=== PATIENT | female | born 1945 | race Caucasian/White ===

== ENCOUNTER → 2017-03-02 | Outpatient (CLI) | payer OTHER ==
[~2017-03-02] MED LIST: IOPAMIDOL (ISOVUE 370) 100 ML BTL IV ONE
== END ==
LOC: FIMAGING 10:34
PROVIDERS: ATTEND Thoracic Surgery (Cardiothoracic Vascular Surgery)
DX: I71.2 Thoracic aortic aneurysm, without rupture (principal)
CPT/HCPCS: 71275; Q9967

== ENCOUNTER 2017-03-08 06:35 | Inpatient (IN) | payer OTHER ==
[2017-03-08] MEDS ORDERED: diphenhydrAMINE 25 MG CAP PO ONE (06:45)
[2017-03-08] MEDS ORDERED: DIAZEPAM 5 MG TAB PO ONE (06:45)
[2017-03-08] MEDS ORDERED: FAMOTIDINE 20 MG TAB PO ONE (06:45)
[2017-03-08] MEDS ORDERED: ASPIRIN EC 325 MG TAB PO ONE (06:45)
[2017-03-08] MEDS ORDERED: NS 1,000 ML IV ONE (06:45)
--- NOTE | 2017-03-08 07:05 | CPEKG ---
Heart Rate: 66 RR Interval: 909 P-R Interval: 152 QRSD Interval: 96 QT Interval: 404 QTC Interval: 424 P [place]: 45 QRS [place]: 25 T Wave [place]: 59 EKG Severity - BORDERLINE ECG - EKG Impression: SINUS RHYTHM EKG Impression: BORDERLINE T ABNORMALITIES, LATERAL LEADS Electronically Signed By: Chris Woods 08-Mar-2017 08:35:45
[2017-03-08 07:28] LABS: % IMMATURE GRANULYOCYTES 0.4 % (0.0-1.1); ABSOLUTE IMMATURE GRANULOCYTES 0.02 10^3/uL (0.00-0.10); ADD DIFF? NO; ADD MORPH? NO; ADD SCAN? NO; ATYPICAL LYMPHOCYTE FLAG 10 (0-99); FRAGMENT RBC FLAG 0 (0-99); HEMATOCRIT 39.5 % (38.0-47.0); HEMOGLOBIN 12.9 g/dL (12.6-16.3); LEFT SHIFT FLG 0 (0-99); LIPEMIA HEMOLYSIS FLAG 80 (0-99); MEAN CELL HEMOGLOBIN 30.7 pg (27.9-34.1); MEAN CELL HEMOGLOBIN CONCENTR. 32.7 g/dL (32.4-36.7); MEAN PLATELET VOLUME 10.5 fL (8.7-11.7); PLATELET CLUMPS FLAG 0 (0-99); PLATELET COUNT 223 10^3/uL (150-400); RED CELL DISTRIBUTION WIDTH 12.8 % (11.5-15.2)
[2017-03-08 07:37] LABS: INR 0.94 (0.83-1.16); PROTIME(PATIENT) 12.5 SEC (12.0-15.0)
[2017-03-08] MEDS ORDERED: LIDOCAINE 1% 300 MG/30 ML SDV ONE (07:40)
[2017-03-08] MEDS ORDERED: fentaNYL 100 MCG/2 ML INJ ONE ×9 (07:40→17:12)
[2017-03-08] MEDS ORDERED: MIDAZOLAM 2 MG/2 ML VIAL ONE ×3 (07:41→18:03)
[2017-03-08] MEDS ORDERED: VERAPAMIL 5 MG/2 ML VIAL ONE (07:41)
[2017-03-08] MEDS ORDERED: IOPAMIDOL (ISOVUE-370) 150 ML BTL IV ONE (07:41)
[2017-03-08] MEDS ORDERED: HEPARIN 10,000 UNIT/10 ML MDV ONE ×4 (07:41→16:13)
[2017-03-08 07:49] LABS: ANION GAP 15 mEq/L (8-16); CALCIUM 9.8 mg/dL (8.5-10.4); CARBON DIOXIDE 23 mEq/l (22-31); CHLORIDE 105 mEq/L (97-110); CHOLESTEROL 249 mg/dL (140-220); CHOLESTEROL/HDL RATIO 2.62 RATIO (1.00-4.44); CREATININE 0.7 mg/dL (0.6-1.0); GLOMERULAR FILTRATION RATE > 60; GLUCOSE 87 mg/dL (70-100); HIGH DENSITY LIPOPROTEIN 95 mg/dL (40-85); LDL/HDL RATIO 1.49 RATIO (1.00-3.22); LOW DENSITY LIPOPROTEIN 142 mg/dL (80-100); MAGNESIUM 1.9 mg/dL (1.6-2.3); NON-HIGH DENSITY LIPOPROTEIN 154 mg/dL (90-129); POTASSIUM 4.3 mEq/L (3.5-5.2); SODIUM 143 mEq/L (134-144); TRIGLYCERIDE 61 mg/dL (35-135); VERY LOW DENSITY LIPOPROTEINS 12 mg/dL (8-25)
--- NOTE | 2017-03-08 08:30 | PDPROPOC ---
Sedation Plan of Care ASA Classification: ASA 3 Mallampati Score: Class 3 332 Rule: 332
--- NOTE | 2017-03-08 08:31 | PDHPUP ---
History & Physical Update H&P update statement: This history and physical update is based on an assessment of the patient which was completed after admission or registration (within 24 hours), but prior to the surgery/procedure. H&P update: H&P reviewed & patient examined, no change in patient's condition since H&P completed
[2017-03-08] MEDS ORDERED: ETOMIDATE 40 MG/20 ML INJ ONE (09:28)
[2017-03-08] MEDS ORDERED: OXYCODONE/APAP 5/325 TAB PO PRN (10:21)
[2017-03-08] MEDS ORDERED: NITROGLYCERIN 0.4 MG BTL SL PRN (10:21)
[2017-03-08] MEDS ORDERED: ATROPINE SULFATE 1 MG/10 ML SYR IVP PRN (10:21)
[2017-03-08] MEDS ORDERED: HYDROCODONE/APAP 5/325 TAB PO PRN (10:21)
[2017-03-08] MEDS ORDERED: ONDANSETRON 4 MG/2 ML VIAL IVP PRN (10:21)
--- NOTE | 2017-03-08 10:27 | PDDXCAT ---
Diagnostic Cath Note - . Date: 03/08/17 Residential Property Tax Appraiser: Olivia Indication: other (severe if not critical aortic stenosis) - Procedure Access: left wrist Procedure: left heart catheterization, coronary angiography, left ventriculogram , right heart catheterization - Materials Left Heart Cath materials: standard multipack (JL4, JR4, pigtail) Right Heart Cath size: 5F Right Heart Cath materials: PWP catheter - Findings-Left Heart Catheterization LM: 6 mm in size no flow limiting obstruction LAD: 4mm in size with branching diagonal and usual septal system AGATA III flow and no flow limiting dissection, thrombus or plaque LCX: dominant left system with 3 mm size and AGATA III flow no flow limiting plaque, dissection or thrombus RCA: non dominant bifurcates early into RV and acute marginal branch small in caliber no flow limiting obstruction EDP: 21mmHg LVEF: greater than 75% and hyperciontractile with no wall motion abnormality, no significant MR. The visualized protion of the thoracic aorta reveals a proximal aorta towards the right side. the aortic root has three sinuses of Valsalva most consistent with a trileaflet aortic valve that is likely functionally bicuspid. Wall motion: no segmental wall motion abnormality - Findings-Right Heart Catheterization RA: 7/12/9mmHg RV: 31/6/10mmHg PA: 30/14/20mmHg mean PAOP: 14/16/15mmHg AO: 108/55with a mean of 75mmHg CO: 6.42 liters per minute CI: 3.67 liters per minute ore meter squared Complications: none Estimated blood loss: <50ml Closure method: manual pressure Assessment: The patient has a left dominant system without flow limiting obstruction. Maximal luminal stenosis is 20% in the proximal LAD. The patient has critical aortic valve stenosis with an SUNDAR of 0.78cm squared. the peak to peak gradient was 84mmHg and the mean gradient was 54mmHg. The patient has a thoracic aortic aneurysm. Plan: Aortic valve and aortic root replacement under the care of Dr. Ponce.
--- NOTE | 2017-03-08 11:08 | CPEKG ---
Heart Rate: 60 RR Interval: 1000 P-R Interval: 172 QRSD Interval: 94 QT Interval: 432 QTC Interval: 432 P [place]: 45 QRS [place]: 40 T Wave [place]: 77 EKG Severity - BORDERLINE ECG - EKG Impression: SINUS RHYTHM EKG Impression: BORDERLINE T ABNORMALITIES, ANT-LAT LEADS Electronically Signed By: Chris Woods 08-Mar-2017 11:49:11
[2017-03-08 11:46] LABS: HEMOGLOBIN A1C 5.5 % (4.0-6.0)
[2017-03-08] MEDS ORDERED: NS 1,000 ML IV SCH (12:15)
--- NOTE | 2017-03-08 14:57 | CPEKG ---
Heart Rate: 66 RR Interval: 909 P-R Interval: 148 QRSD Interval: 92 QT Interval: 400 QTC Interval: 420 P [place]: 4 QRS [place]: 27 T Wave [place]: 69 EKG Severity - BORDERLINE ECG - EKG Impression: SINUS RHYTHM EKG Impression: BORDERLINE T ABNORMALITIES, ANT-LAT LEADS Electronically Signed By: Chris Woods 08-Mar-2017 16:31:07
[2017-03-08] MEDS ORDERED: AMINOCAPROIC ACID 5 GM/20 ML VIAL ONE ×2 (16:08→16:11)
[2017-03-08] MEDS ORDERED: ALBUMIN 5% 250 ML BOTTLE IV ONE ×2 (16:08→19:06)
[2017-03-08] MEDS ORDERED: CALCIUM CHLORIDE 1 GM/10 ML INJ ONE ×2 (16:08→16:10)
[2017-03-08] MEDS ORDERED: methylPREDNISolone SOD SUCC 1 GM/8 ML VIAL ONE (16:09)
[2017-03-08] MEDS ORDERED: LIDOCAINE 2% 100 MG/5 ML SYR ONE (16:09)
[2017-03-08] MEDS ORDERED: AMIODARONE HCL 150 MG/3 ML VIAL ONE ×2 (16:09→16:12)
[2017-03-08] MEDS ORDERED: CITRATE DEXTROSE SOLN 500 ML BAG ONE (16:09)
[2017-03-08] MEDS ORDERED: MAGNESIUM SULFATE 1 GM/2 ML VIAL ONE (16:09)
[2017-03-08] MEDS ORDERED: PROTAMINE SULFATE 50 MG/5 ML VIAL IVP ONE (16:10)
[2017-03-08] MEDS ORDERED: niCARdipine/NACL/200 ML BAG IV ONE (16:11)
[2017-03-08] MEDS ORDERED: DOPamine/DEXTROSE/250 ML BAG IV ONE (16:11)
[2017-03-08] MEDS ORDERED: POTASSIUM Cl (KCl) 20 MEQ/50 ML BAG IV ONE (16:11)
[2017-03-08] MEDS ORDERED: MILRINONE/DEXTROSE/100 ML BAG IV ONE (16:11)
[2017-03-08] MEDS ORDERED: NA BICARBONATE 50 MEQ/50 ML VIAL ONE (16:11)
[2017-03-08] MEDS ORDERED: ADENOSINE 6 MG/2 ML VIAL ONE (16:12)
[2017-03-08] MEDS ORDERED: ceFAZolin 1 GM VIAL ONE (16:12)
[2017-03-08] MEDS ORDERED: ROCURONIUM 100 MG/10 ML VIAL ONE (16:13)
[2017-03-08] MEDS ORDERED: PROPOFOL 200 MG/20 ML VIAL ONE (16:18)
--- NOTE | 2017-03-08 17:43 | PDANEPAE ---
ANE History of Present Illness av replacement, asc aorta aneur repair ANE Past Medical History - Cardiovascular History Hx Hypertension: No Hx Arrhythmias: Yes Hx Chest Pain: No Hx Coronary Artery / Peripheral Vascular Disease: No Hx CHF / Valvular Disease: No Hx Palpitations: No Cardiovascular History Comment: heart murmur. aortic stenosis. dilation of ascending aorta - Pulmonary History Hx COPD: No Hx Asthma/Reactive Airway Disease: No Hx Recent Upper Respiratory Infection: No Hx Oxygen in Use at Home: No Hx Sleep Apnea: No Sleep Apnea Screening Result - Last Documented: Negative Pulmonary History Comment: doesn't think she has 100% capacity with lungs - Neurologic History Hx Cerebrovascular Accident: No Hx Seizures: No Hx Dementia: No - Endocrine History Hx Diabetes: No - Renal History Hx Renal Disorders: Yes Renal History Comment: frequency with age - Liver History Hx Hepatic Disorders: No - Neurological & Psychiatric Hx Hx Neurological and Psychiatric Disorders: No - Cancer History Hx Cancer: No - Congenital Disorder History Hx Congenital Disorders: No - GI History Hx Gastrointestinal Disorders: No - Other Health History Other Health History: wears glasses - Chronic Pain History Chronic Pain: No - Surgical History Prior Surgeries: na ANE Review of Systems - Exercise capacity METS (RN): 4 METS ANE Patient History - Allergies Allergies/Adverse Reactions: ampicillin Allergy (Verified 03/07/17 18:33) Unknown Penicillins Allergy (Verified 03/08/17 15:43) Other-Enter Comments - Home Medications Home Medications: Aspirin EC [Aspirin EC 81 mg (*)] 81 mg PO DAILY 03/08/17 [Last Taken 3 Days Ago ] Herbals/Supplements -Info Only 1 ea PO DAILY 03/08/17 [Last Taken 3 Days Ago] Multivitamins [Multivitamin (*)] 1 each PO DAILY #0 03/08/17 [Last Taken 3 Days Ago] [place]-3 Fatty Acids [Fish Oil 1000 mg (*)] 1 cap PO DAILY #0 03/08/17 [Last Taken 3 Days Ago] Zolpidem Tartrate [Ambien] 5 mg PO DAILY PRN 03/08/17 [Last Taken Unknown] - NPO status NPO Since - Liquids (Date): 03/08/17 NPO Since - Liquids (Time): 13:30 NPO Since - Solids (Date): 03/07/17 NPO Since - Solids (Time): 19:00 - Smoking Hx Smoking Status: Never smoked - Family Anes Hx Family Hx Anesthesia Complications: none ANE Labs/Vital Signs - Labs Result Diagrams: 03/08/17 07:15 03/08/17 07:15 - Vital Signs Height: 168 cm Weight: 65.8 kg ANE Physical Exam - Airway Mallampati Score: Class 2 Mouth exam: normal dental/mouth exam - Pulmonary Pulmonary: no respiratory distress - Cardiovascular Cardiovascular: regular rate and rhythym - ASA Status ASA Status: III, E ANE Anesthesia Plan Anesthesia Plan: general endotracheal anesthesia Lines/Monitors: arterial line, central line, PENELOPE Urgent/Emergent Case: Sawyer solis completed preop but documented later for safe timely pt care
[2017-03-08] MEDS ORDERED: SUGAMMADEX SODIUM 200 MG/2 ML VIAL IVP ONE (19:28)
[2017-03-08] MEDS ORDERED: PANTOPRAZOLE SODIUM 40 MG in NS 100 ML IV ONE (19:53)
[2017-03-08] MEDS ORDERED: LACTULOSE 20 GM/30 ML UDCUP PO PRN (19:53)
[2017-03-08] MEDS ORDERED: MEPERIDINE 25 MG/ML SYR IVP PRN (19:53)
[2017-03-08] MEDS ORDERED: D50W 25 GM/50 ML SYR IVP PRN (19:53)
[2017-03-08] MEDS ORDERED: BISACODYL 10 MG SUPP PR PRN (19:53)
[2017-03-08] MEDS ORDERED: MAGNESIUM HYDROXIDE 30 ML UDCUP PO PRN (19:53)
[2017-03-08] MEDS ORDERED: CEPACOL LOZENGE PO PRN (19:53)
[2017-03-08] MEDS ORDERED: ACETAMINOPHEN 325 MG TAB PO PRN (19:53)
[2017-03-08] MEDS ORDERED: SODIUM CL NASAL 45 ML BTL EACHNARE PRN (19:53)
[2017-03-08] MEDS ORDERED: MAGNESIUM SULF 2 GM/WATER 50 ML IV ONE (19:53)
[2017-03-08] MEDS ORDERED: POLYETHYLENE GLYCOL 3350 17 GM PKT PO PRN (19:53)
[2017-03-08] MEDS ORDERED: ACETAMINOPHEN 650 MG SUPP PR PRN (19:53)
[2017-03-08] MEDS ORDERED: ONDANSETRON DISINTEGRATING 4 MG TAB PO PRN (19:53)
[2017-03-08] MEDS ORDERED: INSULIN REGULAR HUMAN 100 UNIT in NS 100 ML IV SCH (20:00)
--- NOTE | 2017-03-08 20:01 | POSTOPPROG ---
Post Op Note Date of Operation: 03/08/17 Surgeon: Son Ponce [employer] Aide: Rebeca Pre-op Diagnosis: , asc aortic aneurysm, question hemopericardium Post-op Diagnosis: same Procedure: Emergent AVR #23 Magna, replace asc aorta # 24 graft, SHORTY atriclip, drain p Findings: sanguinous pericardial effusion Inf/Abcess present in the surg proc area at time of surgery?: No EBL: 50-100
[2017-03-08] MEDS ORDERED: NALOXONE HCL 0.4 MG/ML INJ IVP PRN (20:23)
--- NOTE | 2017-03-08 20:23 | POSTANESTH ---
Post Anesthetic Evaluation Cardiovascular Status: Normal, Stable Respiratory Status: Requires Airway Assist (stable on vent) Level of Consciousness/Mental Status: Mildly Sleepy, Arousable Pain Control: Adequate, Prn Tx Ordered Nausea/Vomiting Control: Adequate, Prn Tx Ordered Complications Possibly Related to Anesthesia: None Noted
[2017-03-08] MEDS: fentaNYL 100 MCG/2 ML INJ IVP PRN ×2 (20:26→21:47)
[2017-03-08] MEDS: MUPIROCIN 2% 22 GM OINT NS SCH (21:16)
[2017-03-08] MEDS: SENNOSIDES/DOCUSATE SODIUM TAB PO SCH (21:17)
[2017-03-08] MEDS: ALBUMIN 5% 250 ML IV PRN ×2 (21:21→22:05)
[2017-03-08] MEDS: POTASSIUM Cl (KCl) 50 ML IV PRN (21:41)
[2017-03-08] MEDS: ceFAZolin 2 GM/DEXTROSE 100 ML IV SCH (21:41)
[2017-03-08 23:39] LABS: CALCULATED OXYGEN SATURATION 96 % (92-95); O2 CONCENTRATIION 60 % (0-100)
[2017-03-09] MEDS: POTASSIUM Cl (KCl) 50 ML IV PRN ×3 (00:02→03:10)
[2017-03-09] MEDS: ALBUMIN 5% 250 ML IV PRN ×2 (01:15→02:58)
[2017-03-09 01:24] LABS: CALCULATED OXYGEN SATURATION 99 % (92-95); O2 CONCENTRATIION 60 % (0-100)
[2017-03-09 01:24] LABS: CALCULATED OXYGEN SATURATION 97 % (92-95); O2 CONCENTRATIION 40 % (0-100)
[2017-03-09] MEDS: ONDANSETRON 4 MG/2 ML VIAL IVP PRN ×4 (01:29→21:26)
[2017-03-09] MEDS: METOCLOPRAMIDE 10 MG/2 ML VIAL IVP PRN ×3 (01:29→16:33)
[2017-03-09] MEDS: HYDROCODONE/APAP 5/325 TAB PO PRN ×2 (02:12→07:14)
[2017-03-09] MEDS: KETOROLAC 15 MG/1 ML SDV IVP PRN ×2 (02:17→08:01)
[2017-03-09 04:10] LABS: % IMMATURE GRANULYOCYTES 0.3 % (0.0-1.1); ABSOLUTE IMMATURE GRANULOCYTES 0.03 10^3/uL (0.00-0.10); ADD DIFF? NO; ADD MORPH? NO; ADD SCAN? NO; ATYPICAL LYMPHOCYTE FLAG 0 (0-99); FRAGMENT RBC FLAG 0 (0-99); HEMATOCRIT 27.1 % (38.0-47.0); HEMOGLOBIN 8.7 g/dL (12.6-16.3); LEFT SHIFT FLG 30 (0-99); LIPEMIA HEMOLYSIS FLAG 80 (0-99); MEAN CELL HEMOGLOBIN 31.1 pg (27.9-34.1); MEAN CELL HEMOGLOBIN CONCENTR. 32.1 g/dL (32.4-36.7); MEAN CELL VOLUME 96.8 fL (81.5-99.8); MEAN PLATELET VOLUME 10.4 fL (8.7-11.7); PLATELET CLUMPS FLAG 0 (0-99); PLATELET COUNT 99 10^3/uL (150-400); RED CELL DISTRIBUTION WIDTH 13.2 % (11.5-15.2)
--- NOTE | 2017-03-09 04:24 | GOP ---
[f rep st] OPERATIVE REPORT DATE OF OPERATION: 03/08/2017 SURGEON: Son Ponce DO COOLER WORKER: Ismael Jose PA-C. ANESTHESIOLOGIST: Kenroy Sullivan MD. PREOPERATIVE DIAGNOSIS: 1. Critical aortic stenosis with ascending aortic aneurysm and severe left ventricular hypertrophy. 2. Suspect hemopericardium post cath. POSTOPERATIVE DIAGNOSIS: 1. Critical aortic stenosis with ascending aortic aneurysm and severe left ventricular hypertrophy. 2. Suspect hemopericardium post cath. PROCEDURE PERFORMED: 1. Emergent aortic valve replacement with a #23 Magna bioprosthesis. 2. Replace ascending aorta with #24 Hemashield graft. 3. Drain hemopericardium. 4. Atrial clip to the left atrial appendage. FINDINGS: This patient presented for an elective diagnostic left heart catheterization in anticipat ion of aortic valve and ascending aortic aneurysm surgery. Post procedure, she developed pleuritic chest pain unremitting. An echo suggested small amount of effusion. However, she became somewhat h emodynamically unstable upon assuming the standing position, and for that reason, she was stabilized and brought to the operating room for emergent surgery. She was very stable hemodynamically coming into the operating room. DESCRIPTION OF PROCEDURE: She was intubated. Monitoring lines were placed. She was prepped and dr aped in sterile classical manner. Transesophageal echo was placed by Cardiology, which showed no se gmental wall motion abnormality and hyperdynamic very thick left ventricular function. Sternotomy w as performed. She was heparinized. The pericardium was opened and we were met with approximately 1 00 cc of leonie blood in the pericardium under slight pressure, that was evacuated. We spent some ti me inspecting the heart and found no obvious source nor any ongoing bleeding. We suspected microper foration of the ventricular wall, which was not clearly evident. We then cannulated the patient in the transverse arch and right atrium. A retrograde catheter was placed, as well as antegrade. Card iopulmonary bypass was begun. The aorta was crossclamped and an LV sump was placed in the right sup erior pulmonary vein. It should be noted the ascending aorta measured almost 5 cm in its widest dim ension externally. After arresting the heart, we placed an atrial clip in the left atrial appendage with complete occlusion and flush with the left atrium. We then excised the ascending aorta from t he sinotubular junction up to the base of the innominate artery. There was no significant plaque. The aortic wall was actually thick and quite firm. We then excised the heavily calcified bicuspid l eaflet with debridement of the anulus in the anterior and ventricular side of the anterior leaflet o f the mitral valve. CO2 was infused throughout the procedure. The chambers were irrigated for any debris while retrograde cardioplegia was administered. We then sized the patient for a 23 Magna christa ve which was sutured in place utilizing core knots without difficulty. We then beveled a 24 mm Dharmesh shield graft and sewed it end-to-side into the arch with continuous running 3-0 Prolene reinforced i n several sites. BioGlue was applied. We then cut the graft for appropriate length and sutured it end-to-side to the sinotubular junction with several sites of reinforcement. We then placed an aort ic vent in the graft, placed the patient in deep Trendelenburg and removed the cross-clamp with suct ion on the ascending aortic vent. Spontaneous cardiac activity was noted to resume. The sump was k ept until no further air was identified. It was then removed. With the patient in Trendelenburg wi th the aortic vent on, she was weaned from bypass. Heparin was reversed with protamine. The cannul a was removed and oversewn. Some time was spent inspecting all suture lines and looking for any pot ential source for the blood that was in the pericardium pre pump. None was identified. A drain was placed in the right pleura and the anterior mediastinum, partially entering the pericardium. The p ericardium was closed, as well as the thymic fat. The sternum was closed in standard fashion. The patient was extubated in the operating room, returned to ICU in stable condition. /[id number]/MODL
[2017-03-09 04:33] LABS: ANION GAP 10 mEq/L (8-16); CALCIUM 7.8 mg/dL (8.5-10.4); CARBON DIOXIDE 20 mEq/l (22-31); CHLORIDE 116 mEq/L (97-110); CREATININE 0.6 mg/dL (0.6-1.0); GLOMERULAR FILTRATION RATE > 60; GLUCOSE 119 mg/dL (70-100); POTASSIUM 5.1 mEq/L (3.5-5.2); SODIUM 146 mEq/L (134-144)
[2017-03-09] MEDS: ceFAZolin 2 GM/DEXTROSE 100 ML IV SCH ×3 (05:04→21:23)
[2017-03-09] MEDS: HEPARIN 5,000 UNIT/0.5 ML SYR SC SCH ×4 (05:09→22:13)
--- NOTE | 2017-03-09 07:13 | SOAPPROG ---
SOAP Progress Note Assessment/Plan: Assessment: POD#1 Emergent drainage hemopericardium, AVR #23 Magna bioprosthesis , Asc ao replacement #24 hemashield, prophylactic AtriClip lig SHORTY Post cath hemopericardium - Pericarditic pain with unstable hemodynamics prompting emergent surgical exploration. Small quantity of blood evacuated. No active bleeding or clear site of injury identified. Microperforation of LV suspected. Sx severe with enlarged asc ao - s/p tissue AVR with dacron interposition graft. Antithrombotic prophylaxis with ASA alone pending stability of rhythm. Valvular cardiomyopathy - Concentric LVH, LVEDP 21, LVEF > 60%. Off CPB without vasoactive support. No sustained tachycardia or bradyarrhythmia. No sig volume overload. Care with preload. AF prophylaxis with BB as allowed by BP. Acute expected blood loss anemia with thrombocytopenia - Stable. No blood or blood products transfused. CTOP modest. Care with VTE prophylaxis while platelet count depressed. Plan: Routine POD#1 orders re lines, drains, and mobility. NGT decompression of stomach bubble. Clear liquid diet thru lunch. Add duragesic patch x 1, scheduled toradol x 24h. Colloid prn CVP < 8. Start metoprolol 12.5 mg BID tonight. Tx to PCU. 03/09/17 07:10 Subjective: Nauseous. Back hurts. Objective: Vital Signs Temp Pulse Resp BP Pulse Ox 37.5 C 78 13 117/44 L 92 03/09/17 06:00 03/09/17 06:00 03/09/17 06:00 03/09/17 06:00 03/09/17 06:00 Laboratory Results 03/09/17 04:00 03/09/17 04:00 03/08/17 03/09/17 03/10/17 05:59 05:59 05:59 Intake Total 2683 Output Total 1685 Balance 998 PT 12.5 SEC (12.0-15.0) 03/08/17 07:15 INR 0.94 (0.83-1.16) 03/08/17 07:15 SR/ST with garrick of SVT. SBP trending up into 110s. Stable sats on min suppl O2. Adequate fluid balance. CXR-> No PTX. No pulm vasc congestion. No undrained effusions. Large amount stomach gas. Min CTOP. Labs ok. K mildly overcorrected. Na sugg intravasc dry. Physical Exam - Physical Exam General Appearance: alert, mild distress (uncomfortable) Respiratory: lungs clear (grossly), other (blakes x 2 y-d to pleurovac, serosang drainage, no tidal, no air leak) Cardiac/Chest: regular rate, rhythm, other (Sternum grossly stable. Sternotomy CDI. Vwires intact.) Abdomen: normal bowel sounds, soft Skin: warm/dry Extremities: swelling (trace) ICD10 Worksheet Patient Problems: Problems Problem Status Onset S/P AVR (aortic valve replacement) Acute S/P aneurysm repair Acute Aortic valve stenosis Chronic Coronary artery disease Chronic
[2017-03-09] MEDS: PANTOPRAZOLE SODIUM 40 MG TAB PO SCH (08:05)
[2017-03-09] MEDS: ASPIRIN EC 81 MG TAB PO SCH (08:05)
[2017-03-09] MEDS: SENNOSIDES/DOCUSATE SODIUM TAB PO SCH ×2 (08:05→22:42)
[2017-03-09] MEDS: MUPIROCIN 2% 22 GM OINT NS SCH ×2 (08:20→22:41)
[2017-03-09] MEDS ORDERED: KETOROLAC 15 MG/1 ML SDV IVP SCH (08:31)
[2017-03-09] MEDS ORDERED: fentaNYL 25 MCG PATCH TD ONE (09:00)
--- NOTE | 2017-03-09 09:09 | ECHO ---
[id number] Preliminary + + [address] : : [place] [address] : : [phone] + Adult Echocardiographic Report + -+ :Name: Husam GAUTHIER Date: 03/08/2017 12:32 PM : : Hospital Admission Number: [id number] Location: C: :: 1945 Gender: Female : :Age: 71 yrs Race: WH : :Reason For Study: chest pain s/p left heart cath : :History: chest pain s/o left heart CATH : + -+ Left Ventricle The left ventricle is normal in size and function. There is moderate concentric left ventricular hypertrophy. The left ventricular ejection fraction is normal. Ejection Fraction = 65%. The left ventricular wall motion is normal. Pericardium/Pleural Small pericardial effusion. Conclusion Limited echocardiogram to rule out pericardial effusion. (1) Left ventricular systolic ejection fraction was normal (65%) (2) Small pericardial effusion - no tamponade Final Reading Physician: electronically signed on 03/09/2017 09:08 AM Ordering Physician: Son Ponce Performed By: Dianne Amador
--- NOTE | 2017-03-09 10:19 | GCON ---
[f rep st] CONSULTATION BAG MAKER CONSULTATION Patient examined postoperatively after receiving an emergent aortic valve replacement and replacemen t of the ascending aorta with graft, drained pericardium and an atrial clip. The patient is a 71-ye ar-old white female with a past medical history including migraines and severe aortic stenosis. Aga in, she is examined postoperatively after an emergent aortic valve replacement. The patient is sitt ing up in a chair, somewhat drowsy. She states her chest pain is fairly well controlled. She has s ome nausea but no vomiting. She denies any shortness of breath, cough or production of sputum. PAST MEDICAL HISTORY: Again significant for aortic stenosis, migraines. PAST SURGICAL HISTORY: She has had tonsillectomy, colonoscopy. MEDICATIONS: At home include potassium, multivitamin, magnesium sulfate, fish oil, aspirin, vitamin D3. ALLERGIES: Amoxicillin and penicillin. SOCIAL HISTORY: No history of tobacco use. No history of alcohol use. PHYSICAL EXAM: VITAL SIGNS: Blood pressure is 121/43, pulse 81, respirations 12, temperature is 36 .8, oxygen saturation 97% on 2 L. GENERAL: She is a well-developed, well-nourished, elderly white female who is resting comfortably in no acute distress. HEENT: Eyes are PERRLA, EOMI. Throat show s no erythema or tonsillar hypertrophy. NECK: Supple with no cervical adenopathy. HEART: Regular rate and rhythm with a 2/6 systolic murmur at left sternal border without radiation. LUNGS: Dimin ished breath sounds but no wheeze. ABDOMEN: Soft, nontender. Bowel sounds present in all 4 quadra nts. EXTREMITIES: No clubbing, cyanosis, or edema. LABORATORIES: White count is 10.6, hemoglobin is 8.7, hematocrit 27, platelet count is 99. Sodium 146, potassium 5.0, chloride 113, CO2 is 20, BUN is 11, creatinine 0.6, glucose is 119. Arterial bl ood gas, pH 7.30, pCO2 of 42, pO2 of 106, bicarb 22, oxygen saturation is 97%. IMPRESSION: 1. Critical aortic stenosis and an ascending aortic aneurysm and left ventricular hypertrophy. 2. Status post emergent aortic valve replacement and grafting of the ascending aorta and drainage o f the pericardium with atrial clip. 3. Respiratory is currently stable. 4. History of migraines. RECOMMENDATION: 1. Continue adequate pain control. 2. Continue aggressive blood sugar control. 3. DVT and PE prophylaxis, holding anticoagulation for now. 4. Stress ulcer prophylaxis. 5. PT and OT. 6. Ambulation. /[id number]/MODL
[2017-03-09] MEDS ORDERED: traMADol 50 MG TAB PO PRN (11:01)
--- NOTE | 2017-03-09 13:46 | ECHO ---
[id number] + + [address] : : [place] [address] : : [phone] + Adult Echocardiographic Report + -+ :Name: DISHA Husam Date: 03/09/2017 11:23 AM BP: 121/41 mmHg : : Hospital Admission Number: [id number] Location: 0: :: 1945 Gender: Female Height: 66 in : :Age: 71 yrs Race: WH Weight: 156 lb : :Reason For Study: limited to eal AVR post-op : : BSA: 1.8 meters2 : :History: S/P AVR 03/08/17 : + -+ Doppler Measurements \T\ Calculations Ao V2 max: 144.2 cm/sec LV V1 max: 96.7 cm/sec Ao max P.3 mmHg LV V1 max P.7 mmHg Ao mean P.9 mmHg LV V1 mean P.1 mmHg Ao V2 mean: 104.4 cm/sec LV V1 mean: 68.9 cm/sec Ao V2 VTI: 30.5 cm LV V1 VTI: 20.4 cm Aortic Valve Two small jets of AI noted. There is a bioprosthetic aortic valve. The prosthetic aortic valve is well-seated. The gradient is normal for this prosthetic aortic valve. Pericardium/Pleural There is no pericardial effusion. Conclusion The study was technically limited. There is a bioprosthetic aortic valve. The prosthetic aortic valve is well-seated. Two small jets of AI noted. The gradient is normal for this prosthetic aortic valve. The echo is limited in its quality secondary to prone postion and post operative state. There is no evidence of a pericardial effusion. Final Reading Physician: Liz James signed on 03/09/2017 01:44 PM Ordering Physician: Son Ponce Performed By: Dianne Amador
[2017-03-09] MEDS: KETOROLAC 30 MG/1 ML SDV IVP PRN ×2 (15:40→21:26)
[2017-03-09 18:02] LABS: POTASSIUM 5.1 mEq/L (3.5-5.2)
[2017-03-09] MEDS: METOPROLOL TARTRATE 25 MG TAB PO SCH (21:40)
[2017-03-09] MEDS ORDERED: ZOLPIDEM TARTRATE 5 MG TAB PO SCH (22:10)
[2017-03-10 04:26] LABS: % IMMATURE GRANULYOCYTES 0.6 % (0.0-1.1); ADD DIFF? NO; ADD MORPH? NO; ADD SCAN? NO; ATYPICAL LYMPHOCYTE FLAG 0 (0-99); FRAGMENT RBC FLAG 0 (0-99); HEMATOCRIT 31.8 % (38.0-47.0); LEFT SHIFT FLG 10 (0-99); LIPEMIA HEMOLYSIS FLAG 80 (0-99); MEAN CELL HEMOGLOBIN CONCENTR. 31.4 g/dL (32.4-36.7); MEAN CELL VOLUME 98.5 fL (81.5-99.8); PLATELET CLUMPS FLAG 0 (0-99); PLATELET COUNT 121 10^3/uL (150-400); RED BLOOD CELL COUNT 3.23 10^6/uL (4.18-5.33); RED CELL DISTRIBUTION WIDTH 13.2 % (11.5-15.2)
[2017-03-10 05:12] LABS: ANION GAP 9 mEq/L (8-16); CARBON DIOXIDE 22 mEq/l (22-31); CHLORIDE 109 mEq/L (97-110); GLOMERULAR FILTRATION RATE 55; GLUCOSE 142 mg/dL (70-100); POTASSIUM 5.3 mEq/L (3.5-5.2); SODIUM 140 mEq/L (134-144)
[2017-03-10] MEDS: ceFAZolin 2 GM/DEXTROSE 100 ML IV SCH (05:30)
[2017-03-10] MEDS: HEPARIN 5,000 UNIT/0.5 ML SYR SC SCH ×3 (05:31→21:38)
--- NOTE | 2017-03-10 06:56 | SOAPPROG ---
SOAP Progress Note Assessment/Plan: POD#2 Emergent drainage hemopericardium, AVR #23 Magna bioprosthesis, Asc ao replacement #24 hemashield, prophylactic AtriClip lig SHORTY Post cath hemopericardium - Pericarditic pain with unstable hemodynamics prompting emergent surgical exploration. Small quantity of blood evacuated. No active bleeding or clear site of injury identified. Microperforation of LV suspected. Sx severe with enlarged asc ao - s/p tissue AVR with dacron interposition graft. Antithrombotic prophylaxis with ASA alone pending stability of rhythm. Valvular cardiomyopathy - Concentric LVH, LVEDP 21, LVEF > 60%. Off CPB without vasoactive support. No sustained tachycardia or bradyarrhythmia. No sig volume overload. Care with preload. AF prophylaxis with BB as allowed by BP. Acute expected blood loss anemia with thrombocytopenia - Stable. No blood or blood products transfused. VTE prophylaxis with heparin SQ. Post-op nausea - improved with removal of fentanyl path. Continue liquid diet. Avoid narcotics. Subjective: Nausea much improved. Still has back pain. Denies SOB. Objective: Vital Signs Temp Pulse Resp BP Pulse Ox 36.4 C 73 17 128/70 H 97 03/10/17 04:00 03/10/17 04:00 03/10/17 04:00 03/10/17 04:00 03/10/17 04:00 Laboratory Results 03/10/17 04:10 03/10/17 04:10 03/09/17 03/10/17 03/11/17 05:59 05:59 05:59 Intake Total 2683 1524.3 Output Total 1685 1555 Balance 998 -30.7 PT 12.5 SEC (12.0-15.0) 03/08/17 07:15 INR 0.94 (0.83-1.16) 03/08/17 07:15 Physical Exam - Physical Exam General Appearance: WD/WN, alert, no apparent distress EENT: No scleral icterus (R), No scleral icterus (L) Neck: normal inspection Respiratory: No respiratory distress Cardiac/Chest: regular rate, rhythm Abdomen: non-tender, soft, No distended Skin: normal color, warm/dry Extremities: No pedal edema Neuro/Psych: no motor/sensory deficits, alert, normal mood/affect, oriented x 3 ICD10 Worksheet Patient Problems: Problems Problem Status Onset S/P AVR (aortic valve replacement) Acute S/P aneurysm repair Acute Aortic valve stenosis Chronic Coronary artery disease Chronic
[2017-03-10] MEDS ORDERED: ACETAMINOPHEN 650 MG SUPP PR PRN (08:24)
[2017-03-10] MEDS ORDERED: traMADol 50 MG TAB PO PRN (08:25)
[2017-03-10] MEDS: KETOROLAC 30 MG/1 ML SDV IVP PRN ×3 (08:26→21:38)
[2017-03-10] MEDS ORDERED: NS 1,000 ML IV SCH (08:30)
[2017-03-10] MEDS: SENNOSIDES/DOCUSATE SODIUM TAB PO SCH ×2 (08:32→21:39)
[2017-03-10] MEDS: METOPROLOL TARTRATE 25 MG TAB PO SCH ×2 (08:32→21:38)
[2017-03-10] MEDS: PANTOPRAZOLE SODIUM 40 MG TAB PO SCH (08:33)
[2017-03-10] MEDS: ASPIRIN EC 81 MG TAB PO SCH (08:33)
[2017-03-10] MEDS: ACETAMINOPHEN 500 MG TAB PO PRN ×2 (08:42→15:27)
[2017-03-10] MEDS ORDERED: FUROSEMIDE 20 MG/2 ML VIAL IVP ONE (12:00)
[2017-03-10] MEDS: MUPIROCIN 2% 22 GM OINT NS SCH (12:50)
[2017-03-10] MEDS ORDERED: AMIODARONE HCL 150 MG/100 ML BAG (1.5 MG/ML) IV ONE (14:50)
--- NOTE | 2017-03-10 15:09 | CPEKG ---
Heart Rate: 138 RR Interval: 435 QRSD Interval: 76 QT Interval: 320 QTC Interval: 485 QRS [place]: 12 T Wave [place]: 47 EKG Severity - ABNORMAL ECG - EKG Impression: ATRIAL FIBRILLATION EKG Impression: DIFFUSE ST ABNORMALITIES,COULD BE RATE RELATED Electronically Signed By: Chris Woods 10-Mar-2017 15:52:49
[2017-03-10] MEDS ORDERED: AMIODARONE A.FIB-6HR INFSN (ORDER 2/3) IV ONE (15:30)
[2017-03-10] MEDS ORDERED: AMIODARONE A.FIB-LOAD DOSE(ORDER 1/3) IV ONE (15:30)
--- NOTE | 2017-03-10 15:53 | ASMTCASEMG ---
Living Arrangements What is your living Answers: Alone arrangement? Who do you live with? Type Of Residence What kind of residence do Answers: House you live in? Discharge Plan Comments Coordination Status Comments Notes: Pt admitted for chest discomfort post open heart surgery. Spoke w/ BIJU Soliz, likely no needs. Chest tubes will be removed tomorrow and tenative d/c date on Monday at the earliest. Pt will most likely d/c as independent and following up w/ cardiac rehab. Cleared by therapy. CM available for any changes. Date Signed: 03/10/2017 03:52 PM Electronically Signed By:Ann Marie Booker
[2017-03-10] MEDS ORDERED: METOPROLOL TARTRATE 25 MG TAB PO ONE (16:26)
[2017-03-10] MEDS ORDERED: METOPROLOL TARTRATE 5 MG/5 ML INJ IVP ONE (17:10)
[2017-03-10] MEDS ORDERED: AMIODARONE HCL 100 ML IV ONE (17:10)
[2017-03-10 18:06] LABS: POTASSIUM 4.6 mEq/L (3.5-5.2)
[2017-03-10] MEDS ORDERED: ALBUMIN 5% 500 ML IV ONE (18:22)
[2017-03-10] MEDS ORDERED: AMIODARONE A.FIB-18HR INFSN (ORDER 3/3) IV ONE (21:30)
[2017-03-11 04:25] LABS: POTASSIUM 5.2 mEq/L (3.5-5.2)
[2017-03-11] MEDS: HEPARIN 5,000 UNIT/0.5 ML SYR SC SCH ×3 (06:16→22:00)
--- NOTE | 2017-03-11 07:58 | SOAPPROG ---
SOAP Progress Note Assessment/Plan: Assessment: POD#3 Emergent drainage hemopericardium, AVR #23 Magna bioprosthesis , Asc ao replacement #24 hemashield, prophylactic AtriClip lig SHORTY Post cath hemopericardium - Pericarditic pain with unstable hemodynamics prompting emergent surgical exploration. Small quantity of blood evacuated. No active bleeding or clear site of injury identified. Microperforation of LV suspected. Sx severe with enlarged asc ao - s/p tissue AVR with dacron interposition graft. Antithrombotic prophylaxis with ASA alone pending stability of rhythm. Valvular cardiomyopathy - Concentric LVH, LVEDP 21, LVEF > 60%. Off CPB without vasoactive support. No bradyarrhythmias or backup pacing. No sig volume overload. Care with preload. Postoperative PAF - Onset of AF w RVR yest. Well tolerated. SR restored with amio and escalating doses of BB. High threshold for anticoagulation as SHORTY excl. Acute expected blood loss anemia with thrombocytopenia - Stable. No blood or blood products transfused. VTE prophylaxis w SQ hep. Plan: Remove mediastinal drain and TCPW. Cont Metoprolol 25 mg BID. Transition IV amio to orals. No fluid restriction. Colloid prn CVP < 8. FL diet. Advance as tolerated. Inc activity as tolerated. Dispo - Anticipate home on 03/11/17 07:53 Subjective: Hanging in there. Poor sleep aggravated by noise and disruption. Unmotivated for shower or PT. Less nauseous but min appetite. Objective: Vital Signs Temp Pulse Resp BP Pulse Ox 36.5 C 63 15 124/53 H 97 03/11/17 03:55 03/11/17 03:55 03/11/17 03:55 03/11/17 03:55 03/11/17 03:55 Laboratory Results 03/10/17 04:10 03/11/17 03:50 03/10/17 03/11/17 03/12/17 05:59 05:59 05:59 Intake Total 1524.3 1345 Output Total 1555 1860 Balance -30.7 -515 PT 12.5 SEC (12.0-15.0) 03/08/17 07:15 INR 0.94 (0.83-1.16) 03/08/17 07:15 AF yest ~12hr. SR restored ~3am. BP ok. Balanced I/Os. +3 kg overall. Mediastinal drain at removal criteria. CXR-> No pulm vasc congestion, no undrained effusions, mild basilar atelectasis K sl elev, likely secondary to NSAID. Physical Exam - Physical Exam General Appearance: alert, no apparent distress Respiratory: lungs clear (grossly), other (Blakes x 2 to bulb suction, serosang drainage) Cardiac/Chest: regular rate, rhythm, other (Sternum grossly stable. Sternotomy CDI) Abdomen: normal bowel sounds, non-tender, soft Skin: warm/dry Extremities: other (no visible edema) ICD10 Worksheet Patient Problems: Problems Problem Status Onset Postoperative atrial fibrillation Acute S/P AVR (aortic valve replacement) Acute S/P aneurysm repair Acute Aortic valve stenosis Chronic Coronary artery disease Chronic
[2017-03-11] MEDS: PANTOPRAZOLE SODIUM 40 MG TAB PO SCH (08:01)
[2017-03-11] MEDS: ASPIRIN EC 81 MG TAB PO SCH (08:01)
[2017-03-11] MEDS: METOPROLOL TARTRATE 25 MG TAB PO SCH ×2 (08:02→20:52)
[2017-03-11] MEDS: SENNOSIDES/DOCUSATE SODIUM TAB PO SCH ×2 (08:03→20:51)
[2017-03-11] MEDS: AMIODARONE HCL 200 MG TAB PO SCH ×2 (10:30→20:52)
[2017-03-11] MEDS ORDERED: MELATONIN 3 MG TAB PO PRN (11:17)
[2017-03-11] MEDS: IBUPROFEN 600 MG TAB PO SCH ×3 (12:35→20:52)
[2017-03-12] MEDS ORDERED: ALBUMIN 5% 250 ML IV PRN (04:20)
[2017-03-12] MEDS ORDERED: AMIODARONE HCL 100 ML IV ONE (04:30)
[2017-03-12] MEDS: IBUPROFEN 600 MG TAB PO SCH ×4 (05:18→21:19)
[2017-03-12] MEDS: HEPARIN 5,000 UNIT/0.5 ML SYR SC SCH ×3 (05:18→22:51)
[2017-03-12 05:24] LABS: HEMATOCRIT 27.2 % (38.0-47.0); HEMOGLOBIN 8.8 g/dL (12.6-16.3)
[2017-03-12 05:51] LABS: ANION GAP 10 mEq/L (8-16); CALCIUM 8.3 mg/dL (8.5-10.4); CARBON DIOXIDE 22 mEq/l (22-31); CHLORIDE 106 mEq/L (97-110); CREATININE 0.7 mg/dL (0.6-1.0); GLOMERULAR FILTRATION RATE > 60; GLUCOSE 125 mg/dL (70-100); POTASSIUM 4.2 mEq/L (3.5-5.2); SODIUM 138 mEq/L (134-144)
--- NOTE | 2017-03-12 07:51 | SOAPPROG ---
SOAP Progress Note Assessment/Plan: Assessment: POD#4 Emergent drainage hemopericardium, AVR #23 Magna bioprosthesis , Asc ao replacement #24 hemashield, prophylactic AtriClip lig SHORTY Post cath hemopericardium - Pericarditic pain with unstable hemodynamics prompting emergent surgical exploration. Small quantity of blood evacuated. No active bleeding or clear site of injury identified. Microperforation of LV suspected. Sx severe with enlarged asc ao - s/p tissue AVR with dacron interposition graft. Antithrombotic prophylaxis as per rhythm. Valvular cardiomyopathy - Concentric LVH, LVEDP 21, LVEF > 60%. Off CPB without vasoactive support. No bradyarrhythmias or backup pacing. No sig volume overload. Care with preload. Postoperative PAF - Onset of AF w RVR on POD#2. Well tolerated. SR restored with amio and escalating doses of BB. Back in AF w RVR early this am, suboptimally responsive to bolus amio. IV BB planned. IVF prn BP support. Coumadin initiated for [id number] score of 3. Target INR 2, range 2-3, duration TBD. Acute expected blood loss anemia with thrombocytopenia - Stable. No blood or blood products transfused. Platelet rebound noted. VTE prophylaxis w SQ hep pending INR > 1.6. Plan: Remove pleural drain. IV metoprolol 5 mg prn sustained HR > 130. Inc oral metoprolol to 37.5 mg BID. Cont amio 200 mg BID. NS @ 75 ml/h x 1-2 L. 500ml bolus prn SBP < 90. Coumadin 5 mg today. Inc activity as tolerated. Dispo - Anticipate home 1-2 days, pending stability of rhythm 03/12/17 07:47 Subjective: "Great day" yest and bummed about recurrent AF. Aware of palpitations. Comfortable at rest. Did get woozy when up to bathroom. +BM. Satisfactory analgesia on ibuprofen and tylenol. Objective: Vital Signs Temp Pulse Resp BP Pulse Ox 36.6 C 130 H 22 H 98/64 L 95 03/12/17 07:40 03/12/17 07:40 03/12/17 07:40 03/12/17 07:40 03/12/17 07:40 Laboratory Results 03/12/17 05:00 03/12/17 05:00 03/11/17 03/12/17 03/13/17 05:59 05:59 05:59 Intake Total 1345 959 Output Total 1860 1590 250 Balance -515 -631 -250 PT 12.5 SEC (12.0-15.0) 03/08/17 07:15 INR 0.94 (0.83-1.16) 03/08/17 07:15 Recurrent AF ~4am. VVR, sporadic RVR. K, Hct, sats ok. BP marginal and 250 ml albumin given with good effect. Almost off O2. Adequate fluid balance. Pleural drain output below removal criteria. - Pending Discharge Pending Discharge Within 48 Hours: Yes Pending Discharge Date: 03/14/17 Pending Discharge Time: 11:00 Physical Exam - Physical Exam General Appearance: alert, no apparent distress Respiratory: lungs clear (excellent insp effort), other (jacqui to bulb suction, thin serosang drainage) Cardiac/Chest: tachycardia, irregularly irregular, other (Sternum grossly stable. Sternotomy CDI) Abdomen: non-tender, soft Skin: warm/dry Extremities: other (no visible edema) ICD10 Worksheet Patient Problems: Problems Problem Status Onset Postoperative atrial fibrillation Acute S/P AVR (aortic valve replacement) Acute S/P aneurysm repair Acute Aortic valve stenosis Chronic Coronary artery disease Chronic
[2017-03-12] MEDS: AMIODARONE HCL 200 MG TAB PO SCH ×2 (08:24→21:19)
[2017-03-12] MEDS: PANTOPRAZOLE SODIUM 40 MG TAB PO SCH (08:24)
[2017-03-12] MEDS: ASPIRIN EC 81 MG TAB PO SCH (08:24)
[2017-03-12] MEDS ORDERED: SENNOSIDES/DOCUSATE SODIUM TAB PO PRN (09:00)
[2017-03-12] MEDS: METOPROLOL TARTRATE 5 MG/5 ML INJ IVP SCH ×2 (09:50→10:14)
[2017-03-12] MEDS ORDERED: NS 1,000 ML IV SCH (10:00)
[2017-03-12] MEDS ORDERED: METOPROLOL TARTRATE 25 MG TAB PO ONE (12:00)
[2017-03-12] MEDS: METOPROLOL TARTRATE 25 MG TAB PO SCH ×2 (12:08→21:20)
[2017-03-12] MEDS ORDERED: METOPROLOL TARTRATE 5 MG/5 ML INJ IVP ONE (15:33)
[2017-03-12] MEDS ORDERED: WARFARIN SODIUM 5 MG TAB PO ONE (16:00)
[2017-03-12] MEDS ORDERED: NS BOLUS 500 ML (Wide open) IV ONE (17:00)
[2017-03-13] MEDS: IBUPROFEN 600 MG TAB PO SCH ×4 (06:29→21:10)
[2017-03-13] MEDS: HEPARIN 5,000 UNIT/0.5 ML SYR SC SCH ×3 (06:29→21:10)
[2017-03-13] MEDS: METOPROLOL TARTRATE 25 MG TAB PO SCH (06:50)
[2017-03-13 07:05] LABS: HEMATOCRIT 26.3 % (38.0-47.0); HEMOGLOBIN 8.4 g/dL (12.6-16.3); MEAN CELL HEMOGLOBIN CONCENTR. 31.9 g/dL (32.4-36.7); RED BLOOD CELL COUNT 2.71 10^6/uL (4.18-5.33); RED CELL DISTRIBUTION WIDTH 13.2 % (11.5-15.2)
[2017-03-13 07:14] LABS: INR 1.45 (0.83-1.16); PROTIME(PATIENT) 17.6 SEC (12.0-15.0)
--- NOTE | 2017-03-13 07:30 | SOAPPROG ---
SOAP Progress Note Assessment/Plan: POD#5 Emergent drainage hemopericardium, AVR #23 Magna bioprosthesis, Asc ao replacement #24 hemashield, prophylactic AtriClip lig SHORTY Post cath hemopericardium - Pericarditic pain with unstable hemodynamics prompting emergent surgical exploration. Small quantity of blood evacuated. No active bleeding or clear site of injury identified. Microperforation of LV suspected. Sx severe with enlarged asc ao - s/p tissue AVR with dacron interposition graft. Valvular cardiomyopathy - Concentric LVH, LVEDP 21, LVEF > 60%. Off CPB without vasoactive support. No sustained tachycardia or bradyarrhythmia. No sig volume overload. Care with preload. AF prophylaxis with amiodarone and beta-arash. Acute expected blood loss anemia with thrombocytopenia - Stable. No blood or blood products transfused. Post-op nausea - improved with removal of fentanyl path. Continue liquid diet. Avoid narcotics. Postoperative PAF - Continue beta-arash/amiodarone. Coumadin initiated for [id number] score of 3. Target INR 2, range 2-3, duration TBD. Subjective: Feels minor palpitations this morning. Denies SOB. Comfortable. Objective: Vital Signs Temp Pulse Resp BP Pulse Ox 36.6 C 68 18 111/62 99 03/13/17 04:00 03/13/17 04:00 03/13/17 04:00 03/13/17 04:00 03/13/17 04:00 Laboratory Results 03/13/17 06:50 03/12/17 03/13/17 03/14/17 05:59 05:59 05:59 Intake Total 959 3540 Output Total 1590 1550 Balance -631 1990 PT 17.6 SEC (12.0-15.0) H 03/13/17 06:50 INR 1.45 (0.83-1.16) H 03/13/17 06:50 Physical Exam - Physical Exam General Appearance: WD/WN, alert, no apparent distress EENT: No scleral icterus (R), No scleral icterus (L) Neck: normal inspection Respiratory: No respiratory distress Cardiac/Chest: irregularly irregular Abdomen: non-tender, soft, No distended Skin: normal color, warm/dry Extremities: No pedal edema Neuro/Psych: no motor/sensory deficits, alert, normal mood/affect, oriented x 3 ICD10 Worksheet Patient Problems: Problems Problem Status Onset Postoperative atrial fibrillation Acute S/P AVR (aortic valve replacement) Acute S/P aneurysm repair Acute Aortic valve stenosis Chronic Coronary artery disease Chronic
[2017-03-13 07:44] LABS: POTASSIUM 3.9 mEq/L (3.5-5.2)
[2017-03-13] MEDS ORDERED: METOPROLOL TARTRATE 25 MG TAB PO ONE (08:04)
[2017-03-13] MEDS: PANTOPRAZOLE SODIUM 40 MG TAB PO SCH (08:07)
[2017-03-13] MEDS: AMIODARONE HCL 200 MG TAB PO SCH ×2 (08:07→21:10)
[2017-03-13] MEDS: ASPIRIN EC 81 MG TAB PO SCH (08:08)
[2017-03-13] MEDS ORDERED: AMIODARONE HCL 100 ML IV ONE (08:12)
[2017-03-13] MEDS ORDERED: POTASSIUM CL 20 MEQ TAB PO ONE (08:14)
[2017-03-13] MEDS: METOPROLOL TARTRATE 5 MG/5 ML INJ IVP SCH (11:20)
[2017-03-13] MEDS ORDERED: WARFARIN SODIUM 5 MG TAB PO ONE (16:00)
[2017-03-13] MEDS: METOPROLOL TARTRATE 50 MG TAB PO SCH (21:09)
[2017-03-13] MEDS: ZOLPIDEM TARTRATE 5 MG TAB PO PRN (22:48)
[2017-03-14 06:22] LABS: HEMOGLOBIN 8.2 g/dL (12.6-16.3); MEAN CELL HEMOGLOBIN 32.2 pg (27.9-34.1); MEAN CELL HEMOGLOBIN CONCENTR. 32.8 g/dL (32.4-36.7); RED BLOOD CELL COUNT 2.55 10^6/uL (4.18-5.33); RED CELL DISTRIBUTION WIDTH 13.6 % (11.5-15.2)
[2017-03-14] MEDS: IBUPROFEN 600 MG TAB PO SCH ×4 (06:24→21:05)
[2017-03-14] MEDS: HEPARIN 5,000 UNIT/0.5 ML SYR SC SCH (06:26)
[2017-03-14 06:53] LABS: INR 2.44 (0.83-1.16); PROTIME(PATIENT) 26.7 SEC (12.0-15.0)
[2017-03-14 06:58] LABS: ANION GAP 8 mEq/L (8-16); CALCIUM 8.3 mg/dL (8.5-10.4); CARBON DIOXIDE 20 mEq/l (22-31); CHLORIDE 110 mEq/L (97-110); CREATININE 0.8 mg/dL (0.6-1.0); GLOMERULAR FILTRATION RATE > 60; GLUCOSE 94 mg/dL (70-100); POTASSIUM 4.2 mEq/L (3.5-5.2); SODIUM 138 mEq/L (134-144)
--- NOTE | 2017-03-14 07:34 | SOAPPROG ---
SOAP Progress Note Assessment/Plan: Assessment: POD#6 Emergent drainage hemopericardium, AVR #23 Magna bioprosthesis , Asc ao replacement #24 hemashield, prophylactic AtriClip lig SHORTY Post cath hemopericardium - Pericarditic pain with unstable hemodynamics prompting emergent surgical exploration. Small quantity of blood evacuated. No active bleeding or clear site of injury identified. Microperforation of LV suspected. Sx severe with enlarged asc ao - s/p tissue AVR with dacron interposition graft. Antithrombotic prophylaxis as per rhythm. Valvular cardiomyopathy - Concentric LVH, LVEDP 21, LVEF > 60%. Off CPB without vasoactive support. No bradyarrhythmias or backup pacing. No sig volume overload. Care with preload. Postoperative PAF - Onset of AF on POD#2. Periods of SR restored with amio and escalating doses of BB. IVF prn BP support. Coumadin initiated for [id number] score of 3. Target INR 2, range 2-3, duration TBD. Acute expected blood loss anemia with thrombocytopenia - Stable. No blood or blood products transfused. Platelet rebound noted. VTE prophylaxis coumadin. Plan: Cont metoprolol 50 mg BID. Cont amio 200 mg BID. Stop SQ hep. No Coumadin today. Inc activity as tolerated. Dispo - Anticipate home this afternoon 03/14/17 07:28 Subjective: Feels great. Slept soundly. Thrilled no recent palpitations. Tolerating light activity with ease. Hopeful for home today. Objective: Vital Signs Temp Pulse Resp BP Pulse Ox 36.9 C 68 13 128/56 H 92 03/14/17 04:00 03/14/17 04:00 03/14/17 04:00 03/14/17 04:00 03/14/17 04:00 Laboratory Results 03/14/17 06:15 03/14/17 06:15 03/13/17 03/14/17 03/15/17 05:59 05:59 05:59 Intake Total 3540 1155 Output Total 1550 750 Balance 1989 405 PT 26.7 SEC (12.0-15.0) H D 03/14/17 06:15 INR 2.44 (0.83-1.16) H 03/14/17 06:15 Holding SR since mid morning yest. Robust BP and beginning to mobilize fluid. Off O2. CXR -> tiny left pleural effusion w compressive atelectasis. H/H likely dilutional. +3 kg/last 48h. +6 kg overall. Rapid rise in INR to therapeutic level. - Pending Discharge Pending Discharge Within 24 Hours: Yes Pending Discharge Date: 03/15/17 Pending Discharge Time: 11:00 Physical Exam - Physical Exam General Appearance: alert, no apparent distress Respiratory: crackles (left base) Cardiac/Chest: regular rate, rhythm, other (Sternum grossly stable. Sternotomy CDI.) Abdomen: non-tender, soft Skin: warm/dry Extremities: other (no visible dependent edema) ICD10 Worksheet Patient Problems: Problems Problem Status Onset Postoperative atrial fibrillation Acute S/P AVR (aortic valve replacement) Acute S/P aneurysm repair Acute Aortic valve stenosis Chronic Coronary artery disease Chronic
[2017-03-14] MEDS: PANTOPRAZOLE SODIUM 40 MG TAB PO SCH (10:09)
[2017-03-14] MEDS: ASPIRIN EC 81 MG TAB PO SCH (10:09)
[2017-03-14] MEDS: METOPROLOL TARTRATE 50 MG TAB PO SCH ×2 (10:09→21:05)
[2017-03-14] MEDS: AMIODARONE HCL 200 MG TAB PO SCH ×2 (10:09→21:05)
[2017-03-14] MEDS: ACETAMINOPHEN 500 MG TAB PO PRN ×2 (15:44→23:05)
[2017-03-14] MEDS: ZOLPIDEM TARTRATE 5 MG TAB PO PRN (23:05)
[2017-03-15] MEDS: IBUPROFEN 600 MG TAB PO SCH (05:54)
[2017-03-15 07:51] LABS: INR 2.1 (0.83-1.16); PROTIME(PATIENT) 23.7 SEC (12.0-15.0)
[2017-03-15 08:04] VITALS: RESP 18
[2017-03-15] MEDS ORDERED: WARFARIN SODIUM 2.5 MG TAB PO SCH (08:15)
--- NOTE | 2017-03-15 08:18 | SOAPPROG ---
SOAP Progress Note Assessment/Plan: Assessment: POD#7 Emergent drainage hemopericardium, AVR #23 Magna bioprosthesis , Asc ao replacement #24 hemashield, prophylactic AtriClip lig SHORTY Post cath hemopericardium - Pericarditic pain with unstable hemodynamics prompting emergent surgical exploration. Small quantity of blood evacuated. No active bleeding or clear site of injury identified. Microperforation of LV suspected. Sx severe with enlarged asc ao - s/p tissue AVR with dacron interposition graft. Antithrombotic prophylaxis as per rhythm. Valvular cardiomyopathy - Concentric LVH, LVEDP 21, LVEF > 60%. Off CPB without vasoactive support. No bradyarrhythmias or backup pacing. No sig volume overload. Care with preload. Postoperative PAF - Onset of AF on POD#2. Periods of SR restored with amio and escalating doses of BB. IVF prn BP support. Coumadin initiated for [id number] score of 3. Target INR 2, range 2-3, duration TBD. Acute expected blood loss anemia with thrombocytopenia - Stable. No blood or blood products transfused. Platelet rebound noted. VTE prophylaxis coumadin. Plan: Ok for discharge. Instructions re diet, meds, activity, f/u and wound care to be reviewed in presence of family. 03/15/17 08:17 Subjective: Feels well. Satisfactory analgesia on Tylenol. Looking forward to going home. Sister in town to help out for a week. Objective: Vital Signs Temp Pulse Resp BP Pulse Ox 36.7 C 72 18 140/74 H 98 03/15/17 08:00 03/15/17 08:00 03/15/17 08:00 03/15/17 08:00 03/15/17 08:00 Laboratory Results 03/14/17 06:15 03/14/17 06:15 03/14/17 03/15/17 03/16/17 05:59 05:59 05:59 Intake Total 1155 1500 Output Total 750 950 Balance 405 550 PT 23.7 SEC (12.0-15.0) H 03/15/17 07:20 INR 2.10 (0.83-1.16) H 03/15/17 07:20 Holding SR. SBP labile, generally < 120. Stable sats on room air. Adequate fluid balance. Appropriate fall in INR with Coumadin hold yest. Physical Exam - Physical Exam General Appearance: alert, no apparent distress Respiratory: crackles (bases) Cardiac/Chest: regular rate, rhythm, other (Sternotomy and CT sites healing well.) Abdomen: non-tender, soft Skin: warm/dry Extremities: swelling (1+ dependent) ICD10 Worksheet Patient Problems: Problems Problem Status Onset Postoperative atrial fibrillation Acute S/P AVR (aortic valve replacement) Acute S/P aneurysm repair Acute Aortic valve stenosis Chronic Coronary artery disease Chronic
[2017-03-15] MEDS: PANTOPRAZOLE SODIUM 40 MG TAB PO SCH (08:53)
[2017-03-15] MEDS: METOPROLOL TARTRATE 50 MG TAB PO SCH (08:53)
[2017-03-15] MEDS: AMIODARONE HCL 200 MG TAB PO SCH (08:53)
[2017-03-15] MEDS: ASPIRIN EC 81 MG TAB PO SCH (08:53)
[2017-03-15] MEDS: ACETAMINOPHEN 500 MG TAB PO PRN (10:25)
[2017-03-15 11:19] VITALS: BP 112/55; PULSE 65; TEMP 98.4; O2SAT 95
--- NOTE | 2017-03-15 13:37 | PDDCSUM ---
Discharge Summary Discharge Summary: DATE OF ADMISSION: 03/08/17 DATE OF DISCHARGE: 03/15/17 DISPOSITION: Home, self-care PRINCIPAL ADMISSION DIAGNOSES: 1. Severe aortic valve stenosis 2. Enlarged ascending aorta PRINCIPAL DISCHARGE DIAGNOSES: 1. Left dominant coronary system without flow limiting obstruction 2. Valvular cardiomyopathy 3. Post cath hemopericardium 4. Status post aortic valve replacement with a bioprosthesis 5. Status post ascending aortic replacement with a dacron interposition graft 6. Status post prophylactic AtriClip ligation of the left atrial appendage 7. Acute expected blood loss anemia 8. Postoperative paroxysmal atrial fibrillation HISTORY OF PRESENT ILLNESS: 71 yo female with a longstanding cardiac murmur, declining stamina, exertional chest tightness, and presyncope, found to have severe with mild AI and a 4.7 cm ascending aorta. Evaluated for AVR with ascending aortic replacement and admitted in advance of scheduled surgery to complete risk stratification and evaluate candidacy for a minimally invasive approach. Cardiac cath notable for elevated LV filling pressures but negative for obstructive CAD or LVSD. Procedure complicated by pericarditic pain with unstable hemodynamics and echo evidence of a small pericardial effusion. Suspected to have a hemopericardium and taken emergently to the OR. PAST MEDICAL HISTORY: migraine auras MEDICATIONS ON ADMISSION: ASA 81 mg daily, MVI daily, Fish Oil 1000 mg daily, herbal supplement daily, Ambien 5 mg hs prn ALLERGIES/SENSITIVITIES: Penicillin and amoxicillin causing severe nausea CONSULTANTS: Pulmonology/critical care (Emily) PROCEDURES/IMAGIN/30 (Olivia): Right and left heart catheterization with selective coronary angiography, left ventriculogram, and measurement of transvalvular gradients. Access via left wrist. 03/08 (Olivia): Limited transthoracic echocardiogram 03/08 (Kris): Emergent median sternotomy. Drainage of hemopericardium. Aortic valve replacement with a 23 mm [place] Magna bovine pericardial bioprosthesis. Ascending aortic replacement with a 24 mm Hemashield graft. Prophylactic AtriClip ligation of the left atrial appendage. 03/09 (Kris): Limited transthoracic echocardiogram ABBREVIATED HOSPITAL COURSE BY ACTIVE PROBLEM LIST: 1. Post cath hemopericardium - Confirmed upon opening the pericardium. Small quantity of blood evacuated. No active bleeding or clear site of injury identified. Microperforation of LV suspected. 2. Sx severe with enlarged asc ao - s/p tissue AVR with dacron interposition graft. Primary antithrombotic prophylaxis with ASA. Adjunctive anticoagulation as per rhythm. 3. Valvular cardiomyopathy - Concentric LVH, LVEDP 21, LVEF > 60%. Off CPB without vasoactive support. No bradyarrhythmias or backup pacing. No sig volume overload. Care with preload/diuretics. 4. Postoperative PAF - Onset of AF on POD#2. Periods of SR restored with amio and escalating doses of BB. IVF prn BP support. Coumadin initiated for [id number] [id number] score of 3. Target INR 2-3, duration TBD. 5. Acute expected blood loss anemia with thrombocytopenia - Stable. No blood or blood products transfused. Platelet rebound noted. DISCHARGE CLINICAL INFORMATION: Sternum grossly stable. Sternotomy CDI, sutured, +Dermabond. HR 60s-70s. SBP 110s-130s. SpO2 95% RA. Wt 6 kg above admission at 65.8 kilos. WBC 6.3, Hgb ,8.2 HCT 25, Plt 97, Na 138, K 4.2, Cr 0.8 Coumadin flow sheet: Date INR mg 03/12 n/d 5 03/13 1.45 5 03/14 2.44 0 03/15 2.10 2.5 DISCHARGE MEDICATIONS: As on admission with the following adjustments: 1. Hold ASA for INR > 3. NEW prescriptions: 1. Amiodarone 200 mg BID thru 03/25, then 200 mg daily x 2 weeks or as directed. 2. Metoprolol tartrate 50 mg BID. 3. Coumadin 2.5 mg daily or as directed by INR/anticoagulation clinic. 4. Ultram 50 mg 1/2 to 2 tabs q 8h prn breakthrough incisional discomfort. OTC: Tylenol 650-1000 mg 4x daily prn incisional discomfort. Not to exceed 3, 000 mg daily. FOLLOW UP APPOINTMENTS: 1. CV surgery: with Dr Pocne at [facility] on 03/21 at 10:15 am. 2. Cardiology: with Dr Baker at [facility] within 4-6 weeks. Appointment to be established during surgical visit. 3. [facility] anticoagulation clinic: on 03/16 at 10:30 am. FOLLOW UP TESTIN. INR on 03/16. Results to [facility]. 2. CXR prior to surgical appointment.
== END 2017-03-15 12:41 | disposition home or self-care (01) | DRG 907 ==
LOC: FCATH 06:35 → F2W 12:03 → F2N 16:01 → F2W 03-09 15:04
PROVIDERS: ADMIT Internal Medicine Cardiovascular Disease; ATTEND Thoracic Surgery (Cardiothoracic Vascular Surgery)
PROC: 02RX0JZ Replacement of Thoracic Aorta, Ascending/Arch with Synthetic Substitute, Open Approach (ICD-10-PCS; principal; 2017-03-08 16:00)
PROC: 02L70CK Occlusion of Left Atrial Appendage with Extraluminal Device, Open Approach (ICD-10-PCS; principal; 2017-03-08 16:00)
PROC: 5A1221Z Performance of Cardiac Output, Continuous (ICD-10-PCS; principal; 2017-03-08 16:00)
PROC: 0W9D0ZZ Drainage of Pericardial Cavity, Open Approach (ICD-10-PCS; principal; 2017-03-08 16:00)
PROC: 02RF08Z Replacement of Aortic Valve with Zooplastic Tissue, Open Approach (ICD-10-PCS; principal; 2017-03-08 16:00)
PROC: B2151ZZ Fluoroscopy of Left Heart using Low Osmolar Contrast (ICD-10-PCS; 2017-03-08 16:00)
PROC: B246ZZ4 Ultrasonography of Right and Left Heart, Transesophageal (ICD-10-PCS; 2017-03-08 16:00)
PROC: 4A023N8 Measurement of Cardiac Sampling and Pressure, Bilateral, Percutaneous Approach (ICD-10-PCS; 2017-03-08 16:00)
PROC: B2111ZZ Fluoroscopy of Multiple Coronary Arteries using Low Osmolar Contrast (ICD-10-PCS; 2017-03-08 16:00)
PROC: B246ZZ4 Ultrasonography of Right and Left Heart, Transesophageal (ICD-10-PCS; 2017-03-09)
DX: I97.630 Postprocedural hematoma of a circulatory system organ or structure following a cardiac catheterization (principal); K66.1 Hemoperitoneum; I35.0 Nonrheumatic aortic (valve) stenosis; I71.2 Thoracic aortic aneurysm, without rupture; D62 Acute posthemorrhagic anemia; I48.0 Paroxysmal atrial fibrillation; D69.6 Thrombocytopenia, unspecified
CPT/HCPCS: 82947-QW; 97116-GP; 97161-GP; 97166-GO; 97530-GP; 97535-GO; C1768; C1769; G8978-GP-CK; G8979-GP-CI; J0153; J0171; J0282; J0690; J1265; J1644; J1815; J1885; J1940; J2001; J2250; J2260; J2405; J2704; J2720; J2765; J2930; J3010; J7060; P9041; Q9967

== ENCOUNTER 2017-03-16 11:20 | Inpatient (IN) | payer OTHER ==
--- NOTE | 2017-03-16 11:44 | EDPHY ---
HPI/HX/ROS/PE/MDM Narrative: CHIEF COMPLAINT: rapid heart rate, confusion HISTORY OF PRESENT ILLNESS: This patient is a 71 year old female s/p AVR on 03/08 discharged yesterday, arriving with her family for evaluation of tachycardia and altered mental status. Patient was at anticoagulation clinic for a INR check. She had an abrupt change of mental status with confusion, inability to remember how she got to the clinic, didn't remember valve replacement. She was noted to be quite tachycardic. Reports a few seconds of diplopia. This has since resolved. Currently she feels well. She denies headache, chest pain, or shortness of breath. Last night, she she reported shortness of breath and felt like she was suffocating. Family member at bedside states she felt very warm to the touch this morning, and the patient took a dose of Tylenol. No chills, vomiting, diarrhea, urinary complaints, headache, lightheadedness. REVIEW OF SYSTEMS: Aside from elements discussed in the HPI, a comprehensive 10-point review of systems was reviewed and is negative. PAST MEDICAL HISTORY: Migraines with aura. Cardiac surgery 03/08/17 for stenotic aortic valve. SOCIAL HISTORY: Family at bedside. VITAL SIGNS: Reviewed by me. HR 145, atrial fibrillation. GENERAL: Well-developed, well-nourished, resting comfortably in no respiratory distress. HEENT: Atraumatic. Eyes: No icterus, no injection. Mouth: moist mucous membranes. No erythema or lesions. Neck: supple with no adenopathy. LUNGS: Clear to auscultation bilaterally, no wheezes, rhonchi or rales. CARDIAC: Irregularly irregular, systolic murmur. ABDOMEN: Soft, nontender, nondistended, bowel sounds normal. BACK: No CVA tenderness. EXTREMITIES: No trauma. No edema. Range of motion is normal throughout. NEURO: Alert and oriented, grossly nonfocal. SKIN: Warm and dry, no rash. PSYCHIATRIC: Normal mentation, no agitation. Portions of this note were transcribed by a director medical surgical. I personally performed a history, physical exam, medical decision making, and confirmed accuracy of information of the transcribed note. ED Course: 71 year old female s/p aortic valve replacement 03/08/17 presents with atrial fibrillation with RVR and dyspnea and brief confusion. Plan for labs including CBC, BMP, PPTT, Troponin. Plan for EKG, chest x-ray, Head CT. The 12 lead EKG was interpreted by myself. See hard copy and/or "tracemaster" electronic copy for interpretation. Atrial fibrillation. Chest x-ray shows bilateral pleural effusions with bilateral lower lobe atelectasis. Seen by Dr Ponce in ED. Will admit for rate control, evaluation of potential fever. Seen by Dr Selby in ED; see his note for information regarding recommended rate contollling medications. 12:48 Spoke with hospitalist service. Dr. Pereira accepts admission to PCU for atrial fibrillation, shortness of breath. 13:[address] Trimble, radiologist. No acute findings on CT head. Patient does have signs of dental caries which may be require prophylaxic meds prior to surgical or dental procedures. MDM: Differential diagnosis for the patient's shortness of breath and tachycardia was considered including but not limited to pulmonary infectious processes, COPD exacerbation, pulmonary emboli, pulmonary edema, congestive heart failure, arrthythmias, and cardiac causes. - Data Points Imaging Results: Imaging Impressions Chest X-Ray 03/16/17 11:41 Impression: Bilateral pleural effusions with bilateral lower lobe atelectasis. Post aortic valve replacement.. Head CT 03/16/17 11:41 Impression: Senescent features, with no acute intracranial abnormality identified on this unenhanced CT evaluation. If there is further clinical concern regarding the patient's symptoms, MR imaging is suggested, if not otherwise contraindicated. Findings were discussed with Yessica Gongora MD at 13:35, on 03/16/2017. Imaging: Discussed imaging studies w/ property caretaker Radiologist, I viewed and interpreted images myself Laboratory Results: Laboratory Results 03/16/17 11:38 03/16/17 11:38 03/16/17 03/16/17 03/16/17 11:38 11:38 11:38 WBC RBC Hgb Hct MCV MCH MCHC RDW Plt Count MPV Neut % (Auto) Lymph % (Auto) [place] % (Auto) Eos % (Auto) Baso % (Auto) Nucleat RBC Rel Count Absolute Neuts (auto) Absolute Lymphs (auto) Absolute Monos (auto) Absolute Eos (auto) Absolute Basos (auto) Absolute Nucleated RBC Immature Gran % Immature Gran # Platelet Estimate PT 21.6 SEC H SEC (12.0-15.0) INR 1.87 H (0.83-1.16) APTT 38.2 SEC H SEC (23.0-38.0) Sodium 139 mEq/L mEq/L (134-144) Potassium 3.8 mEq/L mEq/L (3.5-5.2) Chloride 105 mEq/L mEq/L (97-110) Carbon Dioxide 21 mEq/l L mEq/l (22-31) Anion Gap 13 mEq/L mEq/L (8-16) BUN 12 mg/dL mg/dL (7-23) Creatinine 0.8 mg/dL mg/dL (0.6-1.0) Estimated GFR > 60 Glucose 116 mg/dL H mg/dL (70-100) Calcium 9.1 mg/dL mg/dL (8.5-10.4) Magnesium 1.8 mg/dL mg/dL (1.6-2.3) Troponin I 0.409 ng/mL H ng/mL (0.000-0.034) 03/16/17 11:38 WBC 8.56 10^3/uL 10^3/uL (3.80-9.50) RBC 3.02 10^6/uL L 10^6/uL (4.18-5.33) Hgb 9.3 g/dL L g/dL (12.6-16.3) Hct 29.0 % L % (38.0-47.0) MCV 96.0 fL fL (81.5-99.8) MCH 30.8 pg pg (27.9-34.1) MCHC 32.1 g/dL L g/dL (32.4-36.7) RDW 14.9 % % (11.5-15.2) Plt Count 44 10^3/uL L D 10^3/uL (150-400) MPV 10.1 fL fL (8.7-11.7) Neut % (Auto) 78.3 % H % (39.3-74.2) Lymph % (Auto) 10.0 % L % (15.0-45.0) [place] % (Auto) 8.3 % % (4.5-13.0) Eos % (Auto) 1.9 % % (0.6-7.6) Baso % (Auto) 0.7 % % (0.3-1.7) Nucleat RBC Rel Count 0.0 % % (0.0-0.2) Absolute Neuts (auto) 6.70 10^3/uL H 10^3/uL (1.70-6.50) Absolute Lymphs (auto) 0.86 10^3/uL L 10^3/uL (1.00-3.00) Absolute Monos (auto) 0.71 10^3/uL 10^3/uL (0.30-0.80) Absolute Eos (auto) 0.16 10^3/uL 10^3/uL (0.03-0.40) Absolute Basos (auto) 0.06 10^3/uL 10^3/uL (0.02-0.10) Absolute Nucleated RBC 0.00 10^3/uL 10^3/uL (0-0.01) Immature Gran % 0.8 % % (0.0-1.1) Immature Gran # 0.07 10^3/uL 10^3/uL (0.00-0.10) Platelet Estimate DECREASED L (ADEQ) PT INR APTT Sodium Potassium Chloride Carbon Dioxide Anion Gap BUN Creatinine Estimated GFR Glucose Calcium Magnesium Troponin I Medications Given: Diltiazem HCl (Cardizem Immediate Release) 60 mg PO Q6HRS GRAHAM Stop: 09/12/17 13:44 Last Admin: 03/16/17 14:40 Dose: 60 mg Amiodarone HCl (Amiodarone Hcl) 200 mls @ 33.333 mls/hr IV ONCE ONE Stop: 03/16/17 19:35 Last Admin: 03/16/17 15:29 Dose: 200 mls Discontinued Medications Diltiazem HCl (Cardizem 25 Mg/5 Ml Vial) 10 mg IVP EDNOW ONE Stop: 03/16/17 12:59 Last Admin: 03/16/17 14:08 Dose: Not Given Furosemide (Lasix Injection) 40 mg IVP ONCE ONE Stop: 03/16/17 13:49 Last Admin: 03/16/17 15:29 Dose: 40 mg Diltiazem HCl 125 mg/ Dextrose 125 mls @ 0 mls/hr IV EDNOW ONE; As Directed PRN Reason: Protocol Stop: 03/16/17 12:59 Last Admin: 03/16/17 14:08 Dose: Not Given Amiodarone HCl (Amiodarone Hcl) 100 mls @ 600 mls/hr IV ONCE ONE Stop: 03/16/17 13:45 Last Admin: 03/16/17 14:30 Dose: 100 mls Potassium Chloride (Klor-Con) 40 meq PO ONCE ONE Stop: 03/16/17 13:50 Last Admin: 03/16/17 15:29 Dose: 40 meq General Initial Vital Signs: Initial Vital Signs Temperature (C) 36.7 C 03/16/17 11:35 Heart Rate 166 H 03/16/17 11:35 Respiratory Rate 16 03/16/17 11:35 Blood Pressure 119/105 H 03/16/17 11:35 O2 Sat (%) 90 L 03/16/17 11:35 O2 Delivery Mode Room Air O2 (L/minute) 2 Allergies/Adverse Reactions: ampicillin Allergy (Verified 03/07/17 18:33) Unknown Penicillins Allergy (Verified 03/08/17 15:43) Other-Enter Comments Home Medications: Medication Instructions Recorded Aspirin EC [Aspirin EC 81 mg (*)] 81 mg PO DAILY 03/08/17 Multivitamins [Multivitamin (*)] 1 each PO DAILY #0 03/08/17 Snyder-3 Fatty Acids [Fish Oil 1000 1 cap PO DAILY #0 03/08/17 mg (*)] Amiodarone HCl [Pacerone (*)] 200 mg PO BID #34 tab 03/15/17 Metoprolol Tartrate [Lopressor 50 50 mg PO BID #60 tab 03/15/17 mg (*)] Warfarin Sodium [Coumadin 2.5MG 2.5 mg PO DAILY AT 4PM #50 tab 03/15/17 (*)] traMADol [Ultram 50 mg (*)] 50 mg PO Q8HRS PRN #20 tab 03/15/17 Acetaminophen [Tylenol ES 500 mg 500 - 1,000 mg PO Q6HRS PRN 03/16/17 (*)] Zolpidem Tartrate [Ambien 5MG (*)] 5 mg PO HS PRN 03/16/17 Departure - Departure Disposition: [facility] Acute Clinical Impression: Postoperative atrial fibrillation, Shortness of breath, S/P AVR (aortic valve replacement) Condition: Fair Report Scribed for: Yessica Gongora Report Scribed by: Yaquelin Borrero Date of Report: 03/16/17 Time of Report: 11:44 Physician Review and Approval Statement: Portions of this note were transcribed by a director medical surgical. I personally performed a history, physical exam, medical decision making, and confirmed accuracy of information the transcribed note.
[2017-03-16 11:47] LABS: % IMMATURE GRANULYOCYTES 0.8 % (0.0-1.1); ABSOLUTE IMMATURE GRANULOCYTES 0.07 10^3/uL (0.00-0.10); ADD DIFF? NO; ADD MORPH? NO; ADD SCAN? NO; ATYPICAL LYMPHOCYTE FLAG 40 (0-99); FRAGMENT RBC FLAG 0 (0-99); HEMOGLOBIN 9.3 g/dL (12.6-16.3); LEFT SHIFT FLG 0 (0-99); LIPEMIA HEMOLYSIS FLAG 80 (0-99); MEAN CELL HEMOGLOBIN 30.8 pg (27.9-34.1); MEAN CELL HEMOGLOBIN CONCENTR. 32.1 g/dL (32.4-36.7); MEAN PLATELET VOLUME 10.1 fL (8.7-11.7); PLATELET CLUMPS FLAG 0 (0-99); RED BLOOD CELL COUNT 3.02 10^6/uL (4.18-5.33); RED CELL DISTRIBUTION WIDTH 14.9 % (11.5-15.2)
[2017-03-16 11:50] LABS: PLATELET COUNT 44 10^3/uL (150-400)
[2017-03-16 11:56] LABS: INR 1.87 (0.83-1.16); PROTIME(PATIENT) 21.6 SEC (12.0-15.0)
[2017-03-16 11:57] LABS: APTT 38.2 SEC (23.0-38.0)
[2017-03-16 12:12] LABS: PLATELET ESTIMATE DECREASED (ADEQ)
[2017-03-16] MEDS ORDERED: DILTIAZEM 125 MG in D5W 125 ML IV ONE (12:58)
[2017-03-16] MEDS ORDERED: DILTIAZEM 25 MG/5 ML VIAL IVP ONE (12:58)
[2017-03-16 13:11] LABS: TROPONIN I 0.409 ng/mL (0.000-0.034)
[2017-03-16 13:14] LABS: ANION GAP 13 mEq/L (8-16); CALCIUM 9.1 mg/dL (8.5-10.4); CARBON DIOXIDE 21 mEq/l (22-31); CHLORIDE 105 mEq/L (97-110); CREATININE 0.8 mg/dL (0.6-1.0); GLOMERULAR FILTRATION RATE > 60; GLUCOSE 116 mg/dL (70-100); POTASSIUM 3.8 mEq/L (3.5-5.2); SODIUM 139 mEq/L (134-144)
[2017-03-16] MEDS ORDERED: ONDANSETRON 4 MG/2 ML VIAL IVP PRN (13:32)
[2017-03-16] MEDS ORDERED: ONDANSETRON DISINTEGRATING 4 MG TAB PO PRN (13:32)
[2017-03-16] MEDS ORDERED: AMIODARONE HCL 200 ML IV ONE (13:36)
[2017-03-16] MEDS ORDERED: AMIODARONE HCL 100 ML IV ONE (13:36)
--- NOTE | 2017-03-16 13:42 | PDCARCONS ---
Cardiology Consult Reason for Consult: Control of atrial fibrillation Chief Complaint: Fatigue Requesting Physician: Kris History of Present Illness: 71-year-old female 6 days status post aortic valve replacement complicated by atrial fibrillation. Patient was recovering at home. She has had 2 days of significant fatigue. Last night she had paroxysmal nocturnal dyspnea with 3 pillow orthopnea. She had some change in consciousness and during her INR check was referred to the emergency department. By the time she arrived there she was mentally clear. She has found be in atrial fibrillation with rapid ventricular response and I am asked to manage her. She has been on amiodarone 200 mg twice daily. She has been on metoprolol 50 mg twice daily for rate control. This has been difficult since her operation. Patient has very mild palpitations. She has no chest pain. She has had mild PND and orthopnea as described above. She has had no syncope or near syncope. She has been able to walk at home. Patient has had mild chills without fever. She has no appetite with a bad taste in her mouth. She has had significant diarrhea. Patient denies cough, hemoptysis. She has been having difficulty sleeping. History Information - Allergies/Home Medication List Allergies/Adverse Reactions: ampicillin Allergy (Verified 03/07/17 18:33) Unknown Penicillins Allergy (Verified 03/08/17 15:43) Other-Enter Comments Home Medications: Aspirin EC [Aspirin EC 81 mg (*)] 81 mg PO DAILY 03/08/17 [Last Taken 3 Days Ago ~03/05/17] Herbals/Supplements -Info Only 1 ea PO DAILY 03/08/17 [Last Taken 3 Days Ago ~] Multivitamins [Multivitamin (*)] 1 each PO DAILY #0 03/08/17 [Last Taken 3 Days Ago ~03/05/17] Eldred-3 Fatty Acids [Fish Oil 1000 mg (*)] 1 cap PO DAILY #0 03/08/17 [Last Taken 3 Days Ago ~03/05/17] Zolpidem Tartrate [Ambien] 5 mg PO DAILY PRN 03/08/17 [Last Taken Unknown] I have personally reviewed and updated: family history, medical history, social history Past Medical History: - Past Medical History atrial fibrillation Additional medical history: Aortic stenosis with LVH - Surgical History Additional surgical history: Aortic valve replacement - Social History Smoking Status: Never smoked AGATA Risk Evaluation greater or equal to 3 CAD risk factors: no known CAD(stenosis greater or eqaul to 50%): no Age in Years: 65-74 Sex: Female Congestive Heart Failure History: No Hypertension History: Yes Stroke/TIA/Thromboembolism History: No Vascular Disease History: No Diabetes Mellitus: No [id number] Score: 5y Physical Exam Physical Exam: Temp Pulse Resp BP Pulse Ox 36.7 C 166 H 16 119/105 H 90 L 03/16/17 11:35 03/16/17 11:35 03/16/17 11:35 03/16/17 11:35 03/16/17 11:35 Constitutional: chronically ill appearing Eyes: anicteric sclera, pale conjunctiva Ears, Nose, Mouth, Throat: dry mucous membranes Cardiovascular: systolic murmur, tachycardia, No JVD Peripheral Pulses: 1+: carotid (R), carotid (L), femoral (R), femoral (L) Respiratory: other (Decrease breath sounds right greater than left. No rales.) Gastrointestinal: normoactive bowel sounds, soft, non-tender abdomen, no palpable masses, No tenderness, No ascites, No hepatosplenomegally, No guarding Genitourinary: no bladder fullness, no bladder tenderness Skin: warm Musculoskeletal: full muscle strength, no muscle tenderness Neurologic: AAOx3, sensation intact bilaterally, CN II-XII Intact, No weakness, No facial droop Psychiatric: interacting appropriately, not anxious, not encephalopathic Lymph, Heme, Immunologic: no cervical LAD, no supraclavicular LAD Lab and Imaging 03/16/17 11:38 03/16/17 11:38 WBC 8.56 10^3/uL (3.80-9.50) 03/16/17 11:38 RBC 3.02 10^6/uL (4.18-5.33) L 03/16/17 11:38 Hgb 9.3 g/dL (12.6-16.3) L 03/16/17 11:38 Hct 29.0 % (38.0-47.0) L 03/16/17 11:38 MCV 96.0 fL (81.5-99.8) 03/16/17 11:38 MCH 30.8 pg (27.9-34.1) 03/16/17 11:38 MCHC 32.1 g/dL (32.4-36.7) L 03/16/17 11:38 RDW 14.9 % (11.5-15.2) 03/16/17 11:38 Plt Count 44 10^3/uL (150-400) L D 03/16/17 11:38 MPV 10.1 fL (8.7-11.7) 03/16/17 11:38 Neut % (Auto) 78.3 % (39.3-74.2) H 03/16/17 11:38 Lymph % (Auto) 10.0 % (15.0-45.0) L 03/16/17 11:38 [place] % (Auto) 8.3 % (4.5-13.0) 03/16/17 11:38 Eos % (Auto) 1.9 % (0.6-7.6) 03/16/17 11:38 Baso % (Auto) 0.7 % (0.3-1.7) 03/16/17 11:38 Nucleat RBC Rel Count 0.0 % (0.0-0.2) 03/16/17 11:38 Absolute Neuts (auto) 6.70 10^3/uL (1.70-6.50) H 03/16/17 11:38 Absolute Lymphs (auto) 0.86 10^3/uL (1.00-3.00) L 03/16/17 11:38 Absolute Monos (auto) 0.71 10^3/uL (0.30-0.80) 03/16/17 11:38 Absolute Eos (auto) 0.16 10^3/uL (0.03-0.40) 03/16/17 11:38 Absolute Basos (auto) 0.06 10^3/uL (0.02-0.10) 03/16/17 11:38 Absolute Nucleated RBC 0.00 10^3/uL (0-0.01) 03/16/17 11:38 Immature Gran % 0.8 % (0.0-1.1) 03/16/17 11:38 Immature Gran # 0.07 10^3/uL (0.00-0.10) 03/16/17 11:38 Platelet Estimate DECREASED (ADEQ) L 03/16/17 11:38 PT 21.6 SEC (12.0-15.0) H 03/16/17 11:38 INR 1.87 (0.83-1.16) H 03/16/17 11:38 APTT 38.2 SEC (23.0-38.0) H 03/16/17 11:38 Sodium 139 mEq/L (134-144) 03/16/17 11:38 Potassium 3.8 mEq/L (3.5-5.2) 03/16/17 11:38 Chloride 105 mEq/L (97-110) 03/16/17 11:38 Carbon Dioxide 21 mEq/l (22-31) L 03/16/17 11:38 Anion Gap 13 mEq/L (8-16) 03/16/17 11:38 BUN 12 mg/dL (7-23) 03/16/17 11:38 Creatinine 0.8 mg/dL (0.6-1.0) 03/16/17 11:38 Estimated GFR > 60 03/16/17 11:38 Glucose 116 mg/dL (70-100) H 03/16/17 11:38 Calcium 9.1 mg/dL (8.5-10.4) 03/16/17 11:38 Troponin I 0.409 ng/mL (0.000-0.034) H 03/16/17 11:38 Visualized and Interpreted Chest x-ray results: Yes A/P Assessment: Discussion: 71-year-old female 6 days post aortic valve replacement now with atrial fibrillation and rapid ventricular response. Will plan for rate control with oral diltiazem and metoprolol. Plan for complete loading with amiodarone IV another gram today. Considerations for cardioversion in the morning if not rate controlled and feeling better. Limited echocardiogram today force assessment of aortic valve replacement and pericardial effusion. Continued aggressive rehabilitation with clinical follow-up. Continue chronic anticoagulation. Plan: Oral diltiazem. Oral metoprolol. IV amiodarone. Limited echocardiogram. Continued cardiac rehabilitation postop. Continue chronic anticoagulation. Review of Systems Review of Systems: - Review of Systems Constitutional: chills, fever, weakness EENTM: blurred vision, double vision Respiratory: orthopnea, shortness of breath Cardiac: edema, irregular heart rate, lightheadedness, palpitations. denies: chest pain, syncope Gastrointestinal/Abdominal: diarrhea. denies: abdominal pain, constipation Genitourinary: no symptoms Musculoskelatal: denies: back pain Skin: denies: rash Neurological: anxiety Hematologic/Lymphatic: denies: easy bleeding, easy bruising Immunologic/allergic: no symptoms reported
[2017-03-16] MEDS ORDERED: FUROSEMIDE 40 MG/4 ML VIAL IVP ONE (13:48)
[2017-03-16] MEDS ORDERED: POTASSIUM CL 20 MEQ TAB PO ONE (13:49)
[2017-03-16] MEDS ORDERED: AMIODARONE HCL 150 MG/3 ML VIAL ONE (14:22)
[2017-03-16] MEDS ORDERED: AMIODARONE HCL 150 MG/100 ML BAG (1.5 MG/ML) IV ONE (14:22)
[2017-03-16] MEDS: DILTIAZEM 60 MG TAB PO SCH ×2 (14:40→17:53)
[2017-03-16] MEDS ORDERED: traMADol 50 MG TAB PO PRN (16:51)
[2017-03-16] MEDS ORDERED: ZOLPIDEM TARTRATE 5 MG TAB PO PRN (16:51)
--- NOTE | 2017-03-16 17:04 | ECHO ---
[id number] + + [id number] : : [place] [address] : : [phone] + Adult Echocardiographic Report + --+ :Name: PATRICK GAUTHIERDanny Date: 03/16/2017 02:15 PM BP: 96/50 mmHg : : Hospital Admission Number: [id number] Location: 4: :: 1945 Gender: Female : :Age: 71 yrs Race: WH : :Reason For Study: evaluate for effusion and AVR fx : :History: s/p AVR and Ao root : + --+ Doppler Measurements & Calculations Ao V2 max: 250.0 cm/sec LV V1 max: 157.0 cm/sec Ao max P.3 mmHg LV V1 max P.9 mmHg Ao mean P.0 mmHg LV V1 mean P.0 mmHg Ao V2 mean: 145.0 cm/sec LV V1 mean: 97.3 cm/sec Ao V2 VTI: 31.5 cm LV V1 VTI: 22.6 cm Left Ventricle The left ventricular cavity is small. There is moderate to severe concentric left ventricular hypertrophy. Left ventricular systolic function is normal. Aortic Valve Mild to moderate aortic regurgitation. There is a bioprosthetic aortic valve. The gradient is normal for this prosthetic aortic valve. Pericardium/Pleural Small pericardial effusion. There is a large pleural effusion. Conclusion Limited echocardiogram to evaluate for pericardial effusion and evaluate AVR. Patient's rhythm is rapid atrial fibrillation. The rhytm is atrial fibrillation. The left ventricular cavity is small. There is moderate to severe concentric left ventricular hypertrophy. Left ventricular systolic function is normal. There is a bioprosthetic aortic valve. The gradient is normal for this prosthetic aortic valve. Small pericardial effusion. There is a large pleural effusion. Mild to moderate aortic regurgitation. Final Reading Physician: Liz Lewis signed on 03/16/2017 05:03 PM Ordering Physician: KOBY BENITEZ Performed By: Dianne Amador
--- NOTE | 2017-03-16 17:31 | GHP ---
[f rep st] HISTORY AND PHYSICAL DATE OF ADMISSION: 03/16/2017 HISTORY OF PRESENT ILLNESS: The patient is a pleasant 71-year-old female, who was just discharged fr om the hospital yesterday following an aortic valve replacement. She did not have bypass at that [facility]. Her postoperative course was complicated by postoperative atrial fibrillation, and she was starte d on amiodarone and metoprolol. She was discharged home yesterday. She was getting an INR check today, felt a little bit lightheaded and dizzy, and had what appeared to be a presyncopal episode. She has also had fatigue. She has had PND and orthopnea, lower extremity edema. She noted a 20-poun d weight gain from admission to discharge from the hospital. She has had some palpitations. She has not had chest pain. She has not had dyspnea other than ortho pnea. REVIEW OF SYSTEMS: Complete 10-point review of systems conducted and negative except as noted in the HPI. PAST MEDICAL HISTORY: Aortic stenosis. ALLERGIES: Ampicillin and penicillin. HOME MEDICATIONS: Aspirin, Tylenol, amiodarone, metoprolol, multivitamin, warfarin, fish oil, tramad ol, and Ambien. SOCIAL HISTORY: Lives in [place], originally from [place]. Has not drunk alcohol in 3 decades. FAMILY HISTORY: Parents . PHYSICAL EXAMINATION: VITAL SIGNS: Temp 36.7, blood pressure 119/105, pulse 166, now 110, breathing 16 times a minute, 98% on room air. GENERAL: No acute distress. HEENT: Sclerae anicteric. Oroph arynx clear. Mucous membranes are moist. NECK: Supple. No lymphadenopathy or JVD. LUNGS: Clear to auscultation anterolaterally. CHEST: Her midline incision is clean, dry, intact. HEART: Irregu larly irregular and tachycardic. ABDOMEN: Soft, nontender, nondistended. EXTREMITIES: There is 1+ lower extremity edema bilaterally. Calves are nontender. SKIN: Without rash. NEUROLOGIC: Nonfoc al. LABORATORY: White count is 8.56, hematocrit 29, which is about her discharge hematocrit, platelets a re 44 on admission. The thrombocytopenia is not new, but this is more severe than it has been. INR is 1.87. Sodium 139, potassium 3.8, chloride 105, bicarb 21, BUN 12, creatinine 0.8, glucose 116. T roponin is 0.49. It was 0.452 when last checked, which was on March 08. IMAGING: Chest x-ray, interpreted by me, shows evidence of midline sternotomy, aortic valve replacem ent, small bilateral pleural effusions. Head CT shows no acute intracranial abnormality. I discusse d the case Dr. Alberts, and he . ASSESSMENT AND PLAN: A 71-year-old female, who presents with a vagal episode with rapid atrial fibri llation and congestive heart failure. 1. Congestive heart failure. This is likely volume overload, following surgery, as opposed to leonie congestive heart failure. Agree with diuresis. There may be a component of diastolic dysfunction w ith a rapid heart rate. 2. Atrial fibrillation. This is rapid. She has been started on diltiazem, amiodarone, and continue her beta arash. Will follow. 3. Thrombocytopenia. This is worse. She is at risk for heparin-induced thrombocytopenia. Will rep eat it in the morning. There is no active bleeding. 4. Pain. We will continue with Tylenol and tramadol. 5. Anemia. This is postoperative anemia, secondary to blood loss. We will follow. 6. Elevated troponin. One would have expected it to decrease further following her surgery last dina cked. Will repeat it in the morning. DISPOSITION: Inpatient status. /[id number]/MODL
[2017-03-16] MEDS: METOPROLOL TARTRATE 50 MG TAB PO SCH (19:29)
[2017-03-16] MEDS: ACETAMINOPHEN 325 MG TAB PO PRN (19:30)
[2017-03-16] MEDS ORDERED: AMIODARONE HCL 540 MG in D5W 300 ML IV ONE (21:30)
[2017-03-16] MEDS ORDERED: NS 500 ML IV ONE (22:55)
--- NOTE | 2017-03-16 23:04 | HOSPPROG ---
Hospitalist Progress Note Assessment/Plan: Prolonged service, direct patient care in addition to the time originally spent by Dr. Sharfi on his H&P, bedside and [id number] w/ patient for 31 minutes (10 :10 - 10:41 p.m.), addressing the following: - RN noted patient more confused, disoriented, poor short-term memory, in setting of SBP 85 and HR 50 - Dr. Khoury was notified by RN, and he requested hospitalist evaluate the patient - patient had chemically cardioverted from Afib RVR to sinus alayna s/p dilt 60, metop 50, and amio gtt - evaluated patient, she is AAOx2 (person and place), has insight, CN II-XII intact, motor 5/5 bilat UE/LE, breath sounds diminished in the bases but otherwise clear, heart rhythm regular w/ II/ systolic at LSB, denies dysuria, has had UOP since receiving lasix - most likely cause of acute encephalopathy is cerebralvascular hypoperfusion in setting of hypotension - will give back 500cc NS bolus, stop amio gtt, and reduce dilt dosing to 30mg q6h, cont metop at 50mg bid - will also order neuro checks, albeit her current neuro exam is unremarkable outside of the cog changes, and it is unlikely that she has thrown a left atrial clot, although it is theoretically possible in setting of chemical cardioversion and subtherapeutic INR - will hold on further neuro-imaging at this time, as originally HCT normal, and also hold on bridging therapy, as empiric bridging would carry high hemorrhagic conversion risk if there actually had already been cardioemboli Objective: Vital Signs Temp Pulse Resp BP Pulse Ox 36.7 C 100 16 99/55 L 90 L 03/16/17 20:00 03/16/17 20:00 03/16/17 20:00 03/16/17 20:00 03/16/17 20:00 03/15/17 03/16/17 03/17/17 05:59 05:59 05:59 Intake Total 250 Balance 250 PT 21.6 SEC (12.0-15.0) H 03/16/17 11:38 INR 1.87 (0.83-1.16) H 03/16/17 11:38 ICD10 Worksheet Patient Problems: Problems Problem Status Onset Shortness of breath Acute Postoperative atrial fibrillation Acute S/P aneurysm repair Acute S/P AVR (aortic valve replacement) Acute Coronary artery disease Chronic Aortic valve stenosis Chronic
[2017-03-16 23:11] LABS: COLOR YELLOW; LEUKOCYTE ESTERASE,URINE TRACE (NEGATIVE); NITRITE,URINE NEGATIVE (NEGATIVE)
[2017-03-16 23:19] LABS: BACTERIA TRACE /hpf (NONE SEEN); HYALINE CASTS 25-50 /lpf (0-1); MUCUS TRACE /lpf (NONE-1+)
[2017-03-17] MEDS: DILTIAZEM 30 MG TAB PO SCH ×4 (00:06→17:47)
[2017-03-17] MEDS: ZOLPIDEM TARTRATE 5 MG TAB PO PRN ×2 (00:25→21:24)
[2017-03-17 05:03] LABS: % IMMATURE GRANULYOCYTES 0.6 % (0.0-1.1); ABSOLUTE IMMATURE GRANULOCYTES 0.05 10^3/uL (0.00-0.10); ADD DIFF? NO; ADD MORPH? NO; ADD SCAN? NO; ATYPICAL LYMPHOCYTE FLAG 70 (0-99); FRAGMENT RBC FLAG 0 (0-99); HEMATOCRIT 25.9 % (38.0-47.0); HEMOGLOBIN 8.2 g/dL (12.6-16.3); LEFT SHIFT FLG 0 (0-99); LIPEMIA HEMOLYSIS FLAG 80 (0-99); MEAN CELL HEMOGLOBIN 30.7 pg (27.9-34.1); MEAN CELL HEMOGLOBIN CONCENTR. 31.7 g/dL (32.4-36.7); MEAN PLATELET VOLUME 11.1 fL (8.7-11.7); PLATELET CLUMPS FLAG 0 (0-99); RED BLOOD CELL COUNT 2.67 10^6/uL (4.18-5.33); RED CELL DISTRIBUTION WIDTH 15.1 % (11.5-15.2)
[2017-03-17 05:04] LABS: PLATELET COUNT 41 10^3/uL (150-400)
[2017-03-17 05:17] LABS: INR 1.87 (0.83-1.16); PROTIME(PATIENT) 21.6 SEC (12.0-15.0)
[2017-03-17 05:18] LABS: APTT 36.5 SEC (23.0-38.0)
[2017-03-17 05:22] LABS: ANION GAP 7 mEq/L (8-16); CALCIUM 8.7 mg/dL (8.5-10.4); CARBON DIOXIDE 25 mEq/l (22-31); CHLORIDE 105 mEq/L (97-110); CREATININE 0.9 mg/dL (0.6-1.0); GLOMERULAR FILTRATION RATE > 60; GLUCOSE 100 mg/dL (70-100); POTASSIUM 4.5 mEq/L (3.5-5.2); SODIUM 137 mEq/L (134-144)
[2017-03-17 05:30] LABS: TROPONIN I 0.508 ng/mL (0.000-0.034)
[2017-03-17 05:37] LABS: PLATELET ESTIMATE DECREASED (ADEQ)
[2017-03-17] MEDS ORDERED: FUROSEMIDE 40 MG/4 ML VIAL IVP ONE ×2 (07:34→16:25)
--- NOTE | 2017-03-17 08:44 | SOAPPROG ---
SOAP Progress Note Assessment/Plan: Assessment: 1. s/p AVR with AI 2. Atrial fibrillation post op. Now in SR 3. Intermittent encephalopathy 4. Thrombocytopenia query valve related versus heparin? 5. Orthopnea with pleural effusion. Procedure: Limited Echo 03/16/2017 03/17/17 08:39 Impression: Day#1. Cardioverted overnight. Limited echo revealed moderate to severe AI. Exam this am with clear, loud diastolic blow. Episode last night of confusion resolved with fluids. Persistent orthopnea remains, Plan: Repeat limited echo this am. Discuss with Dr. Ponce. May need repair. Began discussion with patient. Transition to oral medications for afib rate/rhythm control. Consider thoracentesis for persistent orthopnea. Rehabilitation. Subjective: Feeling a bit better. Orthopnea. No chest pain, No palpitations or syncope. Objective: Medications Generic Name Dose Route Start Last Admin Trade Name Freq PRN Reason Stop Dose Admin Warfarin Sodium 1 ea 03/17/17 15:00 Message-Coumadin Daily Order [facility] 09/13/17 14:59 DAILY@1500 [facility] Warfarin Sodium 1 each 03/16/17 13:45 Warfarin Pharmacy To Dose [facility] 09/12/17 13:44 AD [facility] Protocol Aspirin 81 mg 03/17/17 09:00 Aspirin PO 09/13/17 08:59 DAILY [facility] Diltiazem HCl 30 mg 03/16/17 22:55 03/17/17 00:25 Cardizem Immediate Release PO 09/12/17 13:44 30 mg Q6HRS [facility] Metoprolol Tartrate 50 mg 03/16/17 21:00 03/16/17 19:29 Lopressor PO 09/12/17 20:59 50 mg BID [facility] Vital Signs Temp Pulse Resp BP Pulse Ox 36.7 C 71 11 L 146/80 H 90 L 03/17/17 07:23 03/17/17 07:23 03/17/17 07:23 03/17/17 07:23 03/17/17 07:23 Laboratory Results 03/17/17 03:26 03/17/17 03:26 03/16/17 03/17/17 03/18/17 05:59 05:59 05:59 Intake Total 490 Output Total 200 300 Balance 290 -300 PT 21.6 SEC (12.0-15.0) H 03/17/17 03:26 INR 1.87 (0.83-1.16) H 03/17/17 03:26 Echo revealed moderate to severe AI with eccentric jet. Pleural effusion with normal LV Physical Exam - Physical Exam General Appearance: no apparent distress EENT: pale conjunctiva (R), pale conjunctiva (L), No scleral icterus (L) Neck: full range of motion Respiratory: other (decreased breath sounds right greater than L) Cardiac/Chest: regular rate, rhythm, edema, diastolic murmur, No JVD Peripheral Pulses: 1+: carotid (R), carotid (L), femoral (R), femoral (L) Abdomen: normal bowel sounds, non-tender, soft Back: Normal inspection Skin: warm/dry, No rash Lymphatic: no adenopathy Extremities: non-tender, pedal edema, No calf tenderness Neuro/Psych: alert, normal mood/affect, oriented x 3 ICD10 Worksheet Patient Problems: Problems Problem Status Onset Shortness of breath Acute Postoperative atrial fibrillation Acute S/P aneurysm repair Acute S/P AVR (aortic valve replacement) Acute Coronary artery disease Chronic Aortic valve stenosis Chronic Review of Systems - Review of Systems Constitutional: denies: chills, fever EENTM: no symptoms reported Respiratory: orthopnea. denies: cough Cardiac: no symptoms reported Gastrointestinal/Abdominal: no symptoms reported, diarrhea. denies: abdominal pain, abdominal distention Genitourinary: no symptoms Musculoskelatal: no symptoms Skin: no symptoms Neurological: depressed Hematologic/Lymphatic: no symptoms reported Immunologic/allergic: no symptoms reported
[2017-03-17] MEDS: OMEGA-3 FATTY ACIDS 1,000 MG CAP PO SCH ×2 (09:10→09:12)
[2017-03-17] MEDS: ASPIRIN 81 MG CHEWABLE TAB PO SCH (09:10)
[2017-03-17] MEDS: METOPROLOL TARTRATE 50 MG TAB PO SCH ×2 (09:10→21:25)
[2017-03-17] MEDS: AMIODARONE HCL 200 MG TAB PO SCH (09:19)
--- NOTE | 2017-03-17 11:09 | HOSPPROG ---
Hospitalist Progress Note Assessment/Plan: 71 yo F w recent AVR (dc'd 03/15) admitted w rapid AF and now w AI AI: seen on echo julio and kaushik to discuss eve for reoperation AF: likely caused by above as well as recent cardiac surgery has converted encephalopathy: confused overnight alert this AM attributable to multiple meds and CHF thropmbocytopenia: check HIT Ab follow daily pleural effusions: moerate by cxr (inter by me) hold on thoracentesis dispo: inpt Subjective: case d/w dr kim. tele: sinus Objective: Vital Signs Temp Pulse Resp BP Pulse Ox 36.7 C 71 11 L 146/80 H 90 L 03/17/17 07:23 03/17/17 07:23 03/17/17 07:23 03/17/17 07:23 03/17/17 07:23 Laboratory Results 03/17/17 03:26 03/17/17 03:26 03/16/17 03/17/17 03/18/17 05:59 05:59 05:59 Intake Total 490 Output Total 200 300 Balance 290 -300 PT 21.6 SEC (12.0-15.0) H 03/17/17 03:26 INR 1.87 (0.83-1.16) H 03/17/17 03:26 - Physical Exam Constitutional: no apparent distress, appears nourished Eyes: PERRL, anicteric sclera Ears, Nose, Mouth, Throat: moist mucous membranes, hearing normal Cardiovascular: regular rate and rhythym, diastolic murmur Respiratory: no respiratory distress, other (basilar crackles) Gastrointestinal: normoactive bowel sounds, soft, non-tender abdomen Genitourinary: no bladder fullness, No louis in urethra Skin: warm, normal color Musculoskeletal: full muscle strength, no muscle tenderness Neurologic: AAOx3 ICD10 Worksheet Patient Problems: Problems Problem Status Onset Postoperative atrial fibrillation Acute Shortness of breath Acute S/P AVR (aortic valve replacement) Acute S/P aneurysm repair Acute Aortic valve stenosis Chronic Coronary artery disease Chronic
--- NOTE | 2017-03-17 11:59 | ECHO ---
[id number] + + [address] : : [place] [address] : : [phone] + Adult Echocardiographic Report + -+ :Name: DISHAHusam Date: 03/17/2017 10:52 AM BP: 146/80 mmHg : : Hospital Admission Number: [id number] Location: 20 1: :: 1945 Gender: Female : :Age: 71 yrs Race: WH : :Reason For Study: re-evaluate AVR and AI : :History: s/p AVR : + -+ Doppler Measurements & Calculations Ao V2 max: 234.8 cm/sec AI max sandra: 263.6 cm/sec TR max sandra: 253.1 cm/sec Ao max P.1 mmHg AI max P.0 mmHg TR max P.6 mmHg Ao mean P.9 mmHg Ao V2 mean: 166.5 cm/secAI dec slope: 254.0 cm/sec2 Ao V2 VTI: 47.5 cm AI P1/2t: 304.0 msec Left Ventricle The left ventricle is normal in size and function. Mitral Valve The mitral valve is normal in structure and function. There is moderate mitral regurgitation. Aortic Valve Severe aortic regurgitation. There is a bioprosthetic aortic valve. Pericardium/Pleural trivial pericardial effusion. There is a large pleural effusion. Conclusion Limited echocardiogram to re-evaluate AVR and AI. Patient now normal sinus rhthym. The left ventricle is normal in size and function. There is moderate mitral regurgitation. There is a bioprosthetic aortic valve. Severe aortic regurgitation. trivial pericardial effusion. There is a large pleural effusion. Final Reading Physician: Liz Garsia signed on 03/17/2017 11:58 AM Ordering Physician: KOBY BENITEZ Performed By: Dianne Amador
[2017-03-17] MEDS ORDERED: WARFARIN SODIUM 5 MG TAB PO ONE (16:00)
[2017-03-17] MEDS ORDERED: PHYTONADIONE 2.5 MG/2.5 ML ORAL UDL PO ONE (16:26)
--- NOTE | 2017-03-17 16:36 | SOAPPROG ---
LAMBERT Progress Note Assessment/Plan: Assessment: Plan: 03/17/17 16:32 45 min f/f pt and family counseling pt w new severe paravalvular leak after recent AVR/ascending, not present intraop or post op echo heavily calcified and debrided at surgery , may be a technical issue will redo once coumadin corrects, should repair mitral w ring only as well to avoid future issues platelets decreased due to paravalvular issue, were ok after initial surgery begin reversing INR for OR Monday Objective: Vital Signs Temp Pulse Resp BP Pulse Ox 36.2 C 67 19 125/56 H 93 03/17/17 11:43 03/17/17 11:43 03/17/17 11:43 03/17/17 11:43 03/17/17 11:43 PT 21.6 SEC (12.0-15.0) H 03/17/17 03:26 INR 1.87 (0.83-1.16) H 03/17/17 03:26 ICD10 Worksheet Patient Problems: Problems Problem Status Onset Postoperative atrial fibrillation Acute Shortness of breath Acute S/P AVR (aortic valve replacement) Acute S/P aneurysm repair Acute Aortic valve stenosis Chronic Coronary artery disease Chronic
[2017-03-17] MEDS ORDERED: ACETAMN/DIPHENHYDRAMINE 500/25MG TAB PO PRN (21:05)
[2017-03-17] MEDS: ACETAMINOPHEN 325 MG TAB PO PRN (21:25)
[2017-03-18] MEDS: DILTIAZEM 30 MG TAB PO SCH ×3 (00:12→16:24)
[2017-03-18] MEDS ORDERED: AMIODARONE A.FIB-6HR INFSN (ORDER 2/3) IV ONE (03:00)
[2017-03-18] MEDS ORDERED: AMIODARONE HCL 100 ML IV ONE (03:00)
[2017-03-18] MEDS: ACETAMINOPHEN 325 MG TAB PO PRN (04:04)
[2017-03-18 04:18] LABS: ALANINE AMINOTRANSFERASE 62 IU/L (9-52); ALBUMIN 3.3 g/dL (3.5-5.0); ALKALINE PHOSPHATASE 66 IU/L (38-126); ANION GAP 11 mEq/L (8-16); ASPARTATE AMINOTRANSFERASE 44 IU/L (14-46); BILIRUBIN,TOTAL 0.9 mg/dL (0.1-1.4); CALCIUM 8.3 mg/dL (8.5-10.4); CARBON DIOXIDE 24 mEq/l (22-31); CHLORIDE 103 mEq/L (97-110); CREATININE 0.9 mg/dL (0.6-1.0); GLOMERULAR FILTRATION RATE > 60; GLUCOSE 105 mg/dL (70-100); SODIUM 138 mEq/L (134-144); TOTAL PROTEIN 5.4 g/dL (6.3-8.2)
[2017-03-18 04:25] LABS: INR 1.37 (0.83-1.16); PROTIME(PATIENT) 16.9 SEC (12.0-15.0)
[2017-03-18] MEDS ORDERED: POTASSIUM CL 20 MEQ/15 ML UDCUP ONE (05:37)
[2017-03-18] MEDS: POTASSIUM CL 20 MEQ/15 ML UDCUP PO SCH ×2 (06:14→16:25)
[2017-03-18] MEDS ORDERED: PHYTONADIONE 5 MG in NS 50 ML IV ONE (08:12)
[2017-03-18] MEDS: AMIODARONE HCL 200 MG TAB PO SCH (08:21)
[2017-03-18] MEDS: ASPIRIN 81 MG CHEWABLE TAB PO SCH (08:21)
[2017-03-18] MEDS: METOPROLOL TARTRATE 50 MG TAB PO SCH (08:21)
[2017-03-18] MEDS: OMEGA-3 FATTY ACIDS 1,000 MG CAP PO SCH (08:21)
[2017-03-18 08:27] LABS: % IMMATURE GRANULYOCYTES 0.8 % (0.0-1.1); ABSOLUTE IMMATURE GRANULOCYTES 0.07 10^3/uL (0.00-0.10); ADD DIFF? NO; ADD MORPH? NO; ADD SCAN? NO; ATYPICAL LYMPHOCYTE FLAG 30 (0-99); FRAGMENT RBC FLAG 0 (0-99); HEMATOCRIT 25.4 % (38.0-47.0); HEMOGLOBIN 8.4 g/dL (12.6-16.3); LEFT SHIFT FLG 0 (0-99); LIPEMIA HEMOLYSIS FLAG 80 (0-99); MEAN CELL HEMOGLOBIN 31.5 pg (27.9-34.1); MEAN CELL HEMOGLOBIN CONCENTR. 33.1 g/dL (32.4-36.7); MEAN CELL VOLUME 95.1 fL (81.5-99.8); MEAN PLATELET VOLUME 11.3 fL (8.7-11.7); PLATELET CLUMPS FLAG 0 (0-99); RED BLOOD CELL COUNT 2.67 10^6/uL (4.18-5.33); RED CELL DISTRIBUTION WIDTH 15.1 % (11.5-15.2)
[2017-03-18 08:44] LABS: PLATELET COUNT 34 10^3/uL (150-400)
[2017-03-18 08:57] LABS: PLATELET ESTIMATE DECREASED (ADEQ)
--- NOTE | 2017-03-18 09:25 | HOSPPROG ---
Hospitalist Progress Note Assessment/Plan: 71 yo F w recent AVR (dc'd 03/15) admitted w rapid AF and now w AI AI: seen on echo redo today AF: likely caused by above as well as recent cardiac surgery has converted encephalopathy: not confused this AM thrombocytopenia: check HIT Ab follow daily pleural effusions: moerate by cxr (inter by me) hold on thoracentesis dispo: inpt Subjective: case d/w dr faulkner. valve redo. tachycardic overnight Objective: Vital Signs Temp Pulse Resp BP Pulse Ox 36.4 C 125 H 20 103/82 H 90 L 03/18/17 08:35 03/18/17 08:35 03/18/17 08:35 03/18/17 08:35 03/18/17 08:35 Laboratory Results 03/18/17 08:00 03/18/17 03:50 03/17/17 03/18/17 03/19/17 05:59 05:59 05:59 Intake Total 700 Balance 700 PT 16.9 SEC (12.0-15.0) H 03/18/17 03:50 INR 1.37 (0.83-1.16) H 03/18/17 03:50 - Physical Exam Constitutional: no apparent distress, appears nourished Eyes: PERRL, anicteric sclera Ears, Nose, Mouth, Throat: moist mucous membranes, hearing normal Cardiovascular: diastolic murmur, JVD, tachycardia Respiratory: no respiratory distress, no rales or rhonchi Gastrointestinal: normoactive bowel sounds, soft, non-tender abdomen Genitourinary: no bladder fullness, No louis in urethra Skin: warm, normal color Musculoskeletal: full muscle strength, no muscle tenderness Neurologic: AAOx3, sensation intact bilaterally Psychiatric: interacting appropriately ICD10 Worksheet Patient Problems: Problems Problem Status Onset Postoperative atrial fibrillation Acute Shortness of breath Acute S/P AVR (aortic valve replacement) Acute S/P aneurysm repair Acute Aortic valve stenosis Chronic Coronary artery disease Chronic
[2017-03-18] MEDS ORDERED: MINERAL OIL 10 ML VIAL ONE ×2 (09:54→12:00)
[2017-03-18] MEDS ORDERED: PROTAMINE SULFATE 50 MG/5 ML VIAL IVP ONE (09:55)
[2017-03-18] MEDS ORDERED: MILRINONE/DEXTROSE/100 ML BAG IV ONE (09:56)
[2017-03-18] MEDS ORDERED: POTASSIUM Cl (KCl) 20 MEQ/50 ML BAG IV ONE (09:56)
[2017-03-18] MEDS ORDERED: AMINOCAPROIC ACID 5 GM/20 ML VIAL ONE ×2 (09:56→10:00)
[2017-03-18] MEDS ORDERED: CALCIUM CHLORIDE 1 GM/10 ML INJ ONE ×3 (09:56→10:00)
[2017-03-18] MEDS ORDERED: AMIODARONE HCL 150 MG/3 ML VIAL ONE ×2 (09:57→10:01)
[2017-03-18] MEDS ORDERED: DOPamine/DEXTROSE/250 ML BAG IV ONE (09:57)
[2017-03-18] MEDS ORDERED: ADENOSINE 6 MG/2 ML VIAL ONE (09:57)
[2017-03-18] MEDS ORDERED: niCARdipine/NACL/200 ML BAG IV ONE (09:57)
[2017-03-18] MEDS ORDERED: NA BICARBONATE 50 MEQ/50 ML VIAL ONE ×2 (09:57→12:08)
[2017-03-18] MEDS ORDERED: HEPARIN 10,000 UNIT/10 ML MDV ONE ×2 (09:58→10:02)
[2017-03-18] MEDS ORDERED: ceFAZolin 1 GM VIAL ONE (09:59)
[2017-03-18] MEDS ORDERED: ALBUMIN 5% 250 ML BOTTLE IV ONE (10:00)
[2017-03-18] MEDS ORDERED: CITRATE DEXTROSE SOLN 500 ML BAG ONE ×2 (10:01→13:01)
[2017-03-18] MEDS ORDERED: LIDOCAINE 2% 100 MG/5 ML SYR ONE (10:01)
[2017-03-18] MEDS ORDERED: MAGNESIUM SULFATE 1 GM/2 ML VIAL ONE (10:01)
[2017-03-18] MEDS ORDERED: methylPREDNISolone SOD SUCC 1 GM/8 ML VIAL ONE (10:02)
[2017-03-18] MEDS ORDERED: INSULIN REGULAR HUMAN 100 UNIT in NS 100 ML IV ONE ×2 (11:05→11:08)
[2017-03-18] MEDS ORDERED: NS 1,000 ML IV ONE ×2 (11:05→11:08)
[2017-03-18] MEDS ORDERED: SODIUM BICARBONATE 20 MEQ, LIDOCAINE 1% 10 ML in NORMOSOL-R 1,000 ML MISC ONE (11:05)
[2017-03-18] MEDS ORDERED: ceFAZolin 2 GM/DEXTROSE 100 ML IV ONE ×2 (11:05→11:08)
[2017-03-18] MEDS ORDERED: NOREPINEPHRINE BITARTRATE 16 MG in NS 250 ML IV ONE ×2 (11:05→11:08)
[2017-03-18] MEDS ORDERED: MANNITOL 20% 50 GM/250 ML BAG IV ONE ×2 (11:05→11:08)
[2017-03-18] MEDS ORDERED: CITRATE DEXTROSE SOLN 500 ML BAG MISC ONE ×2 (11:05→11:08)
[2017-03-18] MEDS ORDERED: AMINOCAPROIC ACID 5 GM/20 ML VIAL IV ONE ×2 (11:05→11:08)
[2017-03-18] MEDS ORDERED: PHENYLEPHRINE HCL 50 MG in NS 250 ML IV ONE ×2 (11:05→11:08)
[2017-03-18] MEDS ORDERED: MAGNESIUM SULF 2 GM/WATER 50 ML BAG IV ONE (11:05)
[2017-03-18] MEDS ORDERED: VERAPAMIL 5 MG, NITROGLYCERIN 2.5 MG, HEPARIN 500 UNIT, SODIUM BICARBONATE 0.2 MEQ in L... MISC ONE (11:08)
[2017-03-18] MEDS ORDERED: MUPIROCIN 2% 22 GM OINT NS ONE (11:08)
[2017-03-18] MEDS ORDERED: LIDOCAINE 1% 5 ML SDV ID PRN (11:08)
[2017-03-18] MEDS ORDERED: VANCOMYCIN PHARMACY TO DOSE MISC ONE (11:08)
[2017-03-18] MEDS ORDERED: CEFAZOLIN 2 GM/DEXTROSE/100 ML BAG IV ONE (11:22)
[2017-03-18] MEDS ORDERED: niCARdipine/NACL 200 ML IV SCH (11:30)
[2017-03-18] MEDS ORDERED: LIDOCAINE 2% 5 ML SDV ONE (11:36)
[2017-03-18] MEDS ORDERED: ROCURONIUM 100 MG/10 ML VIAL ONE (11:36)
[2017-03-18] MEDS ORDERED: PROPOFOL 200 MG/20 ML VIAL ONE (11:38)
[2017-03-18] MEDS ORDERED: MIDAZOLAM 2 MG/2 ML VIAL IVP ONE (11:59)
[2017-03-18] MEDS ORDERED: MIDAZOLAM 2 MG/2 ML VIAL ONE ×3 (12:09→16:16)
[2017-03-18] MEDS ORDERED: SCOPOLAMINE HYDROBROMIDE 1 MG/3 DAYS PATCH TD ONE (12:09)
[2017-03-18] MEDS ORDERED: HYDROmorphONE/DILAUDID 2 MG/ML INJ ONE (12:18)
[2017-03-18] MEDS ORDERED: PHENYLEPHRINE HCL 100 MCG/ML SYR ONE (12:30)
[2017-03-18] MEDS ORDERED: VANCOMYCIN HCL/NORMAL SALINE 250 ML IV ONE (13:00)
[2017-03-18] MEDS: SCOPOLAMINE HYDROBROMIDE 1 MG/3 DAYS PATCH TD SCH (16:24)
[2017-03-18] MEDS ORDERED: FUROSEMIDE 20 MG/2 ML VIAL ONE (16:28)
[2017-03-18] MEDS ORDERED: PROPOFOL/EMULSION 500 MG/50 ML BOTTLE IV ONE (16:54)
[2017-03-18] MEDS ORDERED: POLYETHYLENE GLYCOL 3350 17 GM PKT PO PRN (17:14)
[2017-03-18] MEDS ORDERED: D50W 25 GM/50 ML SYR IVP PRN (17:14)
[2017-03-18] MEDS ORDERED: PANTOPRAZOLE SODIUM 40 MG in NS 100 ML IV ONE (17:14)
[2017-03-18] MEDS ORDERED: ALBUMIN 5% 250 ML IV PRN (17:14)
[2017-03-18] MEDS ORDERED: MAGNESIUM SULF 2 GM/WATER 50 ML IV ONE (17:14)
[2017-03-18] MEDS ORDERED: BISACODYL 10 MG SUPP PR PRN (17:14)
[2017-03-18] MEDS ORDERED: ACETAMINOPHEN 650 MG SUPP PR PRN (17:14)
[2017-03-18] MEDS ORDERED: SODIUM CL NASAL 45 ML BTL EACHNARE PRN (17:14)
[2017-03-18] MEDS ORDERED: LACTULOSE 20 GM/30 ML UDCUP PO PRN (17:14)
[2017-03-18] MEDS ORDERED: MEPERIDINE 25 MG/ML SYR IVP PRN (17:14)
[2017-03-18] MEDS ORDERED: METOCLOPRAMIDE 10 MG/2 ML VIAL IVP PRN (17:14)
[2017-03-18] MEDS ORDERED: CEPACOL LOZENGE PO PRN (17:14)
[2017-03-18] MEDS ORDERED: MAGNESIUM HYDROXIDE 30 ML UDCUP PO PRN (17:14)
[2017-03-18] MEDS ORDERED: NS 1,000 ML IV SCH (17:15)
--- NOTE | 2017-03-18 17:22 | POSTOPPROG ---
Post Op Note Date of Operation: 03/18/17 Surgeon: Son Ponce Side Trimmer: Rebeca Anesthesiologist: Nate Anesthesia: GET(General Endotracheal) Pre-op Diagnosis: acute AI, uncertain etio s/p recent AVR w class 4 CHF Post-op Diagnosis: thrombosed AOV, no annular disuption Procedure: Reop Aortic root, ascending aorta replacement Inf/Abcess present in the surg proc area at time of surgery?: No EBL: [id number]
--- NOTE | 2017-03-18 17:22 | PDHPUP ---
History & Physical Update H&P update statement: This history and physical update is based on an assessment of the patient which was completed after admission or registration (within 24 hours), but prior to the surgery/procedure. H&P update: H&P reviewed & patient examined H&P changes: worsening thrombocytopenia, worsening AI, persistent tachycardia
[2017-03-18] MEDS ORDERED: INSULIN REGULAR HUMAN 100 UNIT in NS 100 ML IV SCH (17:30)
[2017-03-18] MEDS ORDERED: NALOXONE HCL 0.4 MG/ML INJ IVP PRN (17:48)
--- NOTE | 2017-03-18 17:48 | POSTANESTH ---
Post Anesthetic Evaluation Cardiovascular Status: Other, See Comment (stable on dopamine) Respiratory Status: Other, See Comment (stable on vent) Level of Consciousness/Mental Status: Mildly Sleepy, Arousable Pain Control: Adequate, Prn Tx Ordered Nausea/Vomiting Control: Adequate, Prn Tx Ordered Complications Possibly Related to Anesthesia: None Noted
--- NOTE | 2017-03-18 17:50 | PDANEPAE ---
ANE History of Present Illness redo avr ANE Past Medical History - Cardiovascular History Hx Hypertension: No Hx Arrhythmias: Yes Hx Chest Pain: No Hx Coronary Artery / Peripheral Vascular Disease: No Hx CHF / Valvular Disease: No Hx Palpitations: No Cardiovascular History Comment: heart murmur. aortic stenosis. dilation of ascending aorta - Pulmonary History Hx COPD: No Hx Asthma/Reactive Airway Disease: No Hx Recent Upper Respiratory Infection: No Hx Oxygen in Use at Home: No Hx Sleep Apnea: No Sleep Apnea Screening Result - Last Documented: Negative Pulmonary History Comment: doesn't think she has 100% capacity with lungs - Neurologic History Hx Cerebrovascular Accident: No Hx Seizures: No Hx Dementia: No - Endocrine History Hx Diabetes: No - Renal History Hx Renal Disorders: Yes Renal History Comment: frequency with age - Liver History Hx Hepatic Disorders: No - Neurological & Psychiatric Hx Hx Neurological and Psychiatric Disorders: No - Cancer History Hx Cancer: No - Congenital Disorder History Hx Congenital Disorders: No - GI History Hx Gastrointestinal Disorders: No - Other Health History Other Health History: wears glasses - Chronic Pain History Chronic Pain: No - Surgical History Prior Surgeries: na ANE Review of Systems Review of Systems: - Exercise capacity METS (RN): 4 METS ANE Patient History - Allergies Allergies/Adverse Reactions: ampicillin Allergy (Verified 03/07/17 18:33) Unknown Penicillins Allergy (Verified 03/08/17 15:43) Other-Enter Comments - Home Medications Home Medications: Aspirin EC [Aspirin EC 81 mg (*)] 81 mg PO DAILY 03/08/17 [Last Taken 03/13/17] Multivitamins [Multivitamin (*)] 1 each PO DAILY #0 03/08/17 [Last Taken ] [place]-3 Fatty Acids [Fish Oil 1000 mg (*)] 1 cap PO DAILY #0 03/08/17 [Last Taken 03/09/17] Acetaminophen [Tylenol ES 500 mg (*)] 500 - 1,000 mg PO Q6HRS PRN 03/16/17 [ Last Taken 03/16/17] Zolpidem Tartrate [Ambien 5MG (*)] 5 mg PO HS PRN 03/16/17 [Last Taken 03/13/17] - NPO status NPO Since - Liquids (Date): 03/18/17 NPO Since - Liquids (Time): 06:00 NPO Since - Solids (Date): 03/17/17 NPO Since - Solids (Time): 20:00 - Anes Hx Anes Hx: post operative nausea and vomiting - Smoking Hx Smoking Status: Never smoked - Family Anes Hx Family Hx Anesthesia Complications: none ANE Labs/Vital Signs - Labs Result Diagrams: 03/18/17 08:00 03/18/17 03:50 - Vital Signs Blood Pressure: 120/91 Heart Rate: 135 Respiratory Rate: 20 O2 Sat (%): 96 Height: 167.64 cm Weight: 69.9 kg ANE Physical Exam - Airway Mallampati Score: Class 2 Mouth exam: normal dental/mouth exam - Pulmonary Pulmonary: no respiratory distress - Cardiovascular Cardiovascular: irregularly irregular - ASA Status ASA Status: III ANE Anesthesia Plan Anesthesia Plan: general endotracheal anesthesia Lines/Monitors: arterial line, central line, PENELOPE Urgent/Emergent Case: Sawyer solis completed preop but documented later for safe timely pt care
[2017-03-18] MEDS: POTASSIUM Cl (KCl) 50 ML IV PRN ×3 (18:10→23:22)
[2017-03-18 18:12] LABS: CALCULATED OXYGEN SATURATION 95 % (92-95); O2 CONCENTRATIION 60 % (0-100)
--- NOTE | 2017-03-18 18:16 | GOP ---
[f rep st] OPERATIVE REPORT DATE OF OPERATION: 03/18/2017 SURGEON: Son Ponce DO PLANT TECH: Ismael Jose PA-C. ANESTHESIA: Kenroy Sullivan M.D. PREOPERATIVE DIAGNOSIS: Acute onset of aortic insufficiency with congestive heart failure, status post recent aortic valve replacement and replacement of ascending aorta. POSTOPERATIVE DIAGNOSIS: Evidence of thrombosed, malfunctioning bioprosthetic valve without perivalvular leak. PROCEDURE PERFORMED: 1. Reoperation aortic root replacement with a #23 Freestyle bioprosthetic root. 2. Re-replacement of ascending aorta with #22 Hemashield graft. FINDINGS: Patient underwent aortic valve and ascending aorta replacement urgently following catheterization laboratory diagnostic catheterization in anticipation of aortic valve surgery when she became hemodynamically unstable. She was found to have a hemopericardium at the time of the original surgery. This was drained. She underwent aortic valve replacement and ascending aorta replacement uneventfully. Postoperative echoes revealed a well-functioning valve without significant leak or obstruction. She was discharged home after a short episode of atrial fibrillation which was medically managed. She then returned the next day with rapid atrial fibrillation and symptoms of congestive heart failure and fluid overload. Repeat echo revealed severe aortic insufficiency, presumed to be perivalvular, although difficult to determine preoperatively. She also had profound new onset thrombocytopenia 9 days postop thought due to the paravalvular leak. She was severely symptomatic and hemodynamically unstable with hypotension and xonfusion and was taken to OR urgently while coumadin reversal was in process. Gradients were slightly higher than the previous echo. Because of this, concerns were that she either had dehiscence of the anulus or infection. DESCRIPTION OF PROCEDURE: She was reconsented for surgery, brought to the operating room urgently, intubated. Monitoring lines were placed. She was prepped and draped in sterile classical manner. Repeat sternotomy was performed without difficulty just by removing the sternal bands and wires. There were 3 L of serous fluid in both pleura. These were drained and discarded. She was then easily dissected out and cannulated in the standard fashion. Cardiopulmonary bypass was begun and cardioplegic arrest was obtained with retrograde cardioplegia initially and then direct antegrade cardioplegia down the coronary ostia. The previous graft was opened and inspecting the valve we found that all 3 leaflets had heavy, new onset granular pannus formation on both the ventricular and aortic side with 1 leaflet being stuck somewhat open due to the pannus ingrowth. Again, this valve was only 9 days old. We then spent some time removing the valve, removing individual pledgets and Cor -Knots sutures. No dehiscence was identified. The anulus was actually intact entirely and circumferentially. We then debrided any remaining fresh pannus from the anulus and the aortic root. At this point, I had 2 choices for other valves given the fact that this valve had abruptly clotted off within 2 weeks. There was no indication to replace this with another Magna valve. I chose a porcine aortic root which I had discussed with the family as far as a bioprosthetic valve which was porcine and had discussed the potential of placing that if I found her tissues to be poor quality or a large disruption. The other choice was a mechanical valve, but she did not want to be on Coumadin. For that reason, a Freestyle root was rotated 120 degrees and sutured into the anulus with felt reinforcement with interrupted single 2-0 Tycron sutures. We then implanted the left coronary artery into the pig's noncoronary sinus which had been rotated after fashioning a 6 mm hole with a punch in the root sinus. This was connected with 5-0 Prolene and reinforced in several sites. We then performed the same on the right coronary artery, being anastomosed to the pig's left coronary artery which lined up perfectly with the previous ostia of the pig. This also was sewn and reinforced with 5-0 Prolene without tension and without difficulty. The porcine LM ostia was oversewn w felt reinforced 4_0 prolene. We then decided to place a new graft. The previous graft was excised and a 22 mm Hemashield graft was sewn end-to-side distally and proximally with continuous running 3-0 Prolene, reinforced in several sites with pledgeted mattress sutures. The cross-clamp was removed with suction on the ascending aortic vent with the patient in Trendelenburg and on the LV sump. When no further air was identified, the patient was easily weaned from bypass. The heparin was reversed with protamine. The cannula was removed and oversewn. Additional blood products were given for thrombocytopenia. The patient was returned to the ICU in stable condition. /[id number]/MODL MTDD
[2017-03-18] MEDS: fentaNYL 100 MCG/2 ML INJ IVP PRN ×2 (19:00→21:40)
[2017-03-18 20:04] LABS: BASE EXCESS -2.2 mEq/L (-2.5-2.5); BICARBONATE 22 mEq/L (22-26); MEASURED OXYGEN SATURATION 95 % (92-95); PCO2 37 mmHg (34-38); PO2 80 mmHg (65-75); TCO2 23 mEq/L (23-27)
[2017-03-18 20:05] LABS: END TIDAL CO2 27; O2 CONCENTRATIION 40 % (0-100); P/F RATIO 200 RATIO; PATIENT RATE 14; PRESSURE SUPPORT 5; SIMV YES
[2017-03-18] MEDS: CHLORHEXIDINE GLUCONATE 15 ML UDL PO SCH (20:39)
[2017-03-18] MEDS: FAMOTIDINE 20 MG/NACL 50 ML IV SCH (20:39)
[2017-03-18] MEDS: SENNOSIDES/DOCUSATE SODIUM TAB PO SCH (20:39)
[2017-03-18] MEDS ORDERED: MUPIROCIN 2% 22 GM OINT NS SCH (21:00)
[2017-03-18] MEDS ORDERED: CHLORHEXIDINE GLUC HIBICLENS 118 ML BTL TP SCH (21:00)
[2017-03-18] MEDS: ceFAZolin 2 GM/DEXTROSE 100 ML IV SCH (21:46)
[2017-03-18] MEDS: MUPIROCIN 2% 22 GM OINT NS SCH (22:07)
[2017-03-18] MEDS: HYDROCODONE/APAP 5/325 TAB PO PRN (23:27)
[2017-03-19 04:04] LABS: % IMMATURE GRANULYOCYTES 0.6 % (0.0-1.1); ABSOLUTE IMMATURE GRANULOCYTES 0.11 10^3/uL (0.00-0.10); ADD DIFF? NO; ADD MORPH? NO; ADD SCAN? NO; ATYPICAL LYMPHOCYTE FLAG 0 (0-99); FRAGMENT RBC FLAG 0 (0-99); HEMATOCRIT 29.6 % (38.0-47.0); HEMOGLOBIN 9.8 g/dL (12.6-16.3); LEFT SHIFT FLG 30 (0-99); LIPEMIA HEMOLYSIS FLAG 80 (0-99); MEAN CELL HEMOGLOBIN 31.1 pg (27.9-34.1); MEAN CELL HEMOGLOBIN CONCENTR. 33.1 g/dL (32.4-36.7); MEAN PLATELET VOLUME 11.8 fL (8.7-11.7); PLATELET CLUMPS FLAG 0 (0-99); RED BLOOD CELL COUNT 3.15 10^6/uL (4.18-5.33); RED CELL DISTRIBUTION WIDTH 15.8 % (11.5-15.2)
[2017-03-19 04:06] LABS: PLATELET COUNT 38 10^3/uL (150-400)
[2017-03-19 04:24] LABS: PLATELET ESTIMATE DECREASED (ADEQ)
[2017-03-19] MEDS: ceFAZolin 2 GM/DEXTROSE 100 ML IV SCH ×3 (05:12→22:06)
[2017-03-19] MEDS ORDERED: HEPARIN 5,000 UNIT/0.5 ML SYR SC SCH (06:00)
[2017-03-19 06:31] LABS: INR 1.25 (0.83-1.16); PROTIME(PATIENT) 15.7 SEC (12.0-15.0)
[2017-03-19 06:35] LABS: ANION GAP 10 mEq/L (8-16); CALCIUM 8.3 mg/dL (8.5-10.4); CARBON DIOXIDE 24 mEq/l (22-31); CHLORIDE 105 mEq/L (97-110); CREATININE 0.9 mg/dL (0.6-1.0); GLOMERULAR FILTRATION RATE > 60; GLUCOSE 130 mg/dL (70-100); POTASSIUM 4.9 mEq/L (3.5-5.2); SODIUM 139 mEq/L (134-144)
--- NOTE | 2017-03-19 07:40 | SOAPPROG ---
SOAP Progress Note Assessment/Plan: POD #1: Reoperation, explant #23 Magna bioprosthetic aortic valve, implant aortic root replacement with #23 freestyle bioprosthetic root, re-replacement ascending aorta with #22 graft, drainage b/l pleural effusions POD #11: AVR with ascending aortic replacement, drainage hemopericardium, AtriClip SHORTY Acute post-operative severe AI with CHF and thrombocytopenia secondary to thrombosed malfunctioning bioprosthetic valve s/p bioprosthetic aortic root replacement and re-replacement of ascending aorta - Wean dopamine to off and possible transfer to PCU later today - CT to bulb suction, AL out if BP stable, FC out - Heparin SQ for DVT prophylaxis when platelets > 100 Acute blood loss anemia with thrombocytopenia and coagulopathy - Stable s/p 2 PRBC, 4 FFP, 1 platelet Paroxysmal atrial fibrillation - Currently in SR - Prophylaxis with amiodarone, beta-arash when appropiate - Coumadin for thromboprophylaxis, duration pending stability of rhythm Subjective: Denies CP/SOB. Objective: Vital Signs Temp Pulse Resp BP Pulse Ox 37 C 80 10 L 105/61 96 03/19/17 04:00 03/19/17 06:00 03/19/17 06:00 03/19/17 06:00 03/19/17 06:00 Laboratory Results 03/19/17 03:55 03/19/17 06:10 03/18/17 03/19/17 03/20/17 05:59 05:59 05:59 Intake Total 700 1768 Output Total 1530 Balance 700 238 PT 15.7 SEC (12.0-15.0) H 03/19/17 06:10 INR 1.25 (0.83-1.16) H 03/19/17 06:10 Physical Exam - Physical Exam General Appearance: WD/WN, alert, no apparent distress EENT: No scleral icterus (R), No scleral icterus (L) Neck: normal inspection Respiratory: No respiratory distress Cardiac/Chest: regular rate, rhythm Abdomen: non-tender, soft, No distended Skin: normal color, warm/dry Extremities: No pedal edema Neuro/Psych: no motor/sensory deficits, alert, normal mood/affect, oriented x 3 ICD10 Worksheet Patient Problems: Problems Problem Status Onset Postoperative atrial fibrillation Acute S/P AVR (aortic valve replacement) Acute Shortness of breath Acute S/P aneurysm repair Acute 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
[2017-03-19] MEDS ORDERED: ACETAMINOPHEN 500 MG TAB ONE (08:31)
[2017-03-19] MEDS ORDERED: ASPIRIN 81 MG CHEWABLE TAB TUBE PRN (09:00)
[2017-03-19] MEDS: CHLORHEXIDINE GLUCONATE 15 ML UDL PO SCH (10:26)
[2017-03-19] MEDS: FAMOTIDINE 20 MG/NACL 50 ML IV SCH (10:29)
[2017-03-19] MEDS: SENNOSIDES/DOCUSATE SODIUM TAB PO SCH ×2 (10:29→21:45)
[2017-03-19] MEDS: OMEGA-3 FATTY ACIDS 1,000 MG CAP PO SCH ×2 (10:30→10:31)
[2017-03-19] MEDS: MUPIROCIN 2% 22 GM OINT NS SCH ×2 (10:30→22:01)
[2017-03-19] MEDS: ASPIRIN 81 MG CHEWABLE TAB PO SCH ×2 (10:30→10:48)
[2017-03-19] MEDS ORDERED: WARFARIN SODIUM 2 MG TAB PO ONE (10:55)
[2017-03-19] MEDS ORDERED: FUROSEMIDE 40 MG/4 ML VIAL IVP ONE (10:57)
[2017-03-19] MEDS ORDERED: PROTOCOL POTASSIUM 1 DOSE MISC PRN (10:58)
--- NOTE | 2017-03-19 12:17 | GCON ---
[f rep st] CONSULTATION CRITICAL CARE CONSULT DATE OF CONSULTATION: 03/19/2017 HISTORY OF PRESENT ILLNESS: The patient is a 71-year-old female, who recently was found to have haider re aortic stenosis, when she complained of exertional dyspnea. She underwent a preoperative cardiac catheterization, which was complicated by hypotension and pericardial effusion. She was then taken t o the operating room emergently for evacuation of her effusion and aortic valve replacement. Her pos toperative course. During that hospitalization was complicated by atrial fibrillation and thrombocyt openia, which she was treated appropriately and seemed to be doing fairly well. She was discharged y day to home, but when she came to [facility] earlier in the day, she had a presyncopal episode, and was found to be in atrial fibrillation with rapid ventricular response. She subsequentl y was brought into the hospital. A repeat echo showed severe aortic regurgitation, thought to be due to leakage and she underwent an emergent aortic valve replacement. She was extubated and seemed to be recovering fairly well. She had some minor hypotension this morning, but is actively weaning off her dopamine, and has rate that is well controlled. REVIEW OF SYSTEMS: Otherwise negative. PAST MEDICAL HISTORY: 1. Aortic stenosis. 2. Migraines. 3. Atrial fibrillation. 4. Thrombocytopenia. PAST SURGICAL HISTORY: Includes aortic valve replacement, as well as remote tonsillectomy. SOCIAL HISTORY: She is a nonsmoker. No alcohol or IV drug use. FAMILY HISTORY: Noncontributory at this time. CURRENT MEDICATIONS: Include Tylenol, Page, amiodarone, aspirin, Dulcolax, Ancef, Reglan p.r.n., Zo zulema p.r.n., Protonix, MiraLAX, scopolamine, Ultram. PHYSICAL EXAM: VITAL SIGNS: Blood pressure was 102/51, heart rate of 82, respirations 16, oxygen sa turation 97% on 1 L. GENERAL: She was a very pleasant woman, in no apparent distress. Able to spea k in full sentences without using accessory muscles for breathing. HEENT: Pupils equally round and reactive to light. Nonicteric and noninjected. Mucous membranes are moist without erythema or exuda te. NECK: Supple without adenopathy or jugular vein distention. Breath sounds were clear to auscul tation bilaterally without wheezes, rubs, or rales. HEART: Regular rate and rhythm, without murmurs , rubs, or gallops. Median sternotomy incision was clean and dry, without evidence of infection. AB DOMEN: Soft, nontender, nondistended, without hepatosplenomegaly. EXTREMITIES: Show no clubbing, c yanosis, or edema. NEUROLOGIC: Nonfocal, including cranial nerves and deep tendon reflexes. SKIN: Warm and dry without evidence of rash. OBJECTIVE DATA: Includes a white count of 19.4, hematocrit was 29 early this morning, it remains 29 at point of care. INR was 1.25. Basic metabolic panel was fairly unremarkable. ASSESSMENT AND PLAN: 1. Status post redo over aortic valve repair, she seems to be doing well now, certainly hemodynamica lly, with very minimal dopamine present, this is actively being weaned off. 2. Atrial fibrillation. This is feeling well controlled at this point, without rapid ventricular re sponse. 3. Hypotension due to her recent surgery. She seems to be getting better from that perspective as w diane. I do not see evidence of septic shock, and I believe her ejection fraction was normal, that wou ld make cardiogenic shock unlikely. 4. Hypoxemia, this is likely related to just atelectasis. We will continue with pulmonary toilet, a nd we will continue to follow. /[id number]/MODL
[2017-03-19] MEDS: traMADol 50 MG TAB PO PRN ×2 (12:32→17:34)
--- NOTE | 2017-03-19 14:01 | GCON ---
[f rep st] CONSULTATION MEDICAL ONCOLOGY CONSULTATION DATE OF CONSULTATION: 03/19/2017 REASON FOR CONSULTATION: Thrombocytopenia. HISTORY OF PRESENT ILLNESS: The patient is a 71-year-old female, who underwent an aortic valve repla cement approximately 11 days ago. She was discharged from the hospital. Her initial valve was a bov ine heart valve. She had a syncopal episode and was readmitted to the hospital, at which time she wa s found to have congestive heart failure. The patient was taken emergently to the operating room yesterday, where she underwent reoperation wit h placement of her heart valve with a porcine valve. Surgery went well. She is currently in the ICU and has been successfully extubated. She has had a gradual drop in her platelet count. She did rec eive heparin products with her first surgery. A HIT antibody has been sent and is pending. All furt her heparin products have been held. She is on warfarin. She has had no significant bleeding or bru ising. She has no extremity swelling or edema, and has not had a thrombotic episode. She denies any prior history of blood abnormalities. When seen this afternoon, she was accompanied by her daughter . PAST MEDICAL HISTORY: Notable for chronic aortic stenosis. ALLERGIES: Ampicillin and penicillin. SOCIAL HISTORY: The patient is originally from [place], [place]. She lives in [place]. She is a nonsmoker. She does not drink alcohol FAMILY HISTORY: Noncontributory. REVIEW OF SYSTEMS: As outlined above. The patient denies any chest pain or dyspnea at rest. Denies abdominal pain or bloating. Denies extremity pain. PHYSICAL EXAMINATION: The patient is resting comfortably in bed in no acute distress. She has an IJ catheter in the right side with no bleeding at the site, no bleeding at IV sites. She does have an ecchymosis over her sternal incision. There was no active bleeding. There was no mucosal bleeding o r epistaxis. No visible petechiae. She has good capillary refill in all of her fingers and toes. No extremity swelling or edema. No evidence of DVT. LABORATORY STUDIES: Platelet count on March 08 was 223,000, fell 99,000, and jenny to 124,000. It was 44,000 on readmission to the hospital, dropped to 34,000 yesterday, and is up to 38,000 today. The remainder of CBC from today reveals a hemoglobin of 9.8, a hematocrit of 29%, a white count of 19 ,400. Sodium 138, potassium 5.0, chloride 107, BUN 16, creatinine 0.9. INR is 1.25. HIT antibody t est is pending. IMPRESSION AND PLAN: 1. Thrombocytopenia (suspect a consumptive thrombocytopenia). 2. Congestive heart failure due to aortic stenosis, status post re-do aortic valve replacement on . 3. Postoperative anemia. The patient is a pleasant 71-year-old female, who is admitted currently to the ICU following readmiss ion to the hospital for atrial fibrillation and congestive heart failure. She underwent an emergent aortic valve replacement yesterday with a porcine aortic valve. She has developed gradual thrombocyt openia over the last several days. She was exposed to heparin products and certainly the temporal co urse could potentially be consistent with heparin-induced thrombocytopenia, though clinically I think this is less likely. There is no evidence of thrombosis. All heparin products have been held. I baudilio jansen confirmed this with nursing. I do not believe she needs to be started on argatroban. She has be gun warfarin which I support. I suspect that her thrombocytopenia is more likely due to a component of low-grade disseminated intra vascular coagulation from her mechanical heart valve that has now been replaced. She likely has also a consumptive component. Her most recent platelet count is slightly better. There is no clinical e vidence of bleeding. I do not recommend any further intervention currently. Continue current management. I do recommend continuing to hold all heparin products. I discussed this with nursing today. We will await the results of her heparin-induced thrombocytopenia assay. If positive, I would feel t hat this represented a true allergy to heparin, and this would need to be avoided in the future. I expect that her platelet count will gradually improve. Our service will continue to follow her. The above plan was discussed with the patient and her daughter. Their questions were answered. BILLING: Total time for today's visit was approximately 45 minutes, of which greater than 50% was sp ent in counseling and care coordination. /[id number]/MODL
[2017-03-19 14:17] LABS: POTASSIUM 4.8 mEq/L (3.5-5.2)
[2017-03-19] MEDS: HYDROCODONE/APAP 5/325 TAB PO PRN ×2 (15:15→23:04)
[2017-03-19 16:02] LABS: HEPARIN INDUCED ANTIBODY POSITIVE (Negative); HEPARIN INHIBITION 60 %; HEPARIN-PF4 IgG ANTIBODY ELISA 2.322 OD (<0.400)
--- NOTE | 2017-03-19 17:07 | ASMTCMCOM ---
CM Note CM Note Notes: Patient admitted after feeling lightheaded at an INR check appointment. She is s/p AVR 03/15 and was admitted to [facility] 03/16. Her post-op course was complicated by A-Fib, and she is now volume overloaded. Per RN, patient has been very upset today, as a fruit express agent told her she might need to have open heart surgery. Per this, patient declined PT and OT today. She lives alone and is normally indpendent. Discharge needs TBD, CM will follow. Date Signed: 03/17/2017 04:06 PM Electronically Signed By:Alana Farooq
[2017-03-19] MEDS: PANTOPRAZOLE SODIUM 40 MG TAB PO SCH (17:38)
[2017-03-19 18:25] LABS: POTASSIUM 4.7 mEq/L (3.5-5.2)
--- NOTE | 2017-03-19 18:41 | WOCRNPDOC ---
WOCRN Advanced Assessment Note - Skin Integrity Problem, Advanced Assess Right Lateral Hip Dressing Type: Open to Air Exudate Amount: None Lula Wound Tissue: Ecchymotic Wound Bed Color: Purple Site Odor: None Site Measurement - Head-to-Toe Length X Width X Depth (cm): 2.5 x 1 x 0 Skin Integrity Problem Comment: Intact bruising at lateral right hip: Allevyn dressing recommended to BIJU Zacarias, for patient comfort and site protection. Right Lateral Thigh Pressure Injury Dressing Type: Open to Air Exudate Amount: None Lula Wound Tissue: Ecchymotic Lula Wound Swelling: None Site Odor: None Site Measurement - Head-to-Toe Length X Width X Depth (cm): 1 x 4 x 0 Pressure Injury Stage: Sales Exec Related Pressure Injury Pressure Injury Present on Admit: No Skin Integrity Problem Comment: Intact tissue with bruised appearance at vertical linear site, possibly of tubing during procedure in OR, reported by BIJU Alexander. Allevyn dressing recommended to BIJU Zacarias, for patient comfort and site protection. Right Lateral Knee Tape Injury Dressing Type: Open to Air Exudate Amount: None Lula Wound Tissue: Ecchymotic Lula Wound Swelling: None (peeling superficial epidermis) Wound Bed Constitution: Smooth Tissue Site Odor: None Site Measurement - Head-to-Toe Length X Width X Depth (cm): 1 x 8 x 0 Skin Integrity Problem Comment: BIJU Alexander reports that epidermal peeling was observed in connection with removal of adhesive placed in the OR. Applied Cavilon skin protectant to site, and recommended adding Allevyn dressing to BIJU Zacarias, per nursing judgement for patient comfort and/or protection.
--- NOTE | 2017-03-19 20:34 | SOAPPROG ---
LAMBERT Progress Note Assessment/Plan: Assessment: Plan: 03/17/17 16:32 45 min f/f pt and family counseling pt w new severe paravalvular leak after recent AVR/ascending, not present intraop or post op echo heavily calcified and debrided at surgery , may be a technical issue will redo once coumadin corrects, should repair mitral w ring only as well to avoid future issues platelets decreased due to paravalvular issue, were ok after initial surgery begin reversing INR for OR Monday03/19/17 20:31 notified + HIT antibodies, reviewed w oncology, suggest low dose argatroban protocol, d/w pt and daughter obvious risk associated anticoagulation but given acute valve thrombosis and thrombocytopenia, not a lot of options Objective: Vital Signs Temp Pulse Resp BP Pulse Ox 36.7 C 81 14 107/58 L 98 03/19/17 16:00 03/19/17 18:00 03/19/17 18:00 03/19/17 18:00 03/19/17 18:00 Laboratory Results 03/19/17 03:55 03/19/17 18:06 03/18/17 03/19/17 03/20/17 05:59 05:59 05:59 Intake Total 700 1768 1500 Output Total 1530 980 Balance 700 238 520 PT 15.7 SEC (12.0-15.0) H 03/19/17 06:10 INR 1.25 (0.83-1.16) H 03/19/17 06:10 ICD10 Worksheet Patient Problems: Problems Problem Status Onset Postoperative atrial fibrillation Acute S/P AVR (aortic valve replacement) Acute Shortness of breath Acute S/P aneurysm repair Acute 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
[2017-03-19] MEDS ORDERED: FUROSEMIDE 20 MG/2 ML VIAL IVP ONE (20:36)
[2017-03-19] MEDS: ARGATROBAN 100 MG in NS 100 ML IV SCH (21:15)
[2017-03-19] MEDS: AMIODARONE HCL 200 MG TAB PO SCH (21:45)
[2017-03-19] MEDS: ACETAMINOPHEN 500 MG TAB PO PRN (21:59)
[2017-03-20] MEDS: traMADol 50 MG TAB PO PRN (04:28)
[2017-03-20] MEDS: ceFAZolin 2 GM/DEXTROSE 100 ML IV SCH (05:19)
[2017-03-20 05:30] LABS: % IMMATURE GRANULYOCYTES 0.7 % (0.0-1.1); ABSOLUTE IMMATURE GRANULOCYTES 0.11 10^3/uL (0.00-0.10); ABSOLUTE NRBC COUNT 0.02 10^3/uL (0-0.01); ADD DIFF? NO; ADD MORPH? NO; ADD SCAN? NO; ATYPICAL LYMPHOCYTE FLAG 20 (0-99); FRAGMENT RBC FLAG 0 (0-99); HEMATOCRIT 26.4 % (38.0-47.0); HEMOGLOBIN 8.4 g/dL (12.6-16.3); LEFT SHIFT FLG 10 (0-99); LIPEMIA HEMOLYSIS FLAG 80 (0-99); MEAN CELL HEMOGLOBIN 30.8 pg (27.9-34.1); MEAN CELL HEMOGLOBIN CONCENTR. 31.8 g/dL (32.4-36.7); MEAN CELL VOLUME 96.7 fL (81.5-99.8); MEAN PLATELET VOLUME 12.6 fL (8.7-11.7); NRBC-AUTO% 0.1 % (0.0-0.2); PLATELET CLUMPS FLAG 0 (0-99); RED BLOOD CELL COUNT 2.73 10^6/uL (4.18-5.33); RED CELL DISTRIBUTION WIDTH 15.9 % (11.5-15.2)
[2017-03-20] MEDS ORDERED: AMIODARONE A.FIB-6HR INFSN (ORDER 2/3) IV ONE (05:30)
[2017-03-20] MEDS ORDERED: AMIODARONE A.FIB-LOAD DOSE(ORDER 1/3) IV ONE (05:30)
[2017-03-20 05:37] LABS: PLATELET COUNT 41 10^3/uL (150-400)
[2017-03-20 05:39] LABS: INR 2.1 (0.83-1.16); PROTIME(PATIENT) 23.7 SEC (12.0-15.0)
[2017-03-20 05:40] LABS: APTT 58.6 SEC (23.0-38.0)
[2017-03-20 05:43] LABS: CHLORIDE 100 mEq/L (97-110)
[2017-03-20 06:07] LABS: PLATELET ESTIMATE DECREASED (ADEQ)
[2017-03-20 06:09] LABS: ANION GAP 8 mEq/L (8-16); CALCIUM 8.3 mg/dL (8.5-10.4); CARBON DIOXIDE 24 mEq/l (22-31); CREATININE 1.4 mg/dL (0.6-1.0); GLOMERULAR FILTRATION RATE 37; GLUCOSE 128 mg/dL (70-100); POTASSIUM 4.4 mEq/L (3.5-5.2); SODIUM 132 mEq/L (134-144)
--- NOTE | 2017-03-20 08:06 | SOAPPROG ---
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 Valve and ascending aorta replaced with a porcine root and dacron interposition graft. 3L bilateral pleural effusions drained. Stable early postop course. Antithrombotic prophylaxis with Argatroban as directed by hematology. Acute expected blood loss anemia with HIT and coagulopathy - Stable s/p 2u PRBC , 4u FFP, 1u platelet. Precautionary venous US of legs neg for DVT. Platelet count stable on Argatroban. Paroxysmal atrial fibrillation - Controlled with dilt gtt preop. Postop resumption of oral amiodarone with BB as allowed by BP. Coumadin for [id number]- VASc score of 3 once platelets > 100. Target INR 2-3. Duration TBD, min 3 mo. Plan: Blakes to bulb suction. Wrap and cap Vwires. D/C CVP monitoring. Cont Argatroban Cont oral amio 200 mg BID. IV bolus 150 mg prn RVR. Restart metoprolol tartrate. Tx SDU. 03/20/17 08:03 Subjective: Hurting a bit. No nausea or dizziness. Trying to stay positive. Objective: Vital Signs Temp Pulse Resp BP Pulse Ox 36.7 C 122 H 12 98/60 L 91 L 03/20/17 04:00 03/20/17 06:00 03/20/17 06:00 03/20/17 06:00 03/20/17 06:00 Laboratory Results 03/20/17 05:20 03/20/17 05:20 03/19/17 03/20/17 03/21/17 05:59 05:59 05:59 Intake Total 1768 2041 Output Total 1530 2230 Balance 238 -189 PT 23.7 SEC (12.0-15.0) H D 03/20/17 05:20 INR 2.10 (0.83-1.16) H 03/20/17 05:20 Back in AF w RVR early this am, responsive to bolus amio and oral BB Holding SBP > 90 Min suppl O2 req CXR-> bilat pl tubes in good position, no undrained effusions I/O balanced. Cr up slightly s/p vigorous diuresis No further drop in plt count. Physical Exam - Physical Exam General Appearance: alert, no apparent distress Respiratory: lungs clear, other (blakes y-d to pleurovac, serosang drainage, no AL) Cardiac/Chest: tachycardia, irregularly irregular, other (Sternotomy CDI) Abdomen: soft Skin: warm/dry Extremities: swelling (trace) ICD10 Worksheet Patient Problems: Problems Problem Status Onset Postoperative atrial fibrillation Acute S/P AVR (aortic valve replacement) Acute Shortness of breath Acute S/P aneurysm repair Acute 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
[2017-03-20] MEDS: HYDROCODONE/APAP 5/325 TAB PO PRN ×4 (08:18→23:33)
[2017-03-20] MEDS: OMEGA-3 FATTY ACIDS 1,000 MG CAP PO SCH (08:21)
[2017-03-20] MEDS: PANTOPRAZOLE SODIUM 40 MG TAB PO SCH (08:21)
[2017-03-20] MEDS: SENNOSIDES/DOCUSATE SODIUM TAB PO SCH ×2 (08:22→20:55)
[2017-03-20] MEDS: ASPIRIN 81 MG CHEWABLE TAB PO SCH (08:23)
[2017-03-20] MEDS ORDERED: METOPROLOL TARTRATE 25 MG TAB PO SCH (09:00)
[2017-03-20] MEDS ORDERED: AMIODARONE A.FIB-18HR INFSN (ORDER 3/3) IV ONE (11:00)
--- NOTE | 2017-03-20 12:06 | SOAPPROG ---
SOAP Progress Note Assessment/Plan: E&M for HIT * Heparin Induced Thrombocytopenia: Based on exposure and re-exposure, timing of drop, clot, and overall drop, she fell into intermediate risk for HIT based on 4T. The antibody confirms the suspicion. She is currently on agatroban. Once platelets start to rise and get >100K, then can add warfarin. Will need to be on warfarin minimum 3 months just for this alone; possibly longer with other medical issues. She is to go no further heparin. Would only transfuse platelets if bleeding. * Acute post-operative severe AI with CHF secondary to thrombosed malfunctioning bioprosthetic valve s/p bioprosthetic aortic root replacement and re-replacement of ascending aorta, POD#2. POD #12 AVR with ascending aortic replacement, drainage hemopericardium, AtriClip SHORTY * Multifactorial anemia: ok to transfuse PRBC as clinically indicated with thrombocytopenia and coagulopathy * Paroxysmal atrial fibrillation: on amiodarone; once HIT controlled will start warfarin for thromboprophylaxis, duration pending stability of rhythm but minimum of 3 months. Spent>35 min with patient, nursing, family and chart. Subjective: Was having some chest discomfort better after norco. No leg pain or swelling. Objective: Vital Signs Temp Pulse Resp BP Pulse Ox 36.7 C 135 H 12 97/61 L 91 L 03/20/17 04:00 03/20/17 08:23 03/20/17 06:00 03/20/17 08:23 03/20/17 06:00 Laboratory Results 03/20/17 05:20 03/20/17 05:20 03/19/17 03/20/17 03/21/17 05:59 05:59 05:59 Intake Total 1768 2041 Output Total 1530 2230 Balance 238 -189 PT 23.7 SEC (12.0-15.0) H D 03/20/17 05:20 INR 2.10 (0.83-1.16) H 03/20/17 05:20 Laboratory Tests 03/17/17 03/19/17 03/20/17 12:20 03:55 05:20 WBC 19.49 H D 16.29 H Hgb 9.8 L 8.4 L Plt Count 38 L 41 L Heparin-PF4 AB OD 2.322 H Heparin-PF4 Ab Inhibit 60 Heparin-PF4 Ab Interp POSITIVE H Physical Exam - Physical Exam General Appearance: no apparent distress Respiratory: lungs clear Cardiac/Chest: tachycardia, irregularly irregular, No edema ICD10 Worksheet Patient Problems: Problems Problem Status Onset Postoperative atrial fibrillation Acute S/P AVR (aortic valve replacement) Acute Shortness of breath Acute S/P aneurysm repair Acute 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
[2017-03-20 12:40] LABS: POTASSIUM 4.5 mEq/L (3.5-5.2)
[2017-03-20] MEDS: AMIODARONE HCL 200 MG TAB PO SCH ×2 (12:40→20:56)
[2017-03-20] MEDS: MUPIROCIN 2% 22 GM OINT NS SCH (12:40)
[2017-03-20] MEDS ORDERED: DOPamine/DEXTROSE/250 ML BAG IV ONE (13:21)
--- NOTE | 2017-03-20 14:32 | PDINTPN ---
Division Traffic Superintendent Progress Note Assessment/Plan: Assessment: S/P SVRx2; Hemodynamically stable, no murmur, on minimal DA. 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 Atrial fibrillation: Continues to be in AF. On amiodarone. Rate a bit high. Plan: Continue argatroban, wean off DA. Follow platelets and H/H. Increase activity as tolerated. Keep in ICU for now. 03/20/17 14:33 03/20/17 14:35 Subjective: Feels OK, some pain at inferior incision/CT site. Feeling quite weak. Mild dyspnea with walk. Objective: Vital Signs Temp Pulse Resp BP Pulse Ox 36.7 C 106 H 16 89/61 L 99 03/20/17 04:00 03/20/17 13:40 03/20/17 13:40 03/20/17 13:40 03/20/17 13:40 Laboratory Results 03/20/17 05:20 03/20/17 12:05 03/19/17 03/20/17 03/21/17 05:59 05:59 05:59 Intake Total 1768 2041 Output Total 1530 2230 Balance 238 -189 PT 23.7 SEC (12.0-15.0) H D 03/20/17 05:20 INR 2.10 (0.83-1.16) H 03/20/17 05:20 Physical Exam - Physical Exam General Appearance: alert, no apparent distress EENT: normal ENT inspection Neck: normal inspection Respiratory: lungs clear Cardiac/Chest: tachycardia, irregularly irregular Abdomen: normal bowel sounds, non-tender, soft Skin: normal color, warm/dry Extremities: non-tender Neuro/Psych: alert, normal mood/affect, oriented x 3 ICD10 Worksheet Patient Problems: Problems Problem Status Onset Postoperative atrial fibrillation Acute S/P AVR (aortic valve replacement) Acute Shortness of breath Acute S/P aneurysm repair Acute 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
[2017-03-20 16:21] LABS: HEMATOCRIT 27.2 % (38.0-47.0); HEMOGLOBIN 8.8 g/dL (12.6-16.3)
[2017-03-20 16:24] LABS: PLATELET COUNT 44 10^3/uL (150-400)
[2017-03-20 16:44] LABS: PLATELET ESTIMATE DECREASED (ADEQ)
[2017-03-20 19:10] LABS: POTASSIUM 4.2 mEq/L (3.5-5.2)
[2017-03-20] MEDS: METOPROLOL TARTRATE 25 MG TAB PO SCH (20:55)
[2017-03-20] MEDS ORDERED: AMIODARONE HCL 100 ML IV ONE (21:58)
[2017-03-21 04:55] LABS: % IMMATURE GRANULYOCYTES 0.8 % (0.0-1.1); ABSOLUTE IMMATURE GRANULOCYTES 0.12 10^3/uL (0.00-0.10); ABSOLUTE NRBC COUNT 0.03 10^3/uL (0-0.01); ADD DIFF? NO; ADD MORPH? NO; ADD SCAN? NO; ATYPICAL LYMPHOCYTE FLAG 10 (0-99); FRAGMENT RBC FLAG 0 (0-99); HEMATOCRIT 30.7 % (38.0-47.0); HEMOGLOBIN 10.2 g/dL (12.6-16.3); LEFT SHIFT FLG 0 (0-99); LIPEMIA HEMOLYSIS FLAG 80 (0-99); MEAN CELL HEMOGLOBIN 31.5 pg (27.9-34.1); MEAN CELL HEMOGLOBIN CONCENTR. 33.2 g/dL (32.4-36.7); MEAN CELL VOLUME 94.8 fL (81.5-99.8); MEAN PLATELET VOLUME 11.1 fL (8.7-11.7); NRBC-AUTO% 0.2 % (0.0-0.2); PLATELET CLUMPS FLAG 10 (0-99); RED BLOOD CELL COUNT 3.24 10^6/uL (4.18-5.33); RED CELL DISTRIBUTION WIDTH 15.3 % (11.5-15.2)
[2017-03-21 04:59] LABS: PLATELET COUNT 38 10^3/uL (150-400)
[2017-03-21] MEDS ORDERED: AMIODARONE HCL 200 ML IV SCH (05:00)
[2017-03-21 05:05] LABS: INR 2.32 (0.83-1.16); PROTIME(PATIENT) 25.7 SEC (12.0-15.0)
[2017-03-21 05:07] LABS: APTT 64.9 SEC (23.0-38.0)
[2017-03-21 05:16] LABS: ANION GAP 7 mEq/L (8-16); CALCIUM 8.2 mg/dL (8.5-10.4); CARBON DIOXIDE 24 mEq/l (22-31); CHLORIDE 101 mEq/L (97-110); GLOMERULAR FILTRATION RATE 55; GLUCOSE 124 mg/dL (70-100); SODIUM 132 mEq/L (134-144)
[2017-03-21 05:17] LABS: PLATELET ESTIMATE DECREASED (ADEQ)
[2017-03-21] MEDS ORDERED: FUROSEMIDE 40 MG/4 ML VIAL IVP ONE (05:32)
[2017-03-21] MEDS: ARGATROBAN 100 MG in NS 100 ML IV SCH (05:59)
--- NOTE | 2017-03-21 07:26 | SOAPPROG ---
SOAP Progress Note Assessment/Plan: POD #3: Reoperation, explant #23 Magna bioprosthetic aortic valve, implant aortic root replacement with #23 freestyle bioprosthetic root, re-replacement ascending aorta with #22 graft, drainage b/l pleural effusions POD #13: AVR with ascending aortic replacement, drainage hemopericardium, AtriClip SHORTY Acute post-operative severe AI with acute diastolic CHF, stage IV, secondary to thrombosed malfunctioning bioprosthetic valve s/p bioprosthetic aortic root replacement and re-replacement of ascending aorta - ECHO this AM to evaluate valve function Acute blood loss anemia with thrombocytopenia and coagulopathy - Stable s/p 2 PRBC, 4 FFP, 1 platelet Heparin induced thrombocytopenia - Continue argatroban - Further mgmt as per hematology Paroxysmal atrial fibrillation - Continue amiodarone and beta-arash - Thromboprophylaxis with argatroban with eventual transition to Coumadin, duration as per HIT protocol Subjective: Tired from urinating all night. Denies pain/SOB. Objective: Vital Signs Temp Pulse Resp BP Pulse Ox 36.8 C 76 16 112/66 99 03/21/17 04:00 03/21/17 06:00 03/21/17 06:00 03/21/17 06:00 03/21/17 06:00 Laboratory Results 03/21/17 04:35 03/21/17 04:35 03/20/17 03/21/17 03/22/17 05:59 05:59 05:59 Intake Total 2041 1834 Output Total 2230 2210 Balance -189 -376 PT 25.7 SEC (12.0-15.0) H 03/21/17 04:35 INR 2.32 (0.83-1.16) H 03/21/17 04:35 Physical Exam - Physical Exam General Appearance: WD/WN, alert, no apparent distress EENT: No scleral icterus (R), No scleral icterus (L) Neck: normal inspection Respiratory: No respiratory distress Cardiac/Chest: regular rate, rhythm Abdomen: non-tender, soft, No distended Skin: normal color, warm/dry Extremities: No pedal edema Neuro/Psych: no motor/sensory deficits, alert, normal mood/affect, oriented x 3 ICD10 Worksheet Patient Problems: Problems Problem Status Onset Postoperative atrial fibrillation Acute S/P AVR (aortic valve replacement) Acute Shortness of breath Acute S/P aneurysm repair Acute 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
[2017-03-21] MEDS: traMADol 50 MG TAB PO PRN ×2 (07:36→14:24)
--- NOTE | 2017-03-21 09:46 | SOAPPROG ---
SOAP Progress Note Assessment/Plan: E&M for HIT * Heparin Induced Thrombocytopenia: Based on exposure and re-exposure, timing of drop, clot, and overall drop, she was intermediate risk for HIT on 4T, which confirms diagnosis. Continue agatroban. Once platelets start to rise and get > 100K, then can add warfarin. Will need to be on warfarin minimum 3 months just for this issue alone; possibly longer with other medical issues. She is to go no further heparin. Would only transfuse platelets if bleeding. * Acute post-operative severe AI with CHF secondary to thrombosed malfunctioning bioprosthetic valve s/p bioprosthetic aortic root replacement and re-replacement of ascending aorta, POD#3. POD #13 AVR with ascending aortic replacement, drainage hemopericardium, AtriClip SHORTY * Multifactorial anemia: ok to transfuse PRBC as clinically indicated. With thrombocytopenia and coagulopathy, would avoid platelet transfusion unless bleeding. * Paroxysmal atrial fibrillation: on amiodarone; once HIT controlled will start warfarin for thromboprophylaxis, duration pending stability of rhythm but minimum of 3 months. Subjective: Very fatigued even with minimal activity. No bleeding. Still with pain in chest but unchanged. No bleeding. Objective: Vital Signs Temp Pulse Resp BP Pulse Ox 36.8 C 68 14 125/73 H 96 03/21/17 04:00 03/21/17 08:00 03/21/17 08:00 03/21/17 08:00 03/21/17 08:00 Laboratory Results 03/21/17 04:35 03/21/17 04:35 03/20/17 03/21/17 03/22/17 05:59 05:59 05:59 Intake Total 2041 1834 Output Total 2230 2210 300 Balance -189 -376 -300 PT 25.7 SEC (12.0-15.0) H 03/21/17 04:35 INR 2.32 (0.83-1.16) H 03/21/17 04:35 Laboratory Tests 03/19/17 03/20/17 03/21/17 03:55 05:20 04:35 WBC 19.49 H D 16.29 H 14.98 H Hgb 9.8 L 8.4 L 10.2 L Plt Count 38 L 41 L 38 L Physical Exam - Physical Exam General Appearance: no apparent distress Respiratory: lungs clear Cardiac/Chest: regular rate, rhythm, No edema Abdomen: soft Skin: No embolic lesions ICD10 Worksheet Patient Problems: Problems Problem Status Onset Postoperative atrial fibrillation Acute S/P AVR (aortic valve replacement) Acute Shortness of breath Acute S/P aneurysm repair Acute 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
[2017-03-21] MEDS ORDERED: ALTEPLASE 2 MG VIAL IVP PRN (09:52)
--- NOTE | 2017-03-21 10:03 | ASMTCMCOM ---
CM Note CM Note Notes: Spoke to patient and daughter about possible discharge needs. Patient lives alone, daughter lives nearby. Talked about SNF Rehab and HC services. Patient not interested in either at this time. Her feelings may change so revisit her later to make final decision. Date Signed: 03/21/2017 10:02 AM Electronically Signed By:Micheline Tucker LCSW
[2017-03-21] MEDS: PANTOPRAZOLE SODIUM 40 MG TAB PO SCH (10:06)
[2017-03-21] MEDS: POTASSIUM CL 20 MEQ TAB PO SCH (10:06)
[2017-03-21] MEDS: ASPIRIN 81 MG CHEWABLE TAB PO SCH (10:06)
[2017-03-21] MEDS: METOPROLOL TARTRATE 25 MG TAB PO SCH ×2 (10:07→21:53)
[2017-03-21] MEDS: AMIODARONE HCL 200 MG TAB PO SCH ×2 (10:07→21:54)
[2017-03-21] MEDS: SENNOSIDES/DOCUSATE SODIUM TAB PO SCH ×2 (10:08→21:54)
[2017-03-21] MEDS: OMEGA-3 FATTY ACIDS 1,000 MG CAP PO SCH (10:08)
--- NOTE | 2017-03-21 10:37 | ECHO ---
[id number] + + [address] : : [place] [address] : : [phone] + + Adult Echocardiographic Report + -+ :Name: PATRICK GAUTHIERDanny Date: 03/21/2017 07:58 AM : : Hospital Admission Number: [id number] Location: 25 0: :: 1945 Gender: Female Height: 66 in : :Age: 71 yrs Race: WH Weight: 159 lb : :Reason For Study: Eval Ao : : BSA: 1.8 meters2 : :History: Post AVR : + -+ MMode/2D Measurements & Calculations IVSd: 0.86 cm LVIDd: 4.2 cm FS: 45.5 % Ao root diam: 2.8 cm LVPWd: 0.99 cm LVIDs: 2.3 cm EDV(Teich): 77.1 ml ACS: 1.5 cm ESV(Teich): 17.6 ml EF(Teich): 77.2 % LVOT diam: 2.0 cm LVOT area: 3.1 cm2 Normal Measurement Values: + + :LVIDd (3.5-5.7cm) IVSd (0.6-1.1cm) LVPWd (0.6-1.1cm) Aortic Root (2.0-3.7cm)Left Atrium (1.5-4.0cm): :LV Vol(d) (76-115ml) LV Vol(s) (29-48ml) Ejec Fraction (50-65%)PV Colt (0.6- 1.2m/s) TV Colt (0.4-1.0m/s) : :MV E Colt (0.8-1.0m/s)MV A Colt (0.3-1.0m/s)LVOT Colt (0.7-1.2m/s) Asc Ao Colt ( 0.9-1.8m/s) : + + Doppler Measurements & Calculations MV E max colt: Ao V2 max: LV V1 max: MR max colt: 86.9 cm/sec 146.6 cm/sec 54.3 cm/sec 359.7 cm/sec MV A max colt: Ao max PG: LV V1 max PG: MR max P.4 cm/sec 8.6 mmHg 1.2 mmHg 51.8 mmHg MV E/A: 1.8 Ao mean PG: LV V1 mean P.8 mmHg 0.64 mmHg Ao V2 mean: LV V1 mean: 88.4 cm/sec 37.2 cm/sec Ao V2 VTI: 23.4 cm LV V1 VTI: 10.7 cm SUNDAR(I,D): 1.4 cm2 SUNDAR(V,D): 1.2 cm2 SV(LVOT): 33.7 ml PA V2 max: TR max colt: 54.3 cm/sec 222.6 cm/sec PA max PG: TR max P.2 mmHg 19.8 mmHg RAP systole: 10.0 mmHg RVSP(TR): 29.8 mmHg Left Ventricle The left ventricle is normal in size and function. There is normal left ventricular wall thickness. The left ventricular ejection fraction is normal. Ejection Fraction = 60%. Right Ventricle The right ventricle is normal in size and function. Atria The left atrial size is normal. Right atrial size is normal. Mitral Valve The mitral valve is normal in structure. There is no mitral valve stenosis. There is mild to moderate mitral regurgitation. Tricuspid Valve There is mild tricuspid regurgitation. Right ventricular systolic pressure is normal. Aortic Valve There is a bioprosthetic valve in the aortic position. It appears to sit and function normally. There is no aortic stenosis or insufficiency. Pulmonic Valve The pulmonic valve is not well visualized. There is no pulmonic valvular regurgitation. Great Vessels The aortic root is normal size. Pericardium/Pleural There is no pericardial effusion. Conclusion A complete two-dimensional transthoracic echocardiogram was performed (2D, M-mode, Doppler and color flow Doppler). 1. The left ventricle is normal in size and function. The Ejection Fraction = 60%. 2. The mitral valve is normal in structure. There is mild to moderate mitral regurgitation. 3. There is a bioprosthetic valve in the aortic position. It appears to sit and function normally. There is no aortic stenosis or insufficiency. 4. When compared to the 03/17/17 study. The aortic valve has been replaced. Final Reading Physician: Regis Clark MD electronically signed on 03/21/2017 10:36 AM Ordering Physician: Son Ponce Performed By: Gamaliel Alicea, CS
--- NOTE | 2017-03-21 11:02 | ASMTCMCOM ---
CM Note CM Note Notes: Patient's chest x-ray report sent to [facility]. Appointment date and time on 03/20/17 CM Note. Date Signed: 03/21/2017 11:01 AM Electronically Signed By:Micheline Tucker LCSW
--- NOTE | 2017-03-21 13:28 | PDINTPN ---
Gang Worker Progress Note Assessment/Plan: Assessment: S/P SVRx2; Hemodynamically stable, no murmur, on minimal DA. 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 Atrial fibrillation: Continues to be in AF. On amiodarone. Rate a bit high. PICC line occlusion: ? kinked vs thrombosed. Delerium: Likely due to sleep deprivation, ICU stay. Plan: Continue argatroban. Follow platelets and H/H. Increase activity as tolerated. Keep active/alert today, try to get sleep tonight. Melatonin scheduled, Sundar STRICKLANDN. 03/21/17 13:33 Subjective: Slept poorly last night due to polyuria. SOme delerium today. Pain control OK. No appetite. Objective: Vital Signs Temp Pulse Resp BP Pulse Ox 36.8 C 66 13 107/65 93 03/21/17 04:00 03/21/17 12:00 03/21/17 12:00 03/21/17 12:00 03/21/17 12:00 Laboratory Results 03/21/17 04:35 03/21/17 04:35 03/20/17 03/21/17 03/22/17 05:59 05:59 05:59 Intake Total 2041 1834 Output Total 2230 2210 300 Balance -189 -376 -300 PT 25.7 SEC (12.0-15.0) H 03/21/17 04:35 INR 2.32 (0.83-1.16) H 03/21/17 04:35 CXR: PICC line placed, pulled back compared to initial flouro. Chest otherwise unchanged, tiny left apical PTX unchanged. Images reviewed. 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
[2017-03-21] MEDS: SCOPOLAMINE HYDROBROMIDE 1 MG/3 DAYS PATCH TD SCH (13:32)
[2017-03-21] MEDS: PATCH REMOVAL 1 EA PATCH TD SCH (13:37)
[2017-03-21 18:47] LABS: PLATELET COUNT 33 10^3/uL (150-400)
[2017-03-21 18:48] LABS: PLATELET ESTIMATE DECREASED (ADEQ)
[2017-03-21] MEDS: ZOLPIDEM TARTRATE 5 MG TAB PO SCH (23:04)
[2017-03-21] MEDS: ACETAMINOPHEN 500 MG TAB PO PRN (23:08)
[2017-03-22] MEDS ORDERED: METOPROLOL TARTRATE 25 MG TAB PO SCH (03:15)
[2017-03-22] MEDS ORDERED: FUROSEMIDE 40 MG TAB PO SCH (03:15)
[2017-03-22] MEDS: METOPROLOL TARTRATE 25 MG TAB PO SCH ×3 (05:13→21:59)
[2017-03-22] MEDS: FUROSEMIDE 40 MG TAB PO SCH ×2 (05:13→10:44)
[2017-03-22 05:19] LABS: HEMATOCRIT 27.1 % (38.0-47.0); HEMOGLOBIN 9.2 g/dL (12.6-16.3); LIPEMIA HEMOLYSIS FLAG 90 (0-99); MEAN CELL HEMOGLOBIN 32.1 pg (27.9-34.1); MEAN CELL HEMOGLOBIN CONCENTR. 33.9 g/dL (32.4-36.7); MEAN CELL VOLUME 94.4 fL (81.5-99.8); PLATELET CLUMPS FLAG 20 (0-99); RED BLOOD CELL COUNT 2.87 10^6/uL (4.18-5.33); RED CELL DISTRIBUTION WIDTH 15.3 % (11.5-15.2)
[2017-03-22 05:20] LABS: PLATELET COUNT 36 10^3/uL (150-400)
[2017-03-22 05:35] LABS: INR 2.29 (0.83-1.16); PROTIME(PATIENT) 25.4 SEC (12.0-15.0)
[2017-03-22 05:36] LABS: ANION GAP 8 mEq/L (8-16); CALCIUM 8.2 mg/dL (8.5-10.4); CARBON DIOXIDE 24 mEq/l (22-31); CHLORIDE 100 mEq/L (97-110); GLOMERULAR FILTRATION RATE 55; GLUCOSE 96 mg/dL (70-100); POTASSIUM 3.9 mEq/L (3.5-5.2); SODIUM 132 mEq/L (134-144)
[2017-03-22 06:05] LABS: PLATELET ESTIMATE DECREASED (ADEQ)
[2017-03-22 06:21] LABS: APTT 64.9 SEC (23.0-38.0)
--- NOTE | 2017-03-22 06:54 | SOAPPROG ---
SOAP Progress Note Assessment/Plan: POD #4: Reoperation, explant #23 Magna bioprosthetic aortic valve, implant aortic root replacement with #23 freestyle bioprosthetic root, re-replacement ascending aorta with #22 graft, drainage b/l pleural effusions POD #14: AVR with ascending aortic replacement, drainage hemopericardium, AtriClip SHORTY Acute post-operative severe AI with acute diastolic CHF, stage IV, secondary to thrombosed malfunctioning bioprosthetic valve s/p bioprosthetic aortic root replacement and re-replacement of ascending aorta - All tube out, wires cut Acute blood loss anemia with thrombocytopenia and coagulopathy - Stable s/p 2 PRBC, 4 FFP, 1 platelet Heparin induced thrombocytopenia - Continue argatroban - Further mgmt as per hematology Paroxysmal atrial fibrillation - Continue amiodarone and beta-arash - Thromboprophylaxis with argatroban with eventual transition to Coumadin, duration as per HIT protocol Subjective: Feel weak. Hopeful to leave hospital soon. Objective: Vital Signs Temp Pulse Resp BP Pulse Ox 36.4 C 71 16 149/76 H 94 03/22/17 04:00 03/22/17 05:13 03/22/17 04:00 03/22/17 05:13 03/22/17 04:00 Laboratory Results 03/22/17 05:00 03/22/17 05:00 03/21/17 03/22/17 03/23/17 05:59 05:59 05:59 Intake Total 1834 1250 Output Total 2210 1575 Balance -376 -325 PT 25.4 SEC (12.0-15.0) H 03/22/17 05:00 INR 2.29 (0.83-1.16) H 03/22/17 05:00 Physical Exam - Physical Exam General Appearance: WD/WN, alert, no apparent distress EENT: No scleral icterus (R), No scleral icterus (L) Neck: normal inspection Respiratory: No respiratory distress Cardiac/Chest: regular rate, rhythm Abdomen: non-tender, soft, No distended Skin: normal color, warm/dry Extremities: pedal edema Neuro/Psych: no motor/sensory deficits, alert, normal mood/affect, oriented x 3 ICD10 Worksheet Patient Problems: Problems Problem Status Onset Postoperative atrial fibrillation Acute S/P AVR (aortic valve replacement) Acute Shortness of breath Acute S/P aneurysm repair Acute 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
[2017-03-22] MEDS: PANTOPRAZOLE SODIUM 40 MG TAB PO SCH (09:53)
[2017-03-22] MEDS: SENNOSIDES/DOCUSATE SODIUM TAB PO SCH ×3 (09:53→22:00)
[2017-03-22] MEDS: AMIODARONE HCL 200 MG TAB PO SCH ×2 (09:53→21:59)
[2017-03-22] MEDS: POTASSIUM CL 20 MEQ TAB PO SCH (09:53)
[2017-03-22] MEDS: OMEGA-3 FATTY ACIDS 1,000 MG CAP PO SCH ×2 (09:53→10:02)
[2017-03-22] MEDS: ASPIRIN 81 MG CHEWABLE TAB PO SCH (09:53)
--- NOTE | 2017-03-22 10:01 | PDINTPN ---
Industrial Seamstress Progress Note Assessment/Plan: Assessment: S/P SVRx2; Hemodynamically stable, no murmur. 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 Atrial fibrillation: Continues to be in AF. On PO amiodarone. Rate down PICC line occlusion: Resolved Delerium: Likely due to sleep deprivation, ICU stay. Improved today Plan: Continue argatroban. Follow platelets and H/H. Increase activity as tolerated. Keep active/alert today, try to get sleep tonight. Melatonin scheduled, tramadol PRN pain. Strongly encouraged PO. 03/22/17 11:02 03/22/17 11:04 Subjective: Sleep interrupted a few times last night to urinate and for nursing care, but less than the night before, overall slept better. Still feels tired. Pain OK. Poor appetite. Objective: Vital Signs Temp Pulse Resp BP Pulse Ox 37.1 C 65 15 112/68 91 L 03/22/17 07:49 03/22/17 07:49 03/22/17 07:49 03/22/17 07:49 03/22/17 07:49 Laboratory Results 03/22/17 05:00 03/22/17 05:00 03/21/17 03/22/17 03/23/17 05:59 05:59 05:59 Intake Total 1834 1250 Output Total 2210 1575 480 Balance -376 -325 -480 PT 25.4 SEC (12.0-15.0) H 03/22/17 05:00 INR 2.29 (0.83-1.16) H 03/22/17 05:00 CXR: Unchanged. Images reviewed. 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
--- NOTE | 2017-03-22 12:28 | SOAPPROG ---
SOAP Progress Note Assessment/Plan: E&M for HIT * Heparin Induced Thrombocytopenia: Based on heparin exposure and re-exposure, timing of drop, clot, and overall drop, she was intermediate risk for HIT on 4T and positive antibody confirms diagnosis. Continue agatroban. Once platelets start to rise and get >100K, then can add warfarin. Will need to be on warfarin minimum 3 months just for this issue alone; possibly longer with other medical issues. She is to go no further heparin. Would only transfuse platelets if bleeding. Resolution usually takes 7 days and usually takes 3-4 days for platelets to start to rise. First recognized and therapy started late /10. * Acute post-operative severe AI with CHF secondary to thrombosed malfunctioning bioprosthetic valve s/p bioprosthetic aortic root replacement and re-replacement of ascending aorta, POD#4. POD #14 AVR with ascending aortic replacement, drainage hemopericardium, AtriClip SHORTY * Multifactorial anemia: ok to transfuse PRBC as clinically indicated. Would avoid platelet transfusion unless bleeding. * Paroxysmal atrial fibrillation: on amiodarone; once HIT controlled will start warfarin for thromboprophylaxis, duration pending stability of rhythm but minimum of 3 months. Subjective: Still tired but denies bleeding. Some pain in chest under right breast which is unchanged. Objective: Vital Signs Temp Pulse Resp BP Pulse Ox 36.5 C 73 17 117/60 95 03/22/17 11:39 03/22/17 11:39 03/22/17 11:39 03/22/17 11:39 03/22/17 11:39 Laboratory Results 03/22/17 05:00 03/22/17 05:00 03/21/17 03/22/17 03/23/17 05:59 05:59 05:59 Intake Total 1834 1250 Output Total 2210 1575 880 Balance -376 -325 -880 PT 25.4 SEC (12.0-15.0) H 03/22/17 05:00 INR 2.29 (0.83-1.16) H 03/22/17 05:00 Laboratory Tests 03/20/17 03/21/17 03/22/17 05:20 04:35 05:00 WBC 16.29 H 14.98 H 13.71 H Hgb 8.4 L 10.2 L 9.2 L Plt Count 41 L 38 L 36 L Physical Exam - Physical Exam General Appearance: no apparent distress EENT: pharynx normal Respiratory: lungs clear Cardiac/Chest: regular rate, rhythm Skin: No embolic lesions ICD10 Worksheet Patient Problems: Problems Problem Status Onset 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
--- NOTE | 2017-03-22 16:46 | WOCRNPDOC ---
WOCRN Advanced Assessment Note - Skin Integrity Problem, Advanced Assess Right Lateral Hip Dressing Type: Allevyn Life Dressing Description: Intact Exudate Amount: Scant Exudate Color: Reddish/Yellow Exudate Characteristic(s): Serosanguinous Integumentary Issue Intervention: Visualized Under Dressing Lula Wound Tissue: Ecchymotic Lula Wound Swelling: None Wound Bed Color: Purple, Red Wound Bed Constitution: Smooth Tissue (partial-thickness, epithelium) Site Odor: None Site Measurement - Head-to-Toe Length X Width X Depth (cm): 0.3cmx0.4cmx0.1cm Pressure Injury Stage: Stage 2, Deep Tissue Injury (DTI) Pressure Injury Present on Admit: No (This injury was documented after surgery when patient returned to ICU.) Skin Integrity Problem Comment: This wound is an evolving suspected deep tissue injury that has opened medially revealing an area of partial-thickness tissue loss consistent w/ stage 2 pressure injury. Nursing advised to apply hydrogel wound gel to open area, and cover w/ an Allevyn Life. Because this site is now almost continuously without pressure, tissue injury will most likely remain confined to epithelium and should heal w/out significant interventions. Wound care will continue to monitor as site evolves, follwoing up with patient next Thursday 03/29. Right Lateral Thigh Pressure Injury Dressing Type: Allevyn Life Dressing Description: Intact Exudate Amount: None Exudate Characteristic(s): None Integumentary Issue Intervention: Visualized Under Dressing Lula Wound Tissue: Intact Lula Wound Swelling: None Wound Bed Color: Purple Pressure Injury Stage: Deep Tissue Injury (DTI) Pressure Injury Present on Admit: No (Noted after surgery when patient returned to ICU.) Skin Integrity Problem Comment: Linear ecchymosis noted along lateral lower R thigh, extending onto R knee, appearance consistent w/ suspected deep tissue injury. There has been no change to this injury since it was discovered by nursing after patient returned from OR. Will continue to monitor site as it evolves.
[2017-03-22 17:17] LABS: PLATELET COUNT 41 10^3/uL (150-400)
[2017-03-22 17:29] LABS: INR 1.99 (0.83-1.16); PROTIME(PATIENT) 22.7 SEC (12.0-15.0)
[2017-03-22 17:31] LABS: APTT 54.1 SEC (23.0-38.0)
[2017-03-22 17:49] LABS: PLATELET ESTIMATE DECREASED (ADEQ)
[2017-03-22] MEDS ORDERED: ZOLPIDEM TARTRATE 5 MG TAB PO SCH (21:00)
[2017-03-22] MEDS: ZOLPIDEM TARTRATE 5 MG TAB PO SCH (21:58)
[2017-03-22] MEDS: ACETAMINOPHEN 500 MG TAB PO PRN (21:58)
[2017-03-23] MEDS: ARGATROBAN 100 MG in NS 100 ML IV SCH (00:24)
[2017-03-23 04:48] LABS: INR 1.93 (0.83-1.16); PROTIME(PATIENT) 22.2 SEC (12.0-15.0)
[2017-03-23 04:49] LABS: APTT 61.6 SEC (23.0-38.0)
[2017-03-23 05:24] LABS: HEMATOCRIT 27.6 % (38.0-47.0); HEMOGLOBIN 9.1 g/dL (12.6-16.3); LIPEMIA HEMOLYSIS FLAG 80 (0-99); MEAN CELL HEMOGLOBIN 31.7 pg (27.9-34.1); MEAN CELL VOLUME 96.2 fL (81.5-99.8); PLATELET CLUMPS FLAG 10 (0-99); RED BLOOD CELL COUNT 2.87 10^6/uL (4.18-5.33); RED CELL DISTRIBUTION WIDTH 15.7 % (11.5-15.2)
[2017-03-23 05:27] LABS: PLATELET COUNT 42 10^3/uL (150-400)
[2017-03-23 05:28] LABS: POTASSIUM 3.6 mEq/L (3.5-5.2)
[2017-03-23 06:22] LABS: PLATELET ESTIMATE DECREASED (ADEQ)
[2017-03-23] MEDS ORDERED: POTASSIUM CL 20 MEQ TAB PO ONE ×2 (07:54→15:15)
--- NOTE | 2017-03-23 07:55 | SOAPPROG ---
SOAP Progress Note Assessment/Plan: POD #5: Reoperation, explant #23 Magna bioprosthetic aortic valve, implant aortic root replacement with #23 freestyle bioprosthetic root, re-replacement ascending aorta with #22 graft, drainage b/l pleural effusions POD #15: AVR with ascending aortic replacement, drainage hemopericardium, AtriClip SHORTY Acute post-operative severe AI with acute diastolic CHF, stage IV, secondary to thrombosed malfunctioning bioprosthetic valve s/p bioprosthetic aortic root replacement and re-replacement of ascending aorta - All tubes out, wires cut Acute blood loss anemia with thrombocytopenia and coagulopathy - Stable s/p 2 PRBC, 4 FFP, 1 platelet Heparin induced thrombocytopenia - Platelets trending higher. Continue argatroban until platelets > 100. Paroxysmal atrial fibrillation - Continue amiodarone and beta-arash - Thromboprophylaxis with argatroban with eventual transition to Coumadin, duration as per HIT protocol. Subjective: Some difficulty taking deep breaths. Pain well-controlled. Happy platelets are slightly higher. Objective: Vital Signs Temp Pulse Resp BP Pulse Ox 36.8 C 72 16 124/68 H 93 03/23/17 05:41 03/23/17 05:41 03/23/17 05:41 03/23/17 05:41 03/23/17 05:41 Laboratory Results 03/23/17 04:20 03/23/17 04:20 03/22/17 03/23/17 03/24/17 05:59 05:59 05:59 Intake Total 1250 226.4 Output Total 1575 1030 Balance -325 -803.6 PT 22.2 SEC (12.0-15.0) H 03/23/17 04:20 INR 1.93 (0.83-1.16) H 03/23/17 04:20 Physical Exam - Physical Exam General Appearance: WD/WN, alert, no apparent distress EENT: No scleral icterus (R), No scleral icterus (L) Neck: normal inspection Respiratory: No respiratory distress Cardiac/Chest: regular rate, rhythm Abdomen: non-tender, soft, No distended Skin: normal color, warm/dry Extremities: pedal edema Neuro/Psych: no motor/sensory deficits, alert, normal mood/affect, oriented x 3 ICD10 Worksheet Patient Problems: Problems Problem Status Onset 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
[2017-03-23] MEDS ORDERED: METOPROLOL TARTRATE 5 MG/5 ML INJ IVP ONE ×2 (09:01→09:39)
[2017-03-23] MEDS ORDERED: METOPROLOL TARTRATE 5 MG/5 ML INJ ONE (09:12)
[2017-03-23] MEDS: METOPROLOL TARTRATE 25 MG TAB PO SCH ×2 (09:32→22:07)
[2017-03-23] MEDS: ASPIRIN 81 MG CHEWABLE TAB PO SCH (09:32)
[2017-03-23] MEDS: PANTOPRAZOLE SODIUM 40 MG TAB PO SCH (09:32)
[2017-03-23] MEDS: AMIODARONE HCL 200 MG TAB PO SCH (09:32)
[2017-03-23] MEDS: FUROSEMIDE 40 MG TAB PO SCH (09:32)
[2017-03-23] MEDS: SENNOSIDES/DOCUSATE SODIUM TAB PO SCH ×2 (09:33→22:07)
[2017-03-23] MEDS: POTASSIUM CL 20 MEQ TAB PO SCH (09:33)
[2017-03-23] MEDS: OMEGA-3 FATTY ACIDS 1,000 MG CAP PO SCH (09:33)
[2017-03-23] MEDS ORDERED: AMIODARONE HCL 100 ML IV ONE (10:06)
[2017-03-23] MEDS ORDERED: ALBUMIN 5% 250 ML IV ONE (10:06)
[2017-03-23] MEDS ORDERED: ALBUMIN 5% 250 ML BOTTLE IV ONE (10:21)
[2017-03-23] MEDS ORDERED: AMIODARONE HCL 540 MG in D5W 300 ML IV SCH (13:29)
--- NOTE | 2017-03-23 13:43 | SOAPPROG ---
LAMBERT Progress Note Assessment/Plan: 1. PAF - Pt presents with A-fib in the post operative setting. She reports symptoms of intermittent palpitations and dyspnea with the A-fib. This am she went back into A-fib with borderline ventricular response. Will re-load with amiodarone IV to try and maintain NSR. Pt is anticoagulated with argatroban for her HIT. 2. AVR - Pt is POD #5 for AVR and aortic root. 3. HIT - Pt course complicated by the development on HIT. Subjective: + sternal pain felt great this am. Noted dyspnea with the onset of A-fib No orthopnea or PND up in chair limited ambulation Objective: Vital Signs Temp Pulse Resp BP Pulse Ox 36.6 C 112 H 18 101/67 95 03/23/17 11:07 03/23/17 12:46 03/23/17 11:07 03/23/17 12:46 03/23/17 11:07 Laboratory Results 03/23/17 04:20 03/23/17 04:20 03/22/17 03/23/17 03/24/17 05:59 05:59 05:59 Intake Total 1250 226.4 250 Output Total 1575 1030 Balance -325 -803.6 250 PT 22.2 SEC (12.0-15.0) H 03/23/17 04:20 INR 1.93 (0.83-1.16) H 03/23/17 04:20 Physical Exam - Physical Exam General Appearance: alert, mild distress Respiratory: other (CTA anteriorly) Cardiac/Chest: tachycardia, irregularly irregular Skin: other (echymosis) Neuro/Psych: oriented x 3 ICD10 Worksheet Patient Problems: Problems Problem Status Onset 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
--- NOTE | 2017-03-23 14:52 | SOAPPROG ---
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 Continue agatroban. Once platelets rise and get >100K, then can add warfarin. Will need to be on warfarin minimum 3 months just for this issue alone; possibly longer with other medical issues. She is to have no further heparin. Would only transfuse platelets if bleeding. Resolution usually takes 7 days and usually takes 3-4 days for platelets to start to rise. First recognized and therapy started late /10. She may be starting to rise but too little to tell. * Acute post-operative severe AI with CHF secondary to thrombosed malfunctioning bioprosthetic valve s/p bioprosthetic aortic root replacement and re-replacement of ascending aorta, POD#5. POD #15 AVR with ascending aortic replacement, drainage hemopericardium, AtriClip SHORTY * Multifactorial anemia: ok to transfuse PRBC as clinically indicated. Would avoid platelet transfusion unless bleeding. * Paroxysmal atrial fibrillation: on amiodarone; once HIT controlled will start warfarin for thromboprophylaxis, duration pending stability of rhythm but minimum of 3 months. I spoke with Dr. Clark Subjective: Feeling better. She is more awake/alert, sitting up in chair talking with Dr. Clark. No chest pain. No bleeding. 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
[2017-03-23] MEDS ORDERED: FUROSEMIDE 40 MG/4 ML VIAL IVP ONE (15:15)
[2017-03-23 17:30] LABS: INR 1.79 (0.83-1.16); PROTIME(PATIENT) 20.9 SEC (12.0-15.0)
[2017-03-23 17:32] LABS: APTT 55.7 SEC (23.0-38.0)
[2017-03-23 18:03] LABS: PLATELET COUNT 49 10^3/uL (150-400)
[2017-03-23 19:02] LABS: PLATELET ESTIMATE DECREASED (ADEQ)
[2017-03-23] MEDS: ACETAMINOPHEN 500 MG TAB PO PRN (22:06)
[2017-03-23] MEDS: ZOLPIDEM TARTRATE 5 MG TAB PO SCH (22:07)
[2017-03-24] MEDS: ARGATROBAN 100 MG in NS 100 ML IV SCH (04:21)
[2017-03-24 05:32] LABS: HEMATOCRIT 26.4 % (38.0-47.0); HEMOGLOBIN 8.6 g/dL (12.6-16.3); LIPEMIA HEMOLYSIS FLAG 80 (0-99); MEAN CELL HEMOGLOBIN 31.7 pg (27.9-34.1); MEAN CELL HEMOGLOBIN CONCENTR. 32.6 g/dL (32.4-36.7); MEAN CELL VOLUME 97.4 fL (81.5-99.8); PLATELET CLUMPS FLAG 0 (0-99); RED BLOOD CELL COUNT 2.71 10^6/uL (4.18-5.33); RED CELL DISTRIBUTION WIDTH 16.4 % (11.5-15.2)
[2017-03-24 05:39] LABS: PLATELET COUNT 46 10^3/uL (150-400)
[2017-03-24 05:47] LABS: INR 2.13 (0.83-1.16)
[2017-03-24 05:49] LABS: APTT 64.7 SEC (23.0-38.0)
[2017-03-24 05:59] LABS: POTASSIUM 3.4 mEq/L (3.5-5.2)
[2017-03-24 06:16] LABS: PLATELET ESTIMATE DECREASED (ADEQ)
[2017-03-24] MEDS ORDERED: AMIODARONE HCL 200 ML IV SCH (07:00)
[2017-03-24] MEDS ORDERED: MAGNESIUM SULF 1 GM/DEXTROSE 100 ML IV ONE (08:10)
--- NOTE | 2017-03-24 08:18 | SOAPPROG ---
SOAP Progress Note Assessment/Plan: Assessment: POD#6 Redo AVR/root/asc ao replacement with a 23 mm freestyle porcine root and 22 mm hemashield graft, drainage b/l pleural effusions POD#16 drainage hemopericardium, AVR 23 mm Magna bovine pericardial bioprosthesis, asc ao replacement 24 mm hemashield graft, AtriClip LLAA Aortic bioprosthetic valve failure - Acute severe AI with dCHF. Taken back to OR and found to have a thrombosed valve d/t KASSANDRA. Valve and ascending aorta replaced with a porcine root and dacron interposition graft. 3L bilateral pleural effusions drained. Stable early postop course. Tubes and wires out. Antithrombotic prophylaxis with Argatroban as directed by hematology. Acute expected blood loss anemia with KASSANDRA and coagulopathy - Stable s/p 2u PRBC , 4u FFP, 1u platelet. Precautionary venous US of legs neg for DVT. Platelet counts stable on Argatroban, but remain < 50. Paroxysmal atrial fibrillation - Controlled with dilt gtt preop. Postop resumption of IV amiodarone with adjunctive BB as allowed by BP. Cards following and managing antiarrhythmics. Coumadin for [id number] score of 3. Initiation once platelets > 100. Target INR 2-3. Duration TBD, min 3 mo. Plan: Cont metoprolol 25 mg BID. IV amio as per cards. Cont Argatroban. Cont Lasix 40 mg daily. Cont KCL 40 meq daily. Addtl K prn K < 3.8. Add 1 gm IV Mg x 1. 03/24/17 08:12 Subjective: Depressed today. Slept poorly d/t Afib, pump noise, and freq interruptions. Objective: Vital Signs Temp Pulse Resp BP Pulse Ox 36.8 C 72 20 118/66 92 03/24/17 07:30 03/24/17 07:30 03/24/17 07:30 03/24/17 07:30 03/24/17 07:30 Laboratory Results 03/24/17 05:10 03/24/17 05:10 03/23/17 03/24/17 03/25/17 05:59 05:59 05:59 Intake Total 226.4 1674.8 Output Total 1030 2400 200 Balance -803.6 -725.2 -200 PT 24.0 SEC (12.0-15.0) H 03/24/17 05:10 INR 2.13 (0.83-1.16) H 03/24/17 05:10 Back in SR late last noc. Holding SBP > 110. Min suppl O2 req. Adequate fluid balance, dropping 1 kg/day last 48h. +4 kg overall. Argatroban therapeutic. Platelet plateau in 40s range. Physical Exam - Physical Exam General Appearance: alert, no apparent distress Respiratory: crackles (left base, o/w CTA) Cardiac/Chest: regular rate, rhythm, other (Sternum grossly stable. Sternotomy CDI. 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
[2017-03-24] MEDS: SENNOSIDES/DOCUSATE SODIUM TAB PO SCH (08:31)
[2017-03-24] MEDS: FUROSEMIDE 40 MG TAB PO SCH (08:36)
[2017-03-24] MEDS: METOPROLOL TARTRATE 25 MG TAB PO SCH ×2 (08:36→21:59)
[2017-03-24] MEDS: ASPIRIN 81 MG CHEWABLE TAB PO SCH (08:36)
[2017-03-24] MEDS: PANTOPRAZOLE SODIUM 40 MG TAB PO SCH (08:37)
[2017-03-24] MEDS: OMEGA-3 FATTY ACIDS 1,000 MG CAP PO SCH (08:37)
[2017-03-24] MEDS: POTASSIUM CL 20 MEQ TAB PO SCH (08:44)
[2017-03-24] MEDS: PATCH REMOVAL 1 EA PATCH TD SCH (08:57)
[2017-03-24] MEDS ORDERED: POTASSIUM CL 20 MEQ TAB PO ONE (09:00)
[2017-03-24] MEDS ORDERED: SENNOSIDES/DOCUSATE SODIUM TAB PO PRN (09:28)
[2017-03-24] MEDS ORDERED: LOPERAMIDE HCL 2 MG CAP PO PRN (09:30)
--- NOTE | 2017-03-24 11:31 | SOAPPROG ---
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 Continue agatroban. Once platelets rise and get >100K, then can add warfarin and perhaps consider changing agatroban to fondaparinux. Will need to be on warfarin minimum 3 months just for HIT; possibly longer with other medical issues. She is to have no further heparin. Resolution usually takes 7 days and usually takes 3-4 days for platelets to start to rise. First recognized and therapy started late / 10. She seems to be starting to rise. * Acute post-operative severe AI with CHF secondary to thrombosed malfunctioning bioprosthetic valve s/p bioprosthetic aortic root replacement and re-replacement of ascending aorta, POD#6. POD #16 AVR with ascending aortic replacement, drainage hemopericardium, AtriClip SHORTY * Multifactorial anemia: ok to transfuse PRBC as clinically indicated. Would avoid platelet transfusion unless bleeding. * Paroxysmal atrial fibrillation: on amiodarone; once HIT controlled will start warfarin for thromboprophylaxis, duration pending stability of rhythm but minimum of 3 months. Subjective: Frustrated with long stay. No chest pain except and incision site, which is better. No bleeding. Mouth still bad taste and throat is sore. Objective: Vital Signs Temp Pulse Resp BP Pulse Ox 36.8 C 72 20 118/66 92 03/24/17 07:30 03/24/17 07:30 03/24/17 07:30 03/24/17 07:30 03/24/17 07:30 Laboratory Results 03/24/17 05:10 03/24/17 05:10 03/23/17 03/24/17 03/25/17 05:59 05:59 05:59 Intake Total 226.4 1674.8 Output Total 1030 2400 250 Balance -803.6 -725.2 -250 PT 24.0 SEC (12.0-15.0) H 03/24/17 05:10 INR 2.13 (0.83-1.16) H 03/24/17 05:10 Physical Exam - Physical Exam General Appearance: no apparent distress EENT: other (small amt thrush tongue and right soft pallate) Respiratory: lungs clear Cardiac/Chest: regular rate, rhythm ICD10 Worksheet Patient Problems: Problems Problem Status Onset 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
--- NOTE | 2017-03-24 17:34 | ASMTCMCOM ---
CM Note CM Note Notes: 03/24/2017 Case management note: Pt platelet count delaying d/c. Anticipate d/c early to mid week once platelet counts start climbing and coumadin started with INR in therapeutic range. Case Management d/c poc: Anticipating independent d/c when medically stable. Daughter is RN at [facility] and able to provide cares at home. Case Management to follow. Date Signed: 03/24/2017 05:33 PM Electronically Signed By:France Bales RN
--- NOTE | 2017-03-24 19:02 | SOAPPROG ---
SOAP Progress Note Assessment/Plan: 1. PAF - Pt presents with A-fib in the post operative setting. She reports symptoms of intermittent palpitations and dyspnea with the A-fib. On 03/23 she went into A-fib with borderline ventricular response. She was started on IV amiodarone and returned to NSR. Pt is anticoagulated with argatroban for her HIT. --> change amiodarone to PO --> Continue argatroban until plt >100, then change to coumadin 2. AVR - Pt is POD #5 for AVR and aortic root. 3. HIT - Pt course complicated by the development on HIT. Subjective: + sternal pain frustrated with slow recover No palpitations Objective: Vital Signs Temp Pulse Resp BP Pulse Ox 36.8 C 81 17 119/72 97 03/24/17 16:58 03/24/17 16:58 03/24/17 16:58 03/24/17 16:58 03/24/17 16:58 Laboratory Results 03/24/17 05:10 03/24/17 05:10 03/23/17 03/24/17 03/25/17 05:59 05:59 05:59 Intake Total 226.4 1674.8 652 Output Total 1030 2400 1150 Balance -803.6 -725.2 -498 PT 24.0 SEC (12.0-15.0) H 03/24/17 05:10 INR 2.13 (0.83-1.16) H 03/24/17 05:10 Physical Exam - Physical Exam General Appearance: alert, mild distress Respiratory: lungs clear Cardiac/Chest: regular rate, rhythm Extremities: pedal edema Neuro/Psych: alert ICD10 Worksheet Patient Problems: Problems Problem Status Onset 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
[2017-03-24] MEDS: ZOLPIDEM TARTRATE 5 MG TAB PO SCH (22:00)
[2017-03-24] MEDS: AMIODARONE HCL 200 MG TAB PO SCH (22:00)
[2017-03-24] MEDS: ACETAMINOPHEN 500 MG TAB PO PRN (22:06)
[2017-03-25 06:15] LABS: HEMOGLOBIN 8.7 g/dL (12.6-16.3); MEAN CELL HEMOGLOBIN 31.5 pg (27.9-34.1); MEAN CELL HEMOGLOBIN CONCENTR. 32.2 g/dL (32.4-36.7); MEAN CELL VOLUME 97.8 fL (81.5-99.8); RED BLOOD CELL COUNT 2.76 10^6/uL (4.18-5.33); RED CELL DISTRIBUTION WIDTH 16.4 % (11.5-15.2)
[2017-03-25 06:45] LABS: POTASSIUM 4.3 mEq/L (3.5-5.2)
--- NOTE | 2017-03-25 08:10 | SOAPPROG ---
SOAP Progress Note Assessment/Plan: Assessment: POD#7 Redo AVR/root/asc ao replacement with a 23 mm freestyle porcine root and 22 mm hemashield graft, drainage b/l pleural effusions POD#17 drainage hemopericardium, AVR 23 mm Magna bovine pericardial bioprosthesis, asc ao replacement 24 mm hemashield graft, AtriClip LLAA Aortic bioprosthetic valve failure - Acute severe AI with dCHF. Taken back to OR and found to have a thrombosed valve d/t KASSANDRA. Valve and ascending aorta replaced with a porcine root and dacron interposition graft. 3L bilateral pleural effusions drained. Stable early postop course. Diuresing well. Tubes and wires out. Antithrombotic prophylaxis with Argatroban as directed by hematology. Acute expected blood loss anemia with KASSANDRA and coagulopathy - Stable s/p 2u PRBC , 4u FFP, 1u platelet, Argatroban gtt. Precautionary US of legs neg for DVT. Platelet counts appear to be rising. Paroxysmal atrial fibrillation - Controlled with dilt gtt preop. Postop resumption of amiodarone with adjunctive BB as allowed by BP. Cards following and managing antiarrhythmics. Coumadin for [id number] score of 3. Initiation once platelets > 100. Target INR 2-3. Duration TBD, min 3 mo. Plan: Cont metoprolol 25 mg BID. Cont amio 200 mg BID. Cont Argatroban. Cont Lasix 40 mg daily. Cont KCL 40 meq daily. Inc activity as tolerated. 03/25/17 08:08 Subjective: Much better mood today. Showered. Slept well. Bowels firming up. Objective: Vital Signs Temp Pulse Resp BP Pulse Ox 36.9 C 77 20 117/66 95 03/25/17 07:33 03/25/17 07:33 03/25/17 07:33 03/25/17 07:33 03/25/17 07:33 Laboratory Results 03/25/17 06:01 03/25/17 06:01 03/24/17 03/25/17 03/26/17 05:59 05:59 05:59 Intake Total 1674.8 902 Output Total 2400 1550 Balance -725.2 -648 PT 24.0 SEC (12.0-15.0) H 03/24/17 05:10 INR 2.13 (0.83-1.16) H 03/24/17 05:10 Holding SR. Adequate fluid balance. K repleted. Plt count up. Physical Exam - Physical Exam General Appearance: alert, no apparent distress Respiratory: lungs clear Cardiac/Chest: regular rate, rhythm, other (Sternotomy healing well) Abdomen: non-tender, soft Skin: normal color, warm/dry Extremities: swelling (1+ dependent) ICD10 Worksheet Patient Problems: Problems Problem Status Onset 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
[2017-03-25] MEDS ORDERED: ZINC OXIDE 56.7 GM OINTTUBE TP PRN (09:19)
[2017-03-25] MEDS: AMIODARONE HCL 200 MG TAB PO SCH ×2 (09:32→22:22)
[2017-03-25] MEDS: METOPROLOL TARTRATE 25 MG TAB PO SCH ×2 (09:32→22:22)
[2017-03-25] MEDS: POTASSIUM CL 20 MEQ TAB PO SCH (09:32)
[2017-03-25] MEDS: ASPIRIN 81 MG CHEWABLE TAB PO SCH (09:32)
[2017-03-25] MEDS: PANTOPRAZOLE SODIUM 40 MG TAB PO SCH (09:32)
[2017-03-25] MEDS: FUROSEMIDE 40 MG TAB PO SCH (09:32)
--- NOTE | 2017-03-25 13:02 | SOAPPROG ---
SOAP Progress Note Assessment/Plan: Assessment/Plan: 1. Heparin Induced Thrombocytopenia intermediate risk for HIT on 4T criteria and positive antibody continue argatroban once plts >100,000, can add warfarin and consider changing to fondaparinux will need warfarin x 3mo minimum for HIT and possibly longer for other issues first recognized and therapy started on 03/19 plt continue to rise 2. Acute post-op severe AI w CHF 2/2 thrombosed malfunctioning bioprosthetic valve s/p bioprosthetic aortic root replacement and re-replacement of ascending aorta, POD#7. POD#17 AVR w ascending aortic replacement, drainage of hemopericardium, AtriClip SHORTY 3. Multifactorial anemia - ok to tx if indicated would avoid plts unless bleeding 4. P Afib - on amio once HIT controlled, start warfarin for thromboprophylaxis 03/25/17 12:57 Subjective: feeling a little better today denies bleeding denies SOB or CP Objective: Vital Signs Temp Pulse Resp BP Pulse Ox 37.2 C 65 14 102/54 L 93 03/25/17 11:49 03/25/17 11:49 03/25/17 11:49 03/25/17 11:49 03/25/17 11:49 Laboratory Results 03/25/17 06:01 03/25/17 06:01 03/24/17 03/25/17 03/26/17 05:59 05:59 05:59 Intake Total 1674.8 902 Output Total 2400 1550 100 Balance -725.2 -648 -100 PT 24.0 SEC (12.0-15.0) H 03/24/17 05:10 INR 2.13 (0.83-1.16) H 03/24/17 05:10 Gen - NAD HEENT - anicteric CV - RRR chest wound c/d/i Resp - clear bilaterally abd - soft, BS+ Ext - minimal bilateral edema ICD10 Worksheet Patient Problems: Problems Problem Status Onset 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
[2017-03-25] MEDS: ACETAMINOPHEN 500 MG TAB PO PRN ×2 (14:06→22:22)
--- NOTE | 2017-03-25 14:26 | SOAPPROG ---
LAMBERT Progress Note Assessment/Plan: Assessment: Plan: 03/25/17 14:24 no new c/o feeling better overall anxious to go home, bored afeb vss well perfused normal wob plts higher Plan home when doesn't require argatroban gtt. Coumadin to start when plts>100. d/ w pt and family Objective: Vital Signs Temp Pulse Resp BP Pulse Ox 37.2 C 65 14 102/54 L 93 03/25/17 11:49 03/25/17 11:49 03/25/17 11:49 03/25/17 11:49 03/25/17 11:49 Laboratory Results 03/25/17 06:01 03/25/17 06:01 03/24/17 03/25/17 03/26/17 05:59 05:59 05:59 Intake Total 1674.8 902 Output Total 2400 1550 100 Balance -725.2 -648 -100 PT 24.0 SEC (12.0-15.0) H 03/24/17 05:10 INR 2.13 (0.83-1.16) H 03/24/17 05:10 ICD10 Worksheet Patient Problems: Problems Problem Status Onset 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
[2017-03-25] MEDS: ZOLPIDEM TARTRATE 5 MG TAB PO SCH (22:22)
[2017-03-26] MEDS: ARGATROBAN 100 MG in NS 100 ML IV SCH (01:38)
[2017-03-26 06:02] LABS: INR 1.55 (0.83-1.16); PROTIME(PATIENT) 18.6 SEC (12.0-15.0)
[2017-03-26 06:40] LABS: APTT 52.7 SEC (23.0-38.0)
--- NOTE | 2017-03-26 08:10 | SOAPPROG ---
SOAP Progress Note Assessment/Plan: Assessment: POD#8 Redo AVR/root/asc ao replacement with a 23 mm freestyle porcine root and 22 mm hemashield graft, drainage b/l pleural effusions POD#18 drainage hemopericardium, AVR 23 mm Magna bovine pericardial bioprosthesis, asc ao replacement 24 mm hemashield graft, AtriClip LLAA Aortic bioprosthetic valve failure - Acute severe AI with dCHF. Taken back to OR and found to have a thrombosed valve d/t KASSANDRA. Valve and ascending aorta replaced with a porcine root and dacron interposition graft. 3L bilateral pleural effusions drained. Stable early postop course. Diuresing well. Tubes and wires out. Antithrombotic prophylaxis with Argatroban as directed by hematology. Acute expected blood loss anemia with KASSANDRA and coagulopathy - Stable s/p 2u PRBC , 4u FFP, 1u platelet, Argatroban gtt. Precautionary US of legs neg for DVT. Platelet counts appear to be rising. Anticipate transition to Arixtra and Coumadin as early as tomorrow. Paroxysmal atrial fibrillation - Controlled with dilt gtt preop. Postop resumption of amiodarone with adjunctive BB as allowed by BP. Cards following and managing antiarrhythmics. Coumadin for [id number] score of 3. Initiation once platelets > 100. Target INR 2-3. Duration TBD, min 3 mo. Plan: Cont RIJ QLC. Switch to peripheral IV when feasible. Cont metoprolol 25 mg BID. Consider inc to 37.5 mg BID if current BP trends cont. Cont amio 200 mg BID. Cont Argatroban. Cont Lasix 40 mg daily. Cont KCL 40 meq daily. F/U echo tomorrow as per cards request. 03/26/17 08:10 Subjective: Feels well. Encouraged that platelet counts rising. Knows CVC nearing replacement date and anxious to avoid PICC. Objective: Vital Signs Temp Pulse Resp BP Pulse Ox 37.1 C 82 18 132/79 H 94 03/26/17 07:19 03/26/17 07:19 03/26/17 07:19 03/26/17 07:19 03/26/17 07:19 Laboratory Results 03/26/17 05:27 03/25/17 06:01 0903/26/17 03/27/17 05:59 05:59 05:59 Intake Total 902 26.4 Output Total 1550 1900 Balance -648 -1873.6 PT 18.6 SEC (12.0-15.0) H 03/26/17 05:27 INR 1.55 (0.83-1.16) H 03/26/17 05:27 Holding SR. SBP trending upward. Adequate fluid balance. Plt cont to rise. Physical Exam - Physical Exam General Appearance: alert, no apparent distress Respiratory: lungs clear Cardiac/Chest: regular rate, rhythm, other (Sternum grossly stable. Sternotomy CDI.) Abdomen: non-tender, soft Skin: warm/dry Extremities: swelling (1+ dependent, Knee high TEDS), other ICD10 Worksheet Patient Problems: Problems Problem Status Onset 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
[2017-03-26] MEDS: POTASSIUM CL 20 MEQ TAB PO SCH (09:08)
[2017-03-26] MEDS: PANTOPRAZOLE SODIUM 40 MG TAB PO SCH (09:08)
[2017-03-26] MEDS: ASPIRIN 81 MG CHEWABLE TAB PO SCH (09:08)
[2017-03-26] MEDS: FUROSEMIDE 40 MG TAB PO SCH (09:09)
[2017-03-26] MEDS: AMIODARONE HCL 200 MG TAB PO SCH ×2 (09:09→20:51)
[2017-03-26] MEDS: METOPROLOL TARTRATE 25 MG TAB PO SCH ×2 (09:11→20:52)
--- NOTE | 2017-03-26 13:14 | SOAPPROG ---
SOAP Progress Note Assessment/Plan: Assessment/Plan: 1. Heparin Induced Thrombocytopenia intermediate risk for HIT on 4T criteria and positive antibody continue argatroban once plts >100,000, can add warfarin and consider changing to fondaparinux (7.5 mg SubQ daily) will need warfarin x 3mo minimum for HIT and possibly longer for other issues first recognized and therapy started on 03/19 plt continue to rise 2. Acute post-op severe AI w CHF 2/2 thrombosed malfunctioning bioprosthetic valve s/p bioprosthetic aortic root replacement and re-replacement of ascending aorta, POD#8. POD#18 AVR w ascending aortic replacement, drainage of hemopericardium, AtriClip SHORTY 3. Multifactorial anemia - ok to tx if indicated would avoid plts unless bleeding 4. P Afib - on amio once HIT controlled, start warfarin for thromboprophylaxis 03/25/17 12:57 03/26/17 13:10 03/26/17 13:14 Subjective: No acute events denies bleeding Objective: Vital Signs Temp Pulse Resp BP Pulse Ox 36.7 C 71 16 114/68 95 03/26/17 11:21 03/26/17 11:21 03/26/17 11:21 03/26/17 11:21 03/26/17 11:21 Laboratory Results 03/26/17 05:27 03/25/17 06:01 03/25/17 03/26/17 03/27/17 05:59 05:59 05:59 Intake Total 902 26.4 Output Total 1550 1900 1000 Balance -648 -1873.6 -1000 PT 18.6 SEC (12.0-15.0) H 03/26/17 05:27 INR 1.55 (0.83-1.16) H 03/26/17 05:27 Gen - NAD HEENT - anicteric CV - RRR, Systolic murmur Resp - CTA Abd - soft, BS+ Ext - 2-3+ LE edema ICD10 Worksheet Patient Problems: Problems Problem Status Onset 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
--- NOTE | 2017-03-26 14:41 | ASMTCMCOM ---
CM Note CM Note Notes: CM met w/ pt for dispo planning. Pt reports that she will talk to daughter to determine if she wants HC or not. Pt reports that she has a supportive family. Pt is hoping to go home independent. The goal is to increase her platelet up to 100, currently pts platelet is at 82. CM to follow. Date Signed: 03/26/2017 02:41 PM Electronically Signed By:JACKI Sandoval
[2017-03-26] MEDS: ACETAMINOPHEN 500 MG TAB PO PRN (15:55)
[2017-03-26] MEDS: ZOLPIDEM TARTRATE 5 MG TAB PO SCH ×2 (21:55→23:00)
[2017-03-27] MEDS: ACETAMINOPHEN 500 MG TAB PO PRN ×2 (01:54→21:16)
[2017-03-27 03:01] LABS: HEMATOCRIT 25.9 % (38.0-47.0); HEMOGLOBIN 8.2 g/dL (12.6-16.3); MEAN CELL HEMOGLOBIN 30.9 pg (27.9-34.1); MEAN CELL HEMOGLOBIN CONCENTR. 31.7 g/dL (32.4-36.7); MEAN CELL VOLUME 97.7 fL (81.5-99.8); RED BLOOD CELL COUNT 2.65 10^6/uL (4.18-5.33); RED CELL DISTRIBUTION WIDTH 15.5 % (11.5-15.2)
[2017-03-27 03:11] LABS: INR 1.53 (0.83-1.16); PROTIME(PATIENT) 18.4 SEC (12.0-15.0)
[2017-03-27 03:12] LABS: APTT 48.5 SEC (23.0-38.0)
[2017-03-27 03:39] LABS: ALANINE AMINOTRANSFERASE 51 IU/L (9-52); ALBUMIN 2.7 g/dL (3.5-5.0); ALKALINE PHOSPHATASE 75 IU/L (38-126); ANION GAP 9 mEq/L (8-16); ASPARTATE AMINOTRANSFERASE 23 IU/L (14-46); BILIRUBIN,TOTAL 0.7 mg/dL (0.1-1.4); CALCIUM 8.2 mg/dL (8.5-10.4); CARBON DIOXIDE 25 mEq/l (22-31); CHLORIDE 103 mEq/L (97-110); CREATININE 0.8 mg/dL (0.6-1.0); GLOMERULAR FILTRATION RATE > 60; GLUCOSE 100 mg/dL (70-100); POTASSIUM 3.8 mEq/L (3.5-5.2); SODIUM 137 mEq/L (134-144); TOTAL PROTEIN 4.8 g/dL (6.3-8.2)
[2017-03-27] MEDS ORDERED: AMIODARONE HCL 100 ML IV ONE (06:12)
[2017-03-27] MEDS ORDERED: POTASSIUM CL 20 MEQ TAB PO ONE ×2 (07:00→11:13)
--- NOTE | 2017-03-27 07:50 | SOAPPROG ---
<Ismael Jose - Last Filed: 03/27/17 08:46> SOAP Progress Note Assessment/Plan: POD #9: Reoperation, explant #23 Magna bioprosthetic aortic valve, implant aortic root replacement with #23 freestyle bioprosthetic root, re-replacement ascending aorta with #22 graft, drainage b/l pleural effusions POD #19: AVR with ascending aortic replacement, drainage hemopericardium, AtriClip SHORTY Acute post-operative severe AI with acute diastolic CHF, stage IV, secondary to thrombosed malfunctioning bioprosthetic valve s/p bioprosthetic aortic root replacement and re-replacement of ascending aorta - Follow-up ECHO this AM. Acute blood loss anemia with thrombocytopenia and coagulopathy - Stable Heparin induced thrombocytopenia - Platelets > 100. Fondaparinux to start today with Coumadin bridge. Paroxysmal atrial fibrillation - Continue amiodarone and beta-arash - Thromboprophylaxis with Fondaparinux and Coumadin bridge Subjective: Happy platelets are over 100. Legs and feel are still swollen. Looking forward to leaving the hospital. Objective: Vital Signs Temp Pulse Resp BP Pulse Ox 37.0 C 129 H 18 105/67 95 03/27/17 04:00 03/27/17 04:00 03/27/17 04:00 03/27/17 04:00 03/27/17 04:00 Laboratory Results 03/27/17 02:35 03/27/17 02:35 03/26/17 03/27/17 03/28/17 05:59 05:59 05:59 Intake Total 26.4 784 Output Total 1900 0 Balance -1873.6 -1266 PT 18.4 SEC (12.0-15.0) H 03/27/17 02:35 INR 1.53 (0.83-1.16) H 03/27/17 02:35 Physical Exam - Physical Exam General Appearance: alert, no apparent distress Neck: normal inspection Respiratory: No respiratory distress Cardiac/Chest: regular rate, rhythm, tachycardia, irregularly irregular Abdomen: non-tender, soft, No distended Skin: normal color, warm/dry Extremities: pedal edema Neuro/Psych: no motor/sensory deficits, alert, normal mood/affect, oriented x 3 ICD10 Worksheet Patient Problems: Problems Problem Status Onset Heparin-induced thrombocytopenia (HIT) Acute ~03/19/17 Postoperative atrial fibrillation Acute S/P AVR (aortic valve replacement) Acute S/P aneurysm repair Acute Shortness of breath Acute 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 <EshaLeah tucker Marco - Last Filed: 03/29/17 19:54> SOAP Progress Note Assessment/Plan: Patient seen and examined with Neil Jose PA-C. Agree with above A&P. Platelet count > 100, will start Coumadin. Echo reviewed - shows small pleural effusion, will obtain CXR to check quantity. Still quite edematous, though better - will give additional dose of Lasix today as well. Hopefully home in next 1-2 days. Objective: Vital Signs Temp Pulse Resp BP Pulse Ox 36.7 C 70 14 119/63 90 L 03/28/17 08:00 03/28/17 08:00 03/28/17 08:00 03/28/17 08:00 03/28/17 08:00 Laboratory Results 03/28/17 05:35 03/27/17 02:35 03/28/17 03/29/17 03/30/17 05:59 05:59 05:59 Intake Total 1000 Output Total 4150 Balance -3150 PT 14.8 SEC (12.0-15.0) 03/28/17 05:35 INR 1.16 (0.83-1.16) 03/28/17 05:35
[2017-03-27] MEDS: POTASSIUM CL 20 MEQ TAB PO SCH (08:30)
[2017-03-27] MEDS: METOPROLOL TARTRATE 50 MG TAB PO SCH ×2 (08:56→21:14)
[2017-03-27] MEDS: PANTOPRAZOLE SODIUM 40 MG TAB PO SCH (08:56)
[2017-03-27] MEDS: FUROSEMIDE 40 MG TAB PO SCH (08:57)
[2017-03-27] MEDS: ASPIRIN 81 MG CHEWABLE TAB PO SCH (08:57)
[2017-03-27] MEDS: AMIODARONE HCL 200 MG TAB PO SCH ×2 (08:57→21:14)
[2017-03-27] MEDS ORDERED: METOPROLOL TARTRATE 25 MG TAB PO SCH (09:00)
[2017-03-27] MEDS: FONDAPARINUX SODIUM 7.5 MG/0.6 ML SYR SC SCH (09:01)
--- NOTE | 2017-03-27 10:00 | ECHO ---
[id number] + + [address] : : [place] [address] : : [phone] + + Adult Echocardiographic Report + -+ :Name: PATRICK GAUTHIERDanny Date: 03/27/2017 08:35 AM BP: 105/67 mmHg : : Hospital Admission Number: [id number] Location: 22 3: :: 1945 Gender: Female Height: 66 in : :Age: 71 yrs Race: WH Weight: 155 lb : :Reason For Study: S/P redo AVR #23 Medtronic freestyle : :porcine and AO root BSA: 1.8 meters2 : :History: S/P AVR times 2 : + -+ MMode/2D Measurements & Calculations IVSd: 1.2 cm LVIDd: 3.9 cm FS: 29.3 % Ao root diam: 3.4 cm LVPWd: 1.2 cm LVIDs: 2.8 cm EDV(Teich): 65.9 ml ESV(Teich): 28.4 ml EF(Teich): 56.8 % Normal Measurement Values: + + :LVIDd (3.5-5.7cm) IVSd (0.6-1.1cm) LVPWd (0.6-1.1cm) Aortic Root (2.0-3.7cm)Left Atrium (1.5-4.0cm): :LV Vol(d) (76-115ml) LV Vol(s) (29-48ml) Ejec Fraction (50-65%)PV Colt (0.6- 1.2m/s) TV Colt (0.4-1.0m/s) : :MV E Colt (0.8-1.0m/s)MV A Colt (0.3-1.0m/s)LVOT Colt (0.7-1.2m/s) Asc Ao Colt ( 0.9-1.8m/s) : + + Doppler Measurements & Calculations MV E max colt: Ao V2 max: LV V1 mean PG: PA V2 max: 75.5 cm/sec 162.0 cm/sec 1.7 mmHg 88.9 cm/sec Ao max PG: LV V1 mean: PA max P.6 mmHg 58.8 cm/sec 3.2 mmHg Ao mean PG: LV V1 VTI: 15.9 cm 5.9 mmHg Ao V2 mean: 109.4 cm/sec Ao V2 VTI: 23.7 cm TR max colt: 202.0 cm/sec TR max P.6 mmHg RAP systole: 5.0 mmHg RVSP(TR): 21.6 mmHg Left Ventricle The left ventricle is normal in size and function. There is mild to moderate concentric left ventricular hypertrophy. Ejection Fraction = 60-65%. Septal motion is consistent with post-operative state. Right Ventricle The right ventricle is normal in size and function. Atria The left atrial size is normal. Right atrial size is normal. Mitral Valve The mitral valve leaflets appear thickened, but open well. There is no mitral valve stenosis. There is mild mitral regurgitation. Tricuspid Valve The tricuspid valve is normal in structure and function. There is no tricuspid stenosis. There is mild tricuspid regurgitation. Right ventricular systolic pressure is 22mmHg. Aortic Valve S/P AVR redo; #23 Medtronic freestyle porcine AVR. There is no aortic insufficiency. The gradient is normal for this prosthetic aortic valve. Pulmonic Valve The pulmonic valve is normal in structure and function. There is no pulmonic valvular regurgitation. Great Vessels S/P aortic root graft. Pericardium/Pleural There is no pericardial effusion. There is a moderate pleural effusion. Conclusion A two-dimensional transthoracic echocardiogram with M-mode and Doppler was performed. Technically difficult apical window. Rhythm is rapid atrial fibrillation. The left ventricle is normal in size and function. There is mild to moderate concentric left ventricular hypertrophy. Ejection Fraction = 60-65%. There is mild mitral regurgitation. There is mild tricuspid regurgitation. Right ventricular systolic pressure is 22mmHg. S/P AVR redo; #23 Medtronic freestyle porcine AVR. The gradient is normal for this prosthetic aortic valve. There is a moderate pleural effusion. Final Reading Physician: Liz Yarbrough signed on 03/27/2017 09:59 AM Ordering Physician: Viri Bell Performed By: Dianne Amador
[2017-03-27] MEDS ORDERED: FUROSEMIDE 40 MG/4 ML VIAL IVP ONE (11:13)
--- NOTE | 2017-03-27 13:08 | SOAPPROG ---
LAMBERT Progress Note Assessment/Plan: Assessment: 1) HIT 2) AI s/p AVR 3) A fib 4) Post op anemia Plan: Platelets now > 100k. Fondiparinox has been started at 7.5 mg daily. Warfarin also started. She is ok for d/c from a hematology standpoint. Will arrange follow up with Dr. Estes in [place] for warfarin management. Plan to d/c Fondiparinox on INR > 2. 03/27/17 13:05 03/27/17 13:06 03/27/17 13:09 Subjective: Feels well. No bleeding or abnormal bruising. Objective: Vital Signs Temp Pulse Resp BP Pulse Ox 37.0 C 119 H 17 97/74 L 95 03/27/17 04:00 03/27/17 09:16 03/27/17 09:16 03/27/17 09:07 03/27/17 09:16 Laboratory Results 03/27/17 02:35 03/27/17 02:35 03/26/17 03/27/17 03/28/17 05:59 05:59 05:59 Intake Total 26.4 784 400 Output Total 1900 2049 1500 Balance -1873.6 -1266 -1100 PT 18.4 SEC (12.0-15.0) H 03/27/17 02:35 INR 1.53 (0.83-1.16) H 03/27/17 02:35 - Time Spent With Patient Time Spent With Patient: 16 minutes Physical Exam - Physical Exam General Appearance: alert, no apparent distress EENT: PERRL/EOMI Respiratory: lungs clear Cardiac/Chest: regular rate, rhythm Extremities: other (No signs or symptoms of DVT or thrombosis) Neuro/Psych: alert, normal mood/affect ICD10 Worksheet Patient Problems: Problems Problem Status Onset 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
[2017-03-27] MEDS ORDERED: WARFARIN SODIUM 5 MG TAB PO ONE (16:00)
--- NOTE | 2017-03-27 16:00 | ASMTCMCOM ---
CM Note CM Note Notes: Pt's platelets are up. Pt willl likely DC soon. C/M will check with pt and dtr before DC about HC. Date Signed: 03/27/2017 04:00 PM Electronically Signed By:Siomara Cotto LCSW
[2017-03-27] MEDS: ZOLPIDEM TARTRATE 5 MG TAB PO SCH (21:15)
[2017-03-28 05:36] VITALS: TEMP 98.1
[2017-03-28 06:02] LABS: INR 1.16 (0.83-1.16); PROTIME(PATIENT) 14.8 SEC (12.0-15.0)
[2017-03-28 08:26] VITALS: BP 119/63; PULSE 70; RESP 14; O2SAT 90
--- NOTE | 2017-03-28 08:27 | SOAPPROG ---
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 Taken back to OR and found to have a thrombosed valve d/t KASSANDRA. Valve and ascending aorta replaced with a porcine root and dacron interposition graft. 3L bilateral pleural effusions drained. Stable early postop course. Diuresing well. Tubes and wires out. Antithrombotic prophylaxis with as per hematology. Acute expected blood loss anemia with KASSANDRA and coagulopathy - Stable s/p 2u PRBC , 4u FFP, 1u platelet. Precautionary US of legs neg for DVT. Steady platelet rise on Argatroban. Transitioned to Arixtra and Coumadin yest. Plan Arixtra bridge until INR > 2. Target INR 2-3. Duration TBD, min 3 mo. Outpt anticoag management per hematology (Franklyn). Paroxysmal atrial fibrillation - Controlled with dilt gtt preop. Postop resumption of amiodarone with adjunctive BB as allowed by BP. Cards following and managing antiarrhythmics. Coumadin for [id number] score of 3. Parameters as per hematology. Plan: Ok for discharge. Home care vs self-care after discussion with daughter (nurse). Instructions re diet, meds, activity, f/u and wound care to be reviewed in presence of daughter. 03/28/17 08:20 Subjective: Feels fine. Slept well. Excited about leaving hospital. Objective: Vital Signs Temp Pulse Resp BP Pulse Ox 36.7 C 73 17 113/66 88 L 03/28/17 04:00 03/28/17 04:00 03/28/17 04:00 03/28/17 04:00 03/28/17 04:00 Laboratory Results 03/28/17 05:35 03/27/17 02:35 03/27/17 03/28/17 03/29/17 05:59 05:59 05:59 Intake Total 784 1000 Output Total 0 4150 Balance -1266 -3150 PT 14.8 SEC (12.0-15.0) 03/28/17 05:35 INR 1.16 (0.83-1.16) 03/28/17 05:35 Sinus rhythm since yest morning. Tolerating inc BB dose well. Excellent diuresis on IV lasix. 3 kg below admit wt. Plt cont to rise. INR yet to budge. Physical Exam - Physical Exam General Appearance: alert, no apparent distress Respiratory: lungs clear Cardiac/Chest: regular rate, rhythm, other (Sternum grossly stable. 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
[2017-03-28] MEDS: POTASSIUM CL 20 MEQ TAB PO SCH (08:50)
[2017-03-28] MEDS: FUROSEMIDE 40 MG TAB PO SCH (08:52)
[2017-03-28] MEDS: PANTOPRAZOLE SODIUM 40 MG TAB PO SCH (08:52)
[2017-03-28] MEDS: FONDAPARINUX SODIUM 7.5 MG/0.6 ML SYR SC SCH (08:52)
[2017-03-28] MEDS ORDERED: ASPIRIN EC 81 MG TAB PO SCH (09:00)
[2017-03-28] MEDS ORDERED: MAGNESIUM OXIDE 400 MG TAB PO SCH (09:00)
[2017-03-28] MEDS ORDERED: METOPROLOL TARTRATE 50 MG TAB PO SCH (09:00)
[2017-03-28] MEDS ORDERED: MULTIVITAMINS 1 EACH TAB PO SCH (09:00)
[2017-03-28] MEDS ORDERED: ACETAMINOPHEN 500 MG TAB PO PRN (09:00)
[2017-03-28] MEDS ORDERED: AMIODARONE HCL 200 MG TAB PO SCH (09:00)
--- NOTE | 2017-03-28 14:57 | PDIAF ---
- Diagnosis Diagnosis: PAF, prosthetic valve failure/thrombosis d/t HIT s/p redo tissue AVR Code Status: Full Code - Medication Management Discharge Medications: Medications to Continue on Transfer Multivitamins [Multivitamin (*)] 1 each PO DAILY #0 03/08/17 [Last Taken ] [place]-3 Fatty Acids [Fish Oil 1000 mg (*)] 1 cap PO DAILY #0 03/08/17 [Last Taken 03/09/17] Metoprolol Tartrate [Lopressor 50 mg (*)] 50 mg PO BID #60 tab 03/15/17 [Last Taken 03/16/17 07:00] traMADol [Ultram 50 mg (*)] 50 mg PO Q8HRS PRN #20 tab 03/15/17 [Last Taken 10/24] Zolpidem Tartrate [Ambien 5MG (*)] 5 mg PO HS PRN 03/16/17 [Last Taken 03/13/17] Acetaminophen [Tylenol ES 500 mg (*)] 500 - 1,000 mg PO Q6HRS PRN #0 03/28/17 [ Last Taken 03/16/17] Amiodarone HCl [Pacerone (*)] 200 mg PO BID #34 tab 03/28/17 [Last Taken 07:00] Aspirin EC [Aspirin EC 81 mg (*)] 81 mg PO DAILY #0 03/28/17 [Last Taken ] Fondaparinux Sodium [Arixtra 7.5 MG (*)] 7.5 mg SC DAILY #5 syr 03/28/17 [Last Taken Unknown] Furosemide [Lasix 40 MG (*)] 40 mg PO DAILY #30 tab 03/28/17 [Last Taken Unknown ] Magnesium Oxide [Magnesium Oxide 400 mg (*)] 400 mg PO DAILY #30 tab 03/28/17 [ Last Taken Unknown] Potassium Cl [Klor-Con 20 meq (*)] 40 meq PO DAILY #30 tab 03/28/17 [Last Taken Unknown] Warfarin Sodium [Coumadin 2.5MG (*)] 2.5 mg PO DAILY AT 4PM #50 tab 03/28/17 [ Last Taken 03/15/17] Zinc Oxide [Zinc Oxide Ointment (*)] 1 db TP QID PRN ointment tube 03/28/17 [ Last Taken Unknown] Discharge Medications: Refer to the Discharge Home Medication list for PRN reason. PICC Care - Routine: N/A - Orders Services needed: Registered Nurse (daily x 5 days beginning 03/29; cardiorespiratory monitoring, therapeutic drug monitoring, daily injection ), Physical Therapy (x2 this Mon, Mon; anticipate outpt cardiac rehab next week) Diet Recommendation: sodium restricted (2,000 mg daily), fluid restriction (use comment for amount) (2 qts daily until off lasix) Diet Texture: Regular Texture Diet Weigh Patient: daily Sheldon Stockings Discontinue Date: wear during day, ok to remove at night Wound Care Instructions: Daily soap and water. Avoid ointments until scabs off. Avoid underwater immersion until scabs off Activity/Weight Bearing Restrictions: Sternal precautions x 3 more weeks. Avoid push/pull activites. Avoid lifting > 10 lbs with an outstretched arm Additional: Accept episodic Afib if rate controlled (ie. 55-120) and SBP > 90. Call [facility] (Kris) for sustained HR > 130 or < 55; SBP < 90 or > 140; wt gain > 2 lbs overnight, absolute wt gain > 5 lbs or worsening swelling; pulse ox < 89%; any wound concerns. Call hematology (Franklyn) for anticoagulation management - Labs/Radiology BMP Date: 04/11/17 (prior to surgical appt) CBC Date: 04/11/17 (prior to surgical appt) PT/INR Date: 03/30/17 (results to Dr Estes) Imaging Orders: CXR prior to surgical appointment - Follow Up Care Current Providers and Referrals: Karissa Estes MD [Medical Doctor] - 1-2 days (management of anticoagulation) Son Ponce DO [Doctor of Osteopathy] - 04/11/17 10:00 am Regis Clark MD [Medical Doctor] - follow up as scheduled ([facility])
--- NOTE | 2017-03-28 15:42 | ASMTCMCOM ---
CM Note CM Note Notes: Case management arranged cork insulator and PT through [facility]. RN daily for 5 days starting 03/29; PT x 2 Mon and Mon. Pt to start cardiac rehab as directed by MD anticipate starting next week. Daughter to take pt home today. Case Management d/c poc: Home with [facility] home care and family support. Date Signed: 03/28/2017 03:41 PM Electronically Signed By:France Bales RN
[2017-03-28] MEDS ORDERED: WARFARIN SODIUM 7.5 MG TAB PO ONE (16:00)
--- NOTE | 2017-03-28 16:32 | PDDCSUM ---
Discharge Summary Discharge Summary: DATE OF ADMISSION: 03/16/17 DATE OF DISCHARGE: 03/28/17 DISPOSITION: Home with home healthcare, RN daily x 5 days and PT every other day thru 03/31 PRINCIPAL ADMISSION DIAGNOSIS: Symptomatic rapid atrial fibrillation PRINCIPAL DISCHARGE DIAGNOSES: 1. Heparin induced thrombocytopenia with thrombosis 2. 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 Acute on chronic diastolic congestive heart failure 4. Status post redo aortic valve replacement with a porcine root 5. Status post redo ascending aortic replacement with a smaller diameter dacron interposition graft 6. Acute expected blood loss anemia 7. Recurrent paroxysmal atrial fibrillation HISTORY OF PRESENT ILLNESS: 71 yo female admitted the day after discharge of hospitalization for cardiac surgery for further evaluation and treatment of tachycardia with altered mental status. CVA ruled out. Found to be in rapid atrial fibrillation with relative hypotension and decompensated dCHF. Medically stabilized with fluid resuscitation and chemical cardioversion with IV diltiazem and amiodarone. Echo neg for pericardial effusion but concerning for AI. Repeat echo suggestive of severe AI, and as platelet count also unexpectedly low, paravalvular leak with hemolysis suspected. Taken urgently back to the OR for exploration. PERTINENT PAST MEDICAL HISTORY: 1. Severe with enlarged ascending aorta s/p AVR with a 23 mm bovine pericardial bioprosthesis, ascending aortic replacement with a 24 mm dacron interposition graft, and prophylactic AtriClip ligation of the left atrial appendage on 03/08/17. Admission complicated by PAF with difficult rate control. 2. Postop blood loss anemia with thrombocytopenia - No blood or blood products transfused. Platelets seemingly rebounding by serial checks. 3. Valvular cardiomyopathy with class II dCHF 4. Migraine auras MEDICATIONS ON ADMISSION: ASA 81 mg daily, Amiodarone 200 mg BID, Metoprolol tartrate 50 mg BID, MVI daily , Fish Oil 1,000 mg daily, Tylenol 500-1,000 mg q6h prn incisional discomfort, Ultram 50 mg q8h prn breakthrough incisional discomfort, Ambien 2.5-5 mg HS prn ALLERGIES/SENSITIVITIES: 1. Heparin causing heparin induced thrombocytopenia with thrombosis 2. PCN and amoxicillin causing severe nausea CONSULTANTS: Cardiology (Bal), CV surgery (Kris), Pulmonology/critical care (Brijesh), Hematology (Heidy) PROCEDURES/IMAGIN/[address]: senescent changes, no acute findings. 03/16 ([facility]by): Limited transthoracic echocardiogram: Rhythm rapid AF. Small LV cavity. Moderate concentric LVH. Nl LVEF. Mild to moderate AI. No pericardial effusion. Large pleural effusion. 03/17 (Selby): Limited transthoracic echocardiogram: Nl LV cavity size and systolic fx. Severe AI. Moderate MR. Large pleural effusion. 03/18 ([facility]ris): Redo aortic valve replacement. Thrombosed bioprosthetic valve explanted and 23 mm Medtronic Freestyle porcine root implanted. Redo ascending aortic replacement with a 22 mm Hemashield graft. Evacuation of large bilateral pleural effusions. 03/19 Bilateral lower extremity venous duplex ultrasound: normal, no venous thrombosis identified. 03/21 ([facility]): RUE PICC. 03/21 ([facility]): RUE PICC exchange. 03/21 ([facility]): Transthoracic echocardiogram: Nl BiV cavity size and systolic fx. Nl atrial size. Nl bioprosthetic AV fx. Mild to moderate MR. Mild TR. Nl RVSP. 03/27 ([facility]): Transthoracic echocardiogram: Mild to moderate concentric LVH. LVEF 60-65%. Nl atrial size. Nl bioprosthetic AV fx. Mild MR. Mild TR. Nl RVSP. ABBREVIATED HOSPITAL COURSE BY ACTIVE PROBLEM LIST: 1. 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 Taken back to OR and found to have a thrombosed valve. Etiology KASSANDRA after precautionary preop HIT Ab returned as positive. Valve and ascending aorta replaced with a porcine root and suitably sized dacron interposition graft. Hemodynamically stable early postop course. Serial echos negative for recurrent valvular dysfx. Antithrombotic prophylaxis as directed by hematology. 2. Decompensated dCHF - with bilateral pleural effusions. Exacerbated by rapid AF and AI. 3L bilateral pleural effusions drained intraop. Moderate volume overload gradually diuresed. Insufficient BP on BB for CCB or ACEI. 3. Acute expected blood loss anemia with KASSANDRA and coagulopathy - Stable s/p 3u PRBC, 4u FFP, and 1u platelet. Precautionary US of legs neg for DVT. Started on Argatroban with appropriate rise in platelet counts. Transitioned to Arixtra and Coumadin. Plan Arixtra bridge until INR > 2. Target INR 2-3. Duration TBD, min 3 mo. Outpt anticoagulation management per hematology (Franklyn). 4. Paroxysmal atrial fibrillation - Episodic postop. Reloaded with IV amiodarone. BB escalated as tolerated. Coumadin for [id number] score of 3. Parameters as per hematology. DISCHARGE CLINICAL INFORMATION: Sternum grossly stable. Sternotomy CDI, sutured, +Dermabond. HR 70s. SBP 110s. SpO2 > 90% RA. Wt 8.6 kg below admission at 74.8 kilos. WBC 8, Hgb 8.2, HCT 25.9, Plt 140, Na 137, K 3.8, Cr 0.8, Mg 1.6 Coumadin flow sheet: Date INR mg 03/27 1.53 (on argatroban) 5 03/28 1.16 7.5 DISCHARGE MEDICATIONS: As on admission with the following adjustments: Increase Coumadin to 5 mg daily NEW prescriptions: 1. Arixtra 7.5 mg SQ daily until INR > 2 2. Lasix 40 mg daily 3. KlorCon 40 meq daily with lasix 4. Magnesium oxide 400 mg daily with lasix 5. Zinc oxide ointment 1 db TP 4x daily to buttocks prn maceration FOLLOW UP APPOINTMENTS: 1. CV surgery: with Dr Ponce at [facility] on 04/11 at 10am. 2. Cardiology: with Dr Selby or Dr Clark at [facility] within 6 weeks. Appointment to be established during surgical visit. 3. Hematology: with Dr Estes at [facility] as directed. Followup HIT and management anticoagulation. FOLLOW UP TESTIN. INR on 03/30. Results to Dr Estes. 2. CXR, CBC, BMP prior to surgical appointment.
--- NOTE | 2017-03-28 17:11 | ASDISCHSUM ---
Discharge Information Plan Status:Home with Home Health Medically Cleared to Leave:03/28/2017 Discharge Date:03/28/2017 03:56 PM CM D/C Disposition:Home Health Service ADT D/C Disposition:Home Health Service Projected Discharge Date:03/28/2017 12:00 AM Transportation at D/C:Family Discharge Delay Reason: Follow-Up Date:03/28/2017 12:00 AM Discharge Slot: Final Diagnosis: Placement Information Patient Contact Information Contact Name:DAISY Relationship:Daughter Address: City: [facility] Phone: [facility]/Zip Code: Email: Financial Information Financial Class:Medicare Advantage Plans Primary Plan Desc:[employer] GOLD MEDICARE Primary Plan Number:[id number] Secondary Plan Desc: Secondary Plan Number: Assessment Information [facility] CM Progress Note CM Note CM Note Notes: Patient admitted after feeling lightheaded at an INR check appointment. She is s/p AVR 03/15 and was admitted to [facility] 03/16. Her post-op course was complicated by A-Fib, and she is now volume overloaded. Per RN, patient has been very upset today, as a hvac technician told her she might need to have open heart surgery. Per this, patient declined PT and OT today. She lives alone and is normally indpendent. Discharge needs TBD, CM will follow. Date Signed: 03/17/2017 04:06 PM Electronically Signed By:Alana Farooq RN [facility] CM Progress Note CM Note CM Note Notes: Spoke to patient and daughter about possible discharge needs. Patient lives alone, daughter lives nearby. Talked about SNF Rehab and HC services. Patient not interested in either at this time. Her feelings may change so revisit her later to make final decision. Date Signed: 03/21/2017 10:02 AM Electronically Signed By:Micheline Tucker LCSW [facility] CM Progress Note CM Note CM Note Notes: Patient's chest x-ray report sent to [facility]. Appointment date and time on 03/20/17 CM Note. Date Signed: 03/21/2017 11:01 AM Electronically Signed By:Micheline Tucker LCSW [facility] CM Progress Note CM Note CM Note Notes: 03/24/2017 Case management note: Pt platelet count delaying d/c. Anticipate d/c early to mid week once platelet counts start climbing and coumadin started with INR in therapeutic range. Case Management d/c poc: Anticipating independent d/c when medically stable. Daughter is RN at [facility] and able to provide cares at home. Case Management to follow. Date Signed: 03/24/2017 05:33 PM Electronically Signed By:France Bales RN [facility] CM Progress Note CM Note CM Note Notes: CM met w/ pt for dispo planning. Pt reports that she will talk to daughter to determine if she wants HC or not. Pt reports that she has a supportive family. Pt is hoping to go home independent. The goal is to increase her platelet up to 100, currently pts platelet is at 82. CM to follow. Date Signed: 03/26/2017 02:41 PM Electronically Signed By:JACKI Sandoval [facility] Progress Note CM Note CM Note Notes: Pt's platelets are up. Pt willl likely DC soon. C/M will check with pt and dtr before DC about HC. Date Signed: 03/27/2017 04:00 PM Electronically Signed By:Siomara Cotto LCSW [facility] CM Progress Note CM Note CM Note Notes: Case management arranged director insurance and PT through [facility]. RN daily for 5 days starting 03/29; PT x 2 Mon and Mon. Pt to start cardiac rehab as directed by anticipate starting next week. Daughter to take pt home today. Case Management d/c poc: Home with [facility] home care and family support. Date Signed: 03/28/2017 03:41 PM Electronically Signed By:France Bales RN Intervention Information Intervention Type:*DORSEY-Signed Date of Service:03/17/2017 11:51 AM Patient Type:Observation Staff Member:Adeola Kate Hours: Discipline: Severity: Comment: Intervention Type:*IM-Signed Date of Service:03/28/2017 03:38 PM Patient Type:Inpatient Staff Member:Adeola Kate Hours: Discipline: Severity: Comment:
== END 2017-03-28 15:56 | disposition home health service (06) | DRG 219 ==
LOC: INTOOBSV 12:49 → F2W 15:00 → OBSVTOIN 03-17 15:32 → F2N 03-18 11:10 → F2W 03-21 16:06
PROVIDERS: ADMIT Internal Medicine; ATTEND Internal Medicine Interventional Cardiology
PROC: 02RF08Z Replacement of Aortic Valve with Zooplastic Tissue, Open Approach (ICD-10-PCS; principal; 2017-03-18 12:30)
PROC: 02RX0JZ Replacement of Thoracic Aorta, Ascending/Arch with Synthetic Substitute, Open Approach (ICD-10-PCS; principal; 2017-03-18 12:30)
PROC: 5A1221Z Performance of Cardiac Output, Continuous (ICD-10-PCS; principal; 2017-03-18 12:30)
PROC: 02HV33Z Insertion of Infusion Device into Superior Vena Cava, Percutaneous Approach (ICD-10-PCS; 2017-03-21)
DX: T82.867A Thrombosis due to cardiac prosthetic devices, implants and grafts, initial encounter (principal); I50.33 Acute on chronic diastolic (congestive) heart failure; D62 Acute posthemorrhagic anemia; D75.82 Heparin induced thrombocytopenia (HIT); I48.0 Paroxysmal atrial fibrillation; G43.109 Migraine with aura, not intractable, without status migrainosus
CPT/HCPCS: 82947-QW; 86022-90; 97116-GP; 97162-GP; 97166-GO; 97530-GO; 97530-GP; 97535-GO; C1751; C1768; G0378; G8987-GO-CK; G8988-GO-CI; J0153; J0282; J0690; J0883; J1170; J1265; J1644; J1652; J1815; J1940; J2001; J2250; J2260; J2370; J2405; J2704; J2720; J2765; J2930; J3010; J3370; J3430; J3475; J7060; P9016; P9017; P9021; P9035; P9041

== ENCOUNTER → 2017-04-11 | Outpatient (CLI) | payer OTHER | LOC: FIMAGING 09:32 | PROVIDERS: ATTEND Thoracic Surgery (Cardiothoracic Vascular Surgery) | DX: Z09 Encounter for follow-up examination after completed treatment for conditions other than malignant neoplasm (principal); Z95.2 Presence of prosthetic heart valve; J90 Pleural effusion, not elsewhere classified ==

== ENCOUNTER → 2017-04-25 | Outpatient (CLI) | payer OTHER | LOC: FIMAGING 10:16 | PROVIDERS: ATTEND Thoracic Surgery (Cardiothoracic Vascular Surgery) | DX: Z09 Encounter for follow-up examination after completed treatment for conditions other than malignant neoplasm (principal); J90 Pleural effusion, not elsewhere classified; J98.11 Atelectasis; Z95.828 Presence of other vascular implants and grafts ==

== ENCOUNTER → 2017-05-17 | Outpatient (CLI) | payer OTHER | LOC: FIMAGING 10:54 | PROVIDERS: ATTEND Psychiatry & Neurology Neurology | DX: R42 Dizziness and giddiness (principal); H53.2 Diplopia | CPT/HCPCS: 70496; 70498; Q9967 ==

== ENCOUNTER → 2017-05-30 | Outpatient (CLI) | payer OTHER | LOC: FIMAGING 09:12 → EDSTATUS 09:46 | PROVIDERS: ATTEND Internal Medicine Cardiovascular Disease | DX: J90 Pleural effusion, not elsewhere classified (principal) ==